=== PATIENT | female | born 1935 | race African-American/Black ===

== ENCOUNTER → 2016-11-30 | Outpatient (CLI) | payer OTHER, MEDICAID ==
[2014-06-05 09:46] VITALS: BP 151/80
[2016-11-30 10:25] LABS: EOSINOPHILS # (AUTO) 0.1 x10^3/uL (0.0-0.2); EOSINOPHILS % (AUTO) 3.6 % (0.9-2.9); HEMOGLOBIN 9.7 g/dL (12.0-16.0); LYMPHOCYTES # (AUTO) 1.6 X10^3/uL (1.3-2.9); LYMPHOCYTES % (AUTO) 41.6 % (21.0-51.0); MEAN CORPUSCULAR HEMOGLOBIN 24.7 pg (27.0-34.0); MEAN CORPUSCULAR HGB CONC 31.2 g/dL (33.0-35.0); MEAN CORPUSCULAR VOLUME 79.4 fL (80.0-100.0); MEAN PLATELET VOLUME 7.6 fL (7.4-11.0); MONOCYTES # (AUTO) 0.4 x10^3/uL (0.3-0.8); MONOCYTES % (AUTO) 11.7 % (0.0-13.0); NEUTROPHILS # (AUTO) 1.6 x10^3/uL (2.2-4.8); NEUTROPHILS % (AUTO) 42.1 % (42.0-75.0); PLATELET COUNT 184 X10^3/uL (150.0-450.0); RED BLOOD COUNT 3.91 X10^6/uL (3.5-5.4); RED CELL DISTRIBUTION WIDTH 17.5 % (11.6-16.5); WHITE BLOOD COUNT 3.8 X10^3/uL (3.6-10.0)
[2016-11-30 11:00] LABS: ALANINE AMINOTRANSFERASE 22 Units/L (12-78); ALBUMIN 3.2 g/dL (3.4-5.0); ALKALINE PHOSPHATASE 43 Units/L (46-116); ASPARTATE AMINO TRANSFERASE 15 Units/L (15-37); BLOOD UREA NITROGEN 14 mg/dL (7-18); CARBON DIOXIDE 30.6 mmol/L (21-32); CHLORIDE 109 mmol/L (98-107); COR CA(FOR HYPOALB) 9.6 mg/dL (8.5-10.1); GLUCOSE 83 mg/dL (65-99); SODIUM 143 mmol/L (136-145); eGFR BLACK RACES > 60 (>60); eGFR NON BLACK RACES 51 (>60)
[2016-11-30 11:28] LABS: ANISOCYTOSIS SLIGHT; HYPOCHROMASIA SLIGHT; PLATELET MORPHOLOGY COMMENT NORMAL (NORMAL)
[2016-11-30 12:10] LABS: IRON 118 ug/dL (50-175); TOTAL IRON BINDING CAPACITY 210 ug/dL (250-450)
[2016-12-04 00:50] LABS: ALBUMIN (SPEP) 3.47 g/dL (3.75-5.01); ALPHA-2 (SPEP) 0.65 g/dL (0.48-1.05); GAMMA (SPEP) 0.51 g/dL (0.62-1.51)
[2016-12-04 07:22] LABS: IMMUNOGLOBULIN M 25 mg/dL (35-263)
== END ==
LOC: LAB 09:41
PROVIDERS: ATTEND Internal Medicine Medical Oncology
DX: C90.02 Multiple myeloma in relapse (principal)
CPT/HCPCS: 36415; 80053; 82728; 82784; 83540; 83550; 84165; 84166; 85025; 86334

== ENCOUNTER 2017-01-16 11:33 | Emergency (ER) | payer OTHER, MEDICAID ==
[2017-01-16 11:37] VITALS: BP 120/55; BMI 23.3
--- NOTE | 2017-01-16 12:46 | DR.GENAD ---
HPI - PCP Primary Care Physician: ARELI OCHOA - HPI Comment HPI Comment: HISTORY BELOW. - Complaint/Symptoms Chief Complaint Doctors Comments: SWOLLEN PAINFUL RT ANKLE AND PAIN NOTED THIS AM. NO TRAUMA REPORTED. Chief Complaint:: RIGHT FOOT SWOLLEN AND PAINFUL. THIS STARTED THIS MORNING. - Nurses notes reviewed Nurses Notes Review: Yes - Source History Provided: Patient - Mode of Arrival Mode of Arrival: Wheelchair - Timing Onset of Chief Complaint: 01/16/17 Came on: Suddenly - Duration Duration: Constant Duration: Hours - Severity Severity: Moderate PMH - PMH Past Medical History: Yes Past Medical History: Anemia, Arthritis, Hypertension Past Surgical History: Yes Surgical History: , Hysterectomy, Tonsillectomy - Family History History of Family Medical Conditions: Yes Family Medical History: Diabetes Mellitus, Cancer, Hypertension - Social History Does patient currently use any type of tobacco product: No Have you used tobacco products in the last 12 months: No Type of Tobacco Use: None Does any household member use tobacco: No Alcohol Use: None Do you use any recreational Drugs:: No Lives With: Family Lives Where: Home - infectious screening In the last 2 months have you had wt loss of >10#?: NO Have you had fever, night sweats or hemotysis?: No Have you traveled outside the country in the last 6 months?: No Isolation: Standard ROS - Review of Systems Constitutional: No Symptoms Reported Eyes: No Symptoms Reported ENTM: No Symptoms Reported Respiratoy: No Symptoms Reported Cardiovascular: No Symptoms Reported Gastrointestinal/Abdominal: No Symptoms Reported Genitourinary: No Symptoms Reported Neurological: No Symptoms Reported Musculoskeletal: Joint Pain, Joint Swelling, Muscle Pain, Right, Ankle, Foot Integumentary: No Symptoms Reported Hematologic/Lymphatic: No Symptoms Reported Endocrine: No Symptoms Reported All Other Systems: Reviewed and Negative PE - Vital Signs Vitals: Temperature 98.4 F Pulse Rate 87 Respiratory Rate 20 Blood Pressure [Right Arm] 110/78 Blood Pressure 120/55 O2 Sat by Pulse Oximetry 99 - General Limitations: No Limitations General Appearance: Alert - Head Head Exam: Normal Inspection - Eyes Eye exam: Normal Appearance - ENT ENT Exam: Normal External Ear Exam External Ear Exam: Normal External Inspection Throat Exam: Normal Inspection - Neck Neck Exam: Trachea Midline. negative: Tenderness, Meningismus, Lymphadenopathy - Chest Chest Inspection: Symmetric Chest Wall Rise - Respiratory Respiratory Exam: Normal Lung Sounds Bilat Respiratory Exam: Bilateral Rhonchi, Lower Rhonchi - Cardiovascular Cardiovascular Exam: Regular Rate, Normal Rhythm, Normal Heart Sounds - Abdominal Exam Abdominal Exam: Normal Inspection - Extremities Extremities Exam: Tenderness (RT FOOT AND ANKLE SWOLLEN AND TENDER.), Joint Swelling (RT ANKLE) - Back Back Exam: Paraspinal Tenderness - Neurologic Neurological Exam: Alert, Oriented X3 - Psychiatric Psychiatric Exam: Normal Affect, Normal Mood - Skin Skin Exam: Normal Color MDM - Additional Information Additional Information Obtained From: Family - Differential Diagnosis Differential Diagnosis: RT ANKLE SPRAIN, RT FOOT SPRAIN Course - Treatment Treatment: SEE ORDERS. POST OP SHOES PLACE IN ED. - Education/Counseling Education/Counseling: Patient, Education Educated On: Treatment, Diagnosis, Needs for Follow Up ROR - XRAY XRAY Interpreted by: Radiologist XRAY Findings: REPORT DISCUSS WITH PATIENT. - Diagnosis Discharge Problem: Ankle sprain Qualifiers: Encounter type: initial encounter Involved ligament of ankle: unspecified ligament Laterality: right Qualified Code(s): S93.401A - Sprain of unspecified ligament of right ankle, initial encounter Foot sprain Qualifiers: Encounter type: initial encounter Laterality: right Qualified Code(s): S93.601A - Unspecified sprain of right foot, initial encounter - Discharge Plan Disposition: HOME, SELF-CARE Condition: Stable Prescriptions: Hydrocodone-Acet 5 mg/325 mg [[place] 5/325 mg Tab] 1 tab PO Q12H PRN #12 tab PRN Reason: Pain - Follow ups/Referrals Follow ups/Referrals: ISSA OCHOA [Primary Care Provider] - 3 days - Instructions Instructions: Foot Contusion, [id number], Ankle Sprain, [id number] Additional Instructions: RETURN TO ED IF WORSE.
--- NOTE | 2017-01-16 13:11 | RAD ---
HISTORY: Pain/swelling. Study: Multiple views of the right foot and ankle. Comparison: None. Findings: Mild osteoarthritis at the 1st MTP joint and dorsal midfoot. Diffuse osteopenia. Marked soft tissue swelling is seen over the dorsal forefoot and about the ankle. No significant effusion. The visualiz ed Lisfranc joint appears intact, but is inadequately evaluated on these nonweightbearing views. No obvious fracture or dislocation. Large calcaneal enthesophyte. The talar dome and ankle mortise luz elena ear intact. IMPRESSION: 1. Soft tissue swelling without obvious acute osseous abnormality. 2. Inadequate evaluation of the Lisfranc joint. If clinically concerned, recommend weight-bearing vi ews. Reported By:
[2017-01-16] MEDS ORDERED: DECADRON TAB PO ONE (13:54)
== END 2017-01-16 14:02 | disposition home or self-care (01) ==
LOC: ER 11:44
DX: S93.401A Sprain of unspecified ligament of right ankle, initial encounter (principal); S93.601A Unspecified sprain of right foot, initial encounter; M79.89 Other specified soft tissue disorders; Y33.XXXA Other specified events, undetermined intent, initial encounter; Y92.9 Unspecified place or not applicable
CPT/HCPCS: 73610; 73630; 99282; 99283

== ENCOUNTER → 2017-04-13 | Outpatient (CLI) | payer OTHER, MEDICAID ==
[2017-04-15 22:06] LABS: ALBUMIN (SPEP) 3.49 g/dL (3.75-5.01); ALPHA-1 (SPEP) 0.44 g/dL (0.19-0.46); ALPHA-2 (SPEP) 0.88 g/dL (0.48-1.05); GAMMA (SPEP) 0.48 g/dL (0.62-1.51)
[2017-04-16 06:35] LABS: IMMUNOGLOBULIN M 25 mg/dL (35-263)
== END ==
LOC: LAB 09:29
PROVIDERS: ATTEND Internal Medicine Medical Oncology
DX: C90.02 Multiple myeloma in relapse (principal); D64.89 Other specified anemias
CPT/HCPCS: 36415; 82784; 84165; 84166

== ENCOUNTER → 2017-04-17 | Outpatient (CLI) | payer OTHER, MEDICAID ==
--- NOTE | 2017-04-19 12:51 | RAD ---
HISTORY: Right shoulder pain. Study: Three views of the right shoulder. Comparison: None. Findings: Mild osteoarthritis of the right acromioclavicular joint. Small subacromial spurring. The visualized lung is clear. No acute cortical disruption or dislocation can be identified. No significant soft ti ssue swelling or injury can be seen. IMPRESSION: Chronic findings as above. Reported By:
--- NOTE | 2017-04-21 06:58 | RAD ---
HISTORY: Chest wall mass Study: Two-view chest Comparison: 06/05/2014 Findings: The trachea is midline. The cardiac silhouette is unremarkable. Chronic interstitial lung changes a re observed without focal infiltrate or effusion.. The bony thorax is unremarkable. IMPRESSION: 1. No acute cardiopulmonary disease. Reported By:
== END | disposition home or self-care (01) ==
LOC: RAD 15:16
PROVIDERS: ATTEND Nurse Practitioner Family
DX: R22.2 Localized swelling, mass and lump, trunk (principal); C90.01 Multiple myeloma in remission; M25.562 Pain in left knee; M25.511 Pain in right shoulder; M75.81 Other shoulder lesions, right shoulder; M19.011 Primary osteoarthritis, right shoulder
CPT/HCPCS: 71020; 73030

== ENCOUNTER → 2017-04-24 | Outpatient (CLI) | payer OTHER, MEDICAID | LOC: LTCLAB 15:59 | PROVIDERS: ATTEND Internal Medicine Medical Oncology | DX: C90.02 Multiple myeloma in relapse (principal); D64.89 Other specified anemias | CPT/HCPCS: 36415 ==

== ENCOUNTER 2017-08-14 11:38 | Emergency (ER) | payer OTHER, MEDICAID ==
[2017-08-14 11:41] VITALS: BP 127/80; BMI 23.3
--- NOTE | 2017-08-14 11:45 | DR.LACERAT ---
HPI - Time Seen Time seen: 11:45 - Primary Care Physician Primary Care Physician: Hakan OCHOA - Complaints Chief Complaint Doctors Comments: History as stated. Chief Complaint:: PT. DROPPED A PACK OF COKES ON HER LEFT LEG [facility]ILE [facility]. LACERATION NOTED TO LOWER PART OF LEFT LEG. - Source History Provided: Patient - Mode of Arrival Mode of Arrival: Ambulatory - Timing Onset of Chief Complaint: 08/14/17 PMH - PMH Past Medical History: Yes Past Medical History: Anemia, Arthritis, Hypertension Past Surgical History: Yes Surgical History: , Hysterectomy, Tonsillectomy - Family History History of Family Medical Conditions: Yes Family Medical History: Diabetes Mellitus, Cancer, Hypertension - Social History Does patient currently use any type of tobacco product: No Have you used tobacco products in the last 12 months: No Type of Tobacco Use: None Does any household member use tobacco: No Alcohol Use: None Do you use any recreational Drugs:: No Lives With: Spouse Lives Where: Home - infectious screening In the last 2 months have you had wt loss of >10#?: NO Have you had fever, night sweats or hemotysis?: No Have you traveled outside the country in the last 6 months?: No Isolation: Standard ROS - Review of Systems Constitutional: No Symptoms Reported Eyes: No Symptoms Reported ENTM: No Symptoms Reported Respiratoy: No Symptoms Reported Cardiovascular: No Symptoms Reported Gastrointestinal/Abdominal: No Symptoms Reported Genitourinary: No Symptoms Reported Neurological: No Symptoms Reported Musculoskeletal: No Symptoms Reported Integumentary: Wound (A superficial abrasion of the left lower extremity anteriorally) Hematologic/Lymphatic: No Symptoms Reported Endocrine: No Symptoms Reported Psychiatric: No Symptoms Reported All Other Systems: Reviewed and Negative PE - Vital Signs Vitals: Temperature 98.4 F Pulse Rate 88 Respiratory Rate 16 Blood Pressure [Right Arm] 110/78 Blood Pressure 127/80 O2 Sat by Pulse Oximetry 97 - General General Appearance: Alert, In No Apparent Distress - Head Head Exam: Normal Inspection, Atraumatic - Eyes Eye exam: Normal Appearance, PERRL, EOMI - ENT ENT Exam: Normal Exam - Neck Neck Exam: Normal Inspection, Full ROM - Chest Chest Inspection: Normal Inspection, Symmetric Chest Wall Rise - Respiratory Respiratory Exam: Normal Lung Sounds Bilat Respiratory Exam: Bilateral Clear to Auscultation - Cardiovascular Cardiovascular Exam: Regular Rate, Normal Rhythm - Abdominal Exam Abdominal Exam: Normal Inspection, Normal Bowel Sounds Abdominal Tenderness: negative: RUQ, RLQ, LUQ, LLQ, Epigastrium, Suprapubic, Diffuse, Mild, Moderate, Severe, Other - Extremities Extremities Exam: Normal Inspection, Full ROM - Back Back Exam: Normal Inspection - Neurologic Neurological Exam: Alert, Oriented X3, CN II-XII Intact - Psychiatric Psychiatric Exam: Normal Affect, Normal Mood - Skin Skin Exam: Warm. negative: Intact (A superficial abrasion left lower anterior tibia) Type of Lesion: Laceration (A superficial laceration) Procedures - Laceration/Wound Repair Left Leg Wound Length (cm): 4 Wound's Depth, Shape: Superficial, Stellate Wound Explored: clean Betadine Prep?: Yes Wound Debrided: minimal Wound Repaired With: Dermabond - Diagnosis Discharge Problem: Abrasion of left leg Qualifiers: Encounter type: initial encounter Qualified Code(s): S80.812A - Abrasion, left lower leg, initial encounter - Discharge Plan Condition: Stable - Follow ups/Referrals Follow ups/Referrals: ISSA OCHOA [Primary Care Provider] - 3 days - Instructions
[2017-08-14] MEDS ORDERED: ADACEL TDaP IM ONE ×2 (12:05→12:06)
== END 2017-08-14 12:14 | disposition home or self-care (01) ==
LOC: ER 11:48
PROC: 0YQTXZZ Repair Right 3rd Toe, External Approach (ICD-10-PCS; principal; 2017-08-14)
DX: S80.812A Abrasion, left lower leg, initial encounter (principal); X58.XXXA Exposure to other specified factors, initial encounter; Y92.512 Supermarket, store or market as the place of occurrence of the external cause
CPT/HCPCS: 12002; 90471; 99282

== ENCOUNTER 2017-08-22 13:49 | Inpatient (IN) | payer OTHER, MEDICAID ==
[2017-08-22 13:56] VITALS: BMI 21.9
--- NOTE | 2017-08-22 14:22 | DR.EXTPAIN ---
HPI - Time seen Time seen: 14:20 - PCP Primary Care Physician: BILL LEARY - HPI Comment HPI Comment: HISTORY BELOW. - Complaint/Symptoms Chief Complaint Doctor Comments: 2 WEEKS AGO, 12 PK DRINK FELL ON LEFT SHEEN AND CUT PATIENT. THIS CUT IS INFECTED NOW WITH ACCENDING AND DECENDING REDNESS. INCREASE TEMP OVER LT LEG. NO FEVER. Chief Complaint:: PT C/O 2 WEEKS AGO DROPPING A 12 PACK OF DRINKS TO HER LEFT LOWER EXT AND SHE WAS SEEN IN ER AND NOT IT'S SWELLING AND PAINFUL... CELLULITITS NOTED AND EDEMA TO LEFT LOWER EXT.. BR - Nurses notes reviewed Nurses Notes Review: Yes - Source History Provided: Patient - Mode of arrival Mode of Arrival: Wheelchair - Timing Onset of Chief Complaint: 08/14/17 - Context History of: Arthritis - Associated signs and symptoms Associated Signs and Symptoms: Pain, Swelling, Bruising PMH - PMH Past Medical History: Yes Past Medical History: Anemia, Arthritis, Hypertension Past Surgical History: Yes Surgical History: , Hysterectomy, Tonsillectomy - Family History History of Family Medical Conditions: Yes Family Medical History: Diabetes Mellitus, Cancer, Hypertension - Social History Does patient currently use any type of tobacco product: No Have you used tobacco products in the last 12 months: No Type of Tobacco Use: None Does any household member use tobacco: No Alcohol Use: None Do you use any recreational Drugs:: No Lives With: Family Lives Where: Home - infectious screening In the last 2 months have you had wt loss of >10#?: NO Have you had fever, night sweats or hemotysis?: No Have you traveled outside the country in the last 6 months?: No Isolation: Standard ROS - Review of Systems Constitutional: No Symptoms Reported Eyes: No Symptoms Reported ENTM: No Symptoms Reported Respiratoy: No Symptoms Reported Cardiovascular: No Symptoms Reported Gastrointestinal/Abdominal: No Symptoms Reported Genitourinary: No Symptoms Reported Neurological: No Symptoms Reported Musculoskeletal: Left, Leg, Ankle, Foot Integumentary: No Symptoms Reported Hematologic/Lymphatic: No Symptoms Reported All Other Systems: Reviewed and Negative PE - Vital Signs Vitals: Temperature 99.0 F Pulse Rate 109 Respiratory Rate 20 Blood Pressure [Right Arm] 110/78 Blood Pressure 113/61 O2 Sat by Pulse Oximetry 99 - General Limitations: No Limitations General Appearance: Alert - Head Head Exam: Normal Inspection - Eyes Eye exam: Normal Appearance - ENT ENT Exam: Normal External Ear Exam - Neck Neck Exam: Normal Inspection - Chest Chest Inspection: Symmetric Chest Wall Rise - Respiratory Respiratory Exam: Normal Lung Sounds Bilat ( ) Respiratory Exam: Bilateral Wheezing - Cardiovascular Cardiovascular Exam: Regular Rate, Normal Rhythm, Normal Heart Sounds - Abdominal Exam Abdominal Exam: Normal Bowel Sounds, Soft. negative: Tenderness - Extremities Extremities Exam: Tenderness (LEFT AND FOOT SWOLLEN AND TENDER. ANTERIOR MID SHEEN HAVE INFECTED LACERATION.) - Lower Extremities Neurovascular/Tendon Exam: Normal Capillary Refill Gait Exam: Observed & Limited by Pain - Back Back Exam: Normal Inspection - Neurological Neurological Exam: Alert, Oriented X3 - Psychiatric Psychiatric Exam: Normal Affect, Normal Mood - Skin Skin Exam: Erythema MDM - Differential Diagnosis Differential Diagnosis: Other (CELLULITIS, INFECTED WOUND.) Course - Treatment Treatment: SEE ORDERS. - Consultation Consultation Comments: DISCUSS PATIENT WITH DR ROMERO. HE WILL ADMIT PATIENT. - Education/Counseling Education/Counseling: Patient, Education Educated On: Treatment, Diagnosis ROR - Labs Reviewed Laboratory Results Reviewed?: Yes Result Diagrams: 08/23/17 04:15 08/23/17 04:15 - Diagnosis Discharge Problem: Cellulitis of left leg Traumatic open wound of left lower leg with infection Qualifiers: Encounter type: initial encounter Qualified Code(s): S81.802A - Unspecified open wound, left lower leg, initial encounter; L08.9 - Local infection of the skin and subcutaneous tissue, unspecified; L08.9 - Local infection of the skin and subcutaneous tissue, unspecified - Discharge Plan Disposition: ADMITTED INPATIENT Condition: Stable - Follow ups/Referrals - Instructions
[2017-08-22] MEDS ORDERED: VANCOMYCIN HCL 1 GM VIAL 1 GM in D5W 250 ML IV 250 ML IV ONE (14:32)
[2017-08-22] MEDS ORDERED: VANCOMYCIN HCL 1 GM VIAL ONE (14:51)
[2017-08-22] MEDS ORDERED: NS 250 ML IV 250 ML IV ONE (14:52)
[2017-08-22] MEDS ORDERED: NS 1000 ML 1,000 ML IV SCH (15:00)
[2017-08-22 15:22] LABS: ALANINE AMINOTRANSFERASE 15 Units/L (12-78); ALBUMIN 3.3 g/dL (3.4-5.0); ALKALINE PHOSPHATASE 46 Units/L (46-116); ASPARTATE AMINO TRANSFERASE 9 Units/L (15-37); BLOOD UREA NITROGEN 13 mg/dL (7-18); CHLORIDE 102 mmol/L (98-107); COR CA(FOR HYPOALB) 9.6 mg/dL (8.5-10.1); SODIUM 137 mmol/L (136-145); TOTAL PROTEIN 6.2 g/dL (6.4-8.2); eGFR BLACK RACES > 60 (>60); eGFR NON BLACK RACES 51 (>60)
[2017-08-22 15:36] LABS: BASOPHILS % (AUTO) 0.1 % (0.2-1.0); EOSINOPHILS # (AUTO) 0.1 x10^3/uL (0.0-0.2); EOSINOPHILS % (AUTO) 1.1 % (0.9-2.9); HEMATOCRIT 29.4 % (36.0-47.0); HEMOGLOBIN 9.6 g/dL (12.0-16.0); LYMPHOCYTES # (AUTO) 0.9 X10^3/uL (1.3-2.9); LYMPHOCYTES % (AUTO) 9.8 % (21.0-51.0); MEAN CORPUSCULAR HEMOGLOBIN 26.2 pg (27.0-34.0); MEAN CORPUSCULAR HGB CONC 32.6 g/dL (33.0-35.0); MEAN CORPUSCULAR VOLUME 80.3 fL (80.0-100.0); MEAN PLATELET VOLUME 8.6 fL (7.4-11.0); MONOCYTES # (AUTO) 0.6 x10^3/uL (0.3-0.8); MONOCYTES % (AUTO) 6.4 % (0.0-13.0); NEUTROPHILS # (AUTO) 7.8 x10^3/uL (2.2-4.8); NEUTROPHILS % (AUTO) 82.6 % (42.0-75.0); PLATELET COUNT 158 X10^3/uL (150.0-450.0); RED BLOOD COUNT 3.66 X10^6/uL (3.5-5.4); RED CELL DISTRIBUTION WIDTH 18.5 % (11.6-16.5); WHITE BLOOD COUNT 9.4 X10^3/uL (3.6-10.0)
[2017-08-22 15:38] LABS: LACTIC ACID 1.3 mmol/L (0.4-2.0)
[2017-08-22] MEDS ORDERED: ZOFRAN INJ 4 MG VIAL IVP PRN (17:50)
[2017-08-22] MEDS: NS 1000 ML 1,000 ML IV SCH (18:25)
[2017-08-22] MEDS: MORPHINE SULFATE INJ 2 MG INJ IVP PRN (18:56)
[2017-08-22] MEDS: PHARMACY CONSULT - VANCOMYCIN XX SCH (19:13)
[2017-08-22] MEDS: ZOSYN VIAL 3.375 GM 3.375 GM in NS 100 ML IV + SPIKE MINIBAG* 100 ML IV SCH (21:42)
[2017-08-23] MEDS: NS 1000 ML 1,000 ML IV SCH ×4 (02:27→17:30)
[2017-08-23] MEDS: ZOSYN VIAL 3.375 GM 3.375 GM in NS 100 ML IV + SPIKE MINIBAG* 100 ML IV SCH ×3 (06:08→21:07)
[2017-08-23 06:13] LABS: BASOPHILS % (AUTO) 0.5 % (0.2-1.0); EOSINOPHILS # (AUTO) 0.3 x10^3/uL (0.0-0.2); EOSINOPHILS % (AUTO) 3.8 % (0.9-2.9); HEMATOCRIT 26.7 % (36.0-47.0); HEMOGLOBIN 8.7 g/dL (12.0-16.0); LYMPHOCYTES # (AUTO) 1.5 X10^3/uL (1.3-2.9); LYMPHOCYTES % (AUTO) 21.7 % (21.0-51.0); MEAN CORPUSCULAR HEMOGLOBIN 25.9 pg (27.0-34.0); MEAN CORPUSCULAR HGB CONC 32.6 g/dL (33.0-35.0); MEAN CORPUSCULAR VOLUME 79.6 fL (80.0-100.0); MEAN PLATELET VOLUME 9.1 fL (7.4-11.0); MONOCYTES # (AUTO) 0.6 x10^3/uL (0.3-0.8); MONOCYTES % (AUTO) 9.1 % (0.0-13.0); NEUTROPHILS # (AUTO) 4.5 x10^3/uL (2.2-4.8); NEUTROPHILS % (AUTO) 64.9 % (42.0-75.0); PLATELET COUNT 138 X10^3/uL (150.0-450.0); RED BLOOD COUNT 3.35 X10^6/uL (3.5-5.4); RED CELL DISTRIBUTION WIDTH 18.8 % (11.6-16.5); WHITE BLOOD COUNT 6.9 X10^3/uL (3.6-10.0)
[2017-08-23 06:28] LABS: ALANINE AMINOTRANSFERASE 10 Units/L (12-78); ALBUMIN 2.5 g/dL (3.4-5.0); ALKALINE PHOSPHATASE 40 Units/L (46-116); ASPARTATE AMINO TRANSFERASE 16 Units/L (15-37); BLOOD UREA NITROGEN 11 mg/dL (7-18); CALCIUM 8.4 mg/dL (8.5-10.1); CARBON DIOXIDE 25.4 mmol/L (21-32); CHLORIDE 105 mmol/L (98-107); COR CA(FOR HYPOALB) 9.6 mg/dL (8.5-10.1); CREATININE 1.04 mg/dL (0.55-1.02); SODIUM 139 mmol/L (136-145); TOTAL PROTEIN 5.4 g/dL (6.4-8.2); eGFR BLACK RACES > 60 (>60); eGFR NON BLACK RACES 54 (>60)
[2017-08-23 07:06] LABS: ANISOCYTOSIS 2+; HYPOCHROMASIA 1+; PLATELET MORPHOLOGY COMMENT NORMAL (NORMAL)
[2017-08-23] MEDS ORDERED: POTASSIUM CITRATE PO SCH (10:00)
[2017-08-23] MEDS ORDERED: BUSPIRONE HCL 7.5 MG PO SCH (10:00)
[2017-08-23] MEDS ORDERED: ZESTRIL TAB 20 MG ONE (10:43)
[2017-08-23] MEDS: ASPIRIN 81 MG CHEWTAB PO SCH (10:46)
[2017-08-23] MEDS: MICRO K EXTEN CAP 10 MEQ PO SCH (10:47)
[2017-08-23] MEDS: NORVASC TAB 5 MG PO SCH (10:47)
[2017-08-23] MEDS: ZESTRIL TAB 20 MG PO SCH (10:47)
[2017-08-23] MEDS: XARELTO PO SCH (10:48)
[2017-08-23] MEDS: PriLOSEC PO SCH ×2 (10:48→20:44)
[2017-08-23] MEDS: BUSPAR PO SCH ×2 (13:32→21:07)
[2017-08-23] MEDS: MORPHINE SULFATE INJ 2 MG INJ IVP PRN ×2 (13:51→21:07)
[2017-08-23] MEDS ORDERED: VANCOMYCIN HCL 1 GM VIAL 1 GM in D5W 250 ML IV 250 ML IV SCH (14:00)
[2017-08-23] MEDS: PHARMACY CONSULT - VANCOMYCIN XX SCH (18:59)
[2017-08-24] MEDS: NS 1000 ML 1,000 ML IV SCH ×3 (05:01→18:09)
[2017-08-24] MEDS: BUSPAR PO SCH ×3 (05:18→21:17)
[2017-08-24] MEDS: ZOSYN VIAL 3.375 GM 3.375 GM in NS 100 ML IV + SPIKE MINIBAG* 100 ML IV SCH ×3 (05:18→21:17)
[2017-08-24 05:22] LABS: BASOPHILS % (AUTO) 0.4 % (0.2-1.0); EOSINOPHILS # (AUTO) 0.3 x10^3/uL (0.0-0.2); EOSINOPHILS % (AUTO) 6.9 % (0.9-2.9); HEMATOCRIT 22.8 % (36.0-47.0); HEMOGLOBIN 7.3 g/dL (12.0-16.0); LYMPHOCYTES # (AUTO) 0.8 X10^3/uL (1.3-2.9); LYMPHOCYTES % (AUTO) 17.5 % (21.0-51.0); MEAN CORPUSCULAR HEMOGLOBIN 25.6 pg (27.0-34.0); MEAN PLATELET VOLUME 9.2 fL (7.4-11.0); MONOCYTES # (AUTO) 0.8 x10^3/uL (0.3-0.8); MONOCYTES % (AUTO) 17.1 % (0.0-13.0); NEUTROPHILS # (AUTO) 2.8 x10^3/uL (2.2-4.8); NEUTROPHILS % (AUTO) 58.1 % (42.0-75.0); PLATELET COUNT 118 X10^3/uL (150.0-450.0); RED BLOOD COUNT 2.85 X10^6/uL (3.5-5.4); RED CELL DISTRIBUTION WIDTH 18.5 % (11.6-16.5); WHITE BLOOD COUNT 4.8 X10^3/uL (3.6-10.0)
[2017-08-24 05:29] LABS: ALANINE AMINOTRANSFERASE 14 Units/L (12-78); ALKALINE PHOSPHATASE 39 Units/L (46-116); ASPARTATE AMINO TRANSFERASE 10 Units/L (15-37); BLOOD UREA NITROGEN 9 mg/dL (7-18); CALCIUM 7.7 mg/dL (8.5-10.1); CARBON DIOXIDE 24.9 mmol/L (21-32); CHLORIDE 108 mmol/L (98-107); COR CA(FOR HYPOALB) 9.3 mg/dL (8.5-10.1); CREATININE 0.94 mg/dL (0.55-1.02); SODIUM 140 mmol/L (136-145); TOTAL PROTEIN 4.7 g/dL (6.4-8.2); eGFR BLACK RACES > 60 (>60); eGFR NON BLACK RACES > 60 (>60)
[2017-08-24 05:35] LABS: PLATELET MORPHOLOGY COMMENT NORMAL (NORMAL)
[2017-08-24 05:36] LABS: ANISOCYTOSIS 2+; HYPOCHROMASIA 1+
[2017-08-24] MEDS ORDERED: ZESTRIL TAB 20 MG ONE (08:20)
[2017-08-24] MEDS: ASPIRIN 81 MG CHEWTAB PO SCH (08:29)
[2017-08-24] MEDS: NORVASC TAB 5 MG PO SCH (08:29)
[2017-08-24] MEDS: PriLOSEC PO SCH ×2 (08:29→20:35)
[2017-08-24] MEDS: XARELTO PO SCH (08:29)
[2017-08-24] MEDS: MICRO K EXTEN CAP 10 MEQ PO SCH (08:29)
[2017-08-24] MEDS: ZESTRIL TAB 20 MG PO SCH (08:29)
[2017-08-24] MEDS: MORPHINE SULFATE INJ 2 MG INJ IVP PRN ×2 (08:48→17:39)
[2017-08-24] MEDS ORDERED: NS 500 ML IV 500 ML IV ONE (09:30)
[2017-08-24] MEDS: CIPRO IV 400 MG PREMIX* 400 MG/200 ML IV.SOLN. IV SCH ×2 (10:34→20:38)
[2017-08-24] MEDS: NORCO 5/325 MG TAB PO PRN (20:35)
[2017-08-25] MEDS: MORPHINE SULFATE INJ 2 MG INJ IVP PRN (01:20)
[2017-08-25] MEDS: BUSPAR PO SCH ×3 (05:34→21:06)
[2017-08-25] MEDS: ZOSYN VIAL 3.375 GM 3.375 GM in NS 100 ML IV + SPIKE MINIBAG* 100 ML IV SCH ×3 (05:34→21:06)
[2017-08-25 05:37] LABS: BASOPHILS % (AUTO) 0.3 % (0.2-1.0); EOSINOPHILS # (AUTO) 0.4 x10^3/uL (0.0-0.2); EOSINOPHILS % (AUTO) 5.6 % (0.9-2.9); HEMATOCRIT 30.6 % (36.0-47.0); HEMOGLOBIN 10.1 g/dL (12.0-16.0); LYMPHOCYTES # (AUTO) 1.1 X10^3/uL (1.3-2.9); LYMPHOCYTES % (AUTO) 14.6 % (21.0-51.0); MEAN CORPUSCULAR HEMOGLOBIN 26.9 pg (27.0-34.0); MEAN CORPUSCULAR HGB CONC 32.9 g/dL (33.0-35.0); MEAN CORPUSCULAR VOLUME 81.7 fL (80.0-100.0); MEAN PLATELET VOLUME 8.3 fL (7.4-11.0); MONOCYTES % (AUTO) 13.7 % (0.0-13.0); NEUTROPHILS # (AUTO) 4.9 x10^3/uL (2.2-4.8); NEUTROPHILS % (AUTO) 65.8 % (42.0-75.0); PLATELET COUNT 124 X10^3/uL (150.0-450.0); RED BLOOD COUNT 3.74 X10^6/uL (3.5-5.4); RED CELL DISTRIBUTION WIDTH 17.6 % (11.6-16.5); WHITE BLOOD COUNT 7.4 X10^3/uL (3.6-10.0)
[2017-08-25] MEDS: NS 1000 ML 1,000 ML IV SCH ×3 (05:38→17:00)
[2017-08-25 05:48] LABS: ALANINE AMINOTRANSFERASE 14 Units/L (12-78); ALBUMIN 2.2 g/dL (3.4-5.0); ALKALINE PHOSPHATASE 56 Units/L (46-116); ASPARTATE AMINO TRANSFERASE 12 Units/L (15-37); BLOOD UREA NITROGEN 9 mg/dL (7-18); CARBON DIOXIDE 25.1 mmol/L (21-32); CHLORIDE 107 mmol/L (98-107); COR CA(FOR HYPOALB) 9.4 mg/dL (8.5-10.1); CREATININE 0.91 mg/dL (0.55-1.02); SODIUM 139 mmol/L (136-145); TOTAL PROTEIN 5.4 g/dL (6.4-8.2); eGFR BLACK RACES > 60 (>60); eGFR NON BLACK RACES > 60 (>60)
[2017-08-25 06:07] LABS: ANISOCYTOSIS 2+; BAND NEUTROPHILS % 3 % (0-10); HYPOCHROMASIA 1+; PLATELET MORPHOLOGY COMMENT NORMAL (NORMAL)
[2017-08-25] MEDS ORDERED: ZESTRIL TAB 20 MG ONE (09:08)
[2017-08-25] MEDS: NORVASC TAB 5 MG PO SCH (09:15)
[2017-08-25] MEDS: NORCO 5/325 MG TAB PO PRN (09:15)
[2017-08-25] MEDS: PriLOSEC PO SCH ×2 (09:15→20:31)
[2017-08-25] MEDS: CIPRO IV 400 MG PREMIX* 400 MG/200 ML IV.SOLN. IV SCH ×2 (09:15→20:32)
[2017-08-25] MEDS: ZESTRIL TAB 20 MG PO SCH (09:15)
[2017-08-25] MEDS: XARELTO PO SCH (09:15)
[2017-08-25] MEDS: MICRO K EXTEN CAP 10 MEQ PO SCH (09:15)
[2017-08-25] MEDS: ASPIRIN 81 MG CHEWTAB PO SCH (09:15)
[2017-08-25] MEDS ORDERED: COLACE CAP 100 MG PO PRN (21:00)
[2017-08-26] MEDS: NS 1000 ML 1,000 ML IV SCH ×4 (00:43→10:36)
[2017-08-26] MEDS: NORCO 5/325 MG TAB PO PRN (00:43)
[2017-08-26] MEDS: ZOSYN VIAL 3.375 GM 3.375 GM in NS 100 ML IV + SPIKE MINIBAG* 100 ML IV SCH (05:25)
[2017-08-26] MEDS: BUSPAR PO SCH (05:25)
[2017-08-26 05:34] LABS: BASOPHILS % (AUTO) 0.4 % (0.2-1.0); EOSINOPHILS # (AUTO) 0.2 x10^3/uL (0.0-0.2); EOSINOPHILS % (AUTO) 3.9 % (0.9-2.9); HEMATOCRIT 28.6 % (36.0-47.0); HEMOGLOBIN 9.5 g/dL (12.0-16.0); LYMPHOCYTES # (AUTO) 0.9 X10^3/uL (1.3-2.9); LYMPHOCYTES % (AUTO) 17.4 % (21.0-51.0); MEAN CORPUSCULAR HEMOGLOBIN 26.9 pg (27.0-34.0); MEAN CORPUSCULAR HGB CONC 33.2 g/dL (33.0-35.0); MEAN CORPUSCULAR VOLUME 81.2 fL (80.0-100.0); MEAN PLATELET VOLUME 7.7 fL (7.4-11.0); MONOCYTES # (AUTO) 0.9 x10^3/uL (0.3-0.8); MONOCYTES % (AUTO) 17.8 % (0.0-13.0); NEUTROPHILS # (AUTO) 3.1 x10^3/uL (2.2-4.8); NEUTROPHILS % (AUTO) 60.5 % (42.0-75.0); PLATELET COUNT 116 X10^3/uL (150.0-450.0); RED BLOOD COUNT 3.52 X10^6/uL (3.5-5.4); RED CELL DISTRIBUTION WIDTH 17.6 % (11.6-16.5); WHITE BLOOD COUNT 5.1 X10^3/uL (3.6-10.0)
[2017-08-26 05:49] LABS: ALANINE AMINOTRANSFERASE 13 Units/L (12-78); ALBUMIN 1.8 g/dL (3.4-5.0); ALKALINE PHOSPHATASE 63 Units/L (46-116); ASPARTATE AMINO TRANSFERASE 11 Units/L (15-37); BLOOD UREA NITROGEN 10 mg/dL (7-18); CARBON DIOXIDE 21.8 mmol/L (21-32); CHLORIDE 109 mmol/L (98-107); COR CA(FOR HYPOALB) 9.8 mg/dL (8.5-10.1); CREATININE 0.89 mg/dL (0.55-1.02); SODIUM 140 mmol/L (136-145); TOTAL PROTEIN 5.1 g/dL (6.4-8.2); eGFR BLACK RACES > 60 (>60); eGFR NON BLACK RACES > 60 (>60)
[2017-08-26] MEDS ORDERED: ZESTRIL TAB 20 MG ONE (08:17)
[2017-08-26] MEDS: PriLOSEC PO SCH (08:26)
[2017-08-26] MEDS: XARELTO PO SCH (08:26)
[2017-08-26] MEDS: ASPIRIN 81 MG CHEWTAB PO SCH (08:26)
[2017-08-26] MEDS: ZESTRIL TAB 20 MG PO SCH (08:27)
[2017-08-26] MEDS: CIPRO IV 400 MG PREMIX* 400 MG/200 ML IV.SOLN. IV SCH (08:27)
[2017-08-26] MEDS: NORVASC TAB 5 MG PO SCH (08:27)
[2017-08-26] MEDS: MICRO K EXTEN CAP 10 MEQ PO SCH (08:27)
[2017-08-26 09:49] VITALS: BP 144/65
== END 2017-08-26 10:57 | disposition home or self-care (01) | DRG 603 ==
LOC: ER 14:02 → MED/SURG 17:41
PROVIDERS: ADMIT Obstetrics & Gynecology Obstetrics; ATTEND Obstetrics & Gynecology Obstetrics
PROC: 30233N1 Transfusion of Nonautologous Red Blood Cells into Peripheral Vein, Percutaneous Approach (ICD-10-PCS; principal; 2017-08-24)
PROC: 30233N1 Transfusion of Nonautologous Red Blood Cells into Peripheral Vein, Percutaneous Approach (ICD-10-PCS; 2017-08-24)
DX: L03.116 Cellulitis of left lower limb (principal); R60.1 Generalized edema; I10 Essential (primary) hypertension; S81.802A Unspecified open wound, left lower leg, initial encounter; K21.9 Gastro-esophageal reflux disease without esophagitis; E87.6 Hypokalemia; F41.8 Other specified anxiety disorders; B96.5 Pseudomonas (aeruginosa) (mallei) (pseudomallei) as the cause of diseases classified elsewhere; Z23 Encounter for immunization; D64.89 Other specified anemias; W20.8XXA Other cause of strike by thrown, projected or falling object, initial encounter; Y92.89 Other specified places as the place of occurrence of the external cause
CPT/HCPCS: 36415; 80053; 82607; 82728; 82746; 83540; 83605; 84466; 85025; 85378; 86140; 86850; 86900; 86901; 86922; 87040; 87070; 87075; 87077; 87186; 87205; 96365; 96367; 96374; 99284; A4222; P9016; J0744; J2270; J2543; J3370

== ENCOUNTER 2017-09-14 09:57 | Emergency (ER) | payer OTHER, MEDICAID ==
[2017-09-14 10:07] VITALS: BP 121/70; BMI 25.0
[2017-09-14] MEDS ORDERED: DECADRON INJ IM ONE (10:16)
[2017-09-14] MEDS ORDERED: DEMEROL INJ IM ONE (10:20)
[2017-09-14] MEDS ORDERED: DEMEROL INJ ONE (10:21)
[2017-09-14] MEDS ORDERED: DECADRON INJ ONE (10:21)
--- NOTE | 2017-09-14 10:21 | DR.GENAD ---
HPI - PCP Primary Care Physician: george croft - Complaint/Symptoms Chief Complaint Doctors Comments: Patient presents with generalized pain secondary to osteoarthritis. Patient refuses to take medication for her condition. Today complains of multi joint pain. Can move without paiin. Chief Complaint:: patient stated her left lower leg and her left wrist has been hurting for the past 30 minutes - Source History Provided: Patient - Mode of Arrival Mode of Arrival: EMS - Timing Onset of Chief Complaint: 09/14/17 PMH - PMH Past Medical History: Yes Past Medical History: Anemia, Arthritis, Hypertension Past Surgical History: Yes Surgical History: , Hysterectomy, Tonsillectomy - Family History History of Family Medical Conditions: Yes Family Medical History: Diabetes Mellitus, Cancer, Hypertension - Social History Does patient currently use any type of tobacco product: No Have you used tobacco products in the last 12 months: No Type of Tobacco Use: None Does any household member use tobacco: No Alcohol Use: None Do you use any recreational Drugs:: No Lives With: Alone Lives Where: Home - infectious screening In the last 2 months have you had wt loss of >10#?: NO Have you had fever, night sweats or hemotysis?: No Have you traveled outside the country in the last 6 months?: No Isolation: Standard ROS - Review of Systems Constitutional: See HPI Eyes: No Symptoms Reported ENTM: No Symptoms Reported Respiratoy: No Symptoms Reported Cardiovascular: No Symptoms Reported Gastrointestinal/Abdominal: No Symptoms Reported Genitourinary: No Symptoms Reported Neurological: No Symptoms Reported Musculoskeletal: See HPI, Other Integumentary: No Symptoms Reported. negative: See HPI (generalized joint pain) , Change in Color, Change in Hair/Nails, Dryness, Lesions, Lumps, Rash, Itching , Wound, Bruises, Juandice, Other Hematologic/Lymphatic: No Symptoms Reported Endocrine: No Symptoms Reported Psychiatric: No Symptoms Reported All Other Systems: Reviewed and Negative PE - Vital Signs Vitals: Temperature 991 F Pulse Rate 104 Respiratory Rate 18 Blood Pressure [Left Arm] 122/58 Blood Pressure [Right Arm] 144/65 Blood Pressure 121/70 O2 Sat by Pulse Oximetry 97 - General Limitations: Physical Limitation General Appearance: Alert, In Distress - Head Head Exam: Normal Inspection, Atraumatic - Eyes Eye exam: Normal Appearance, PERRL, EOMI - ENT ENT Exam: Normal Exam External Ear Exam: Normal External Inspection TM/Canal Exam: Bilateral Normal Nose Exam: Normal Nose Exam Mouth Exam: Normal Inspection Throat Exam: Normal Inspection - Neck Neck Exam: Normal Inspection - Chest Chest Inspection: Normal Inspection - Respiratory Respiratory Exam: Normal Lung Sounds Bilat Respiratory Exam: Bilateral Clear to Auscultation - Cardiovascular Cardiovascular Exam: Regular Rate - Abdominal Exam Abdominal Exam: Normal Inspection Abdominal Tenderness: negative: RUQ, RLQ, LUQ, LLQ, Epigastrium, Suprapubic, Diffuse, Mild, Moderate, Severe, Other - Extremities Extremities Exam: Normal Inspection - Back Back Exam: Normal Inspection - Neurologic Neurological Exam: Alert, Oriented X3, CN II-XII Intact - Psychiatric Psychiatric Exam: Normal Affect, Normal Mood - Skin Skin Exam: Warm, Dry, Intact - Other Exam Other Exam: wnl Course - Treatment Treatment: Decadron, Demerol IM - Reevaluation 1st: Improved - Diagnosis Discharge Problem: Osteoarthritis Qualifiers: Osteoarthritis location: multiple joints Osteoarthritis type: primary Qualified Code(s): M15.0 - Primary generalized (osteo)arthritis - Discharge Plan Condition: Stable - Follow ups/Referrals Follow ups/Referrals: ISSA CROFT [Primary Care Provider] - 3 days - Instructions
== END 2017-09-14 11:49 | disposition home or self-care (01) ==
LOC: ER 10:02
DX: M15.0 Primary generalized (osteo)arthritis (principal)
CPT/HCPCS: 96372; 99282; J1100; J2175

== ENCOUNTER → 2017-09-20 | Outpatient (CLI) | payer OTHER, MEDICAID ==
[2017-09-14 10:07] VITALS: BP 121/70
--- NOTE | 2017-09-20 15:06 | RAD ---
Examination: Left hand, three views History: Pain and swelling Findings: Age-appropriate osteopenia with cortical thinning. Mild degenerative narrowing of several I P joints. No fracture or bone destruction seen. There is significant narrowing, bone sclerosis and alvarez bchondral cystic degeneration at the radiocarpal joint as well as several intracarpal articulations. No soft tissue calcification is identified. 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 Reported By:
--- NOTE | 2017-09-20 15:07 | RAD ---
Examination: Left wrist, three views History: Pain and swelling Findings: There is narrowing of the radiocarpal joint with subchondral sclerosis and cystic degenerat ion. There is also similar degenerative narrowing involving the joint between the lunate and the capi enriquez. No fracture is seen. Impression: Findings consistent with osteoarthritis. This may be primary or related to prior wrist tr auma. Reported By:
== END ==
LOC: RAD 14:29
PROVIDERS: ATTEND Nurse Practitioner Family
DX: M25.542 Pain in joints of left hand (principal); M25.532 Pain in left wrist
CPT/HCPCS: 73100; 73130

== ENCOUNTER 2020-01-29 12:19 | Inpatient (IN) ==
--- NOTE | 2020-01-29 13:00 | DR.EXTPAIN ---
HPI Time seen Time Seen by Provider: 01/29/20 12:49 HPI Comment HPI Comment: PATIENT IS 84YR OLD FEMALE IN ER WITH PAIN IN THE LEFT HIP AFTER A FALL. PATIENT DENIES HEADACHE OR PAIN ELSEWHERE. WAS EVALUATED IN ER ONE WEEK AGO AFTER FALLING AT HOME. SHE DID FINE TILL FALL TODAY. DENIES FEVER OR CONGES TION. Complaint/Symptoms Chief Complaint Doctor Comments: LEFT HIP PAIN, FELL, POSSIBLE SYNCOPAL EPISODE. Chief Complaint:: EMS OUT TO PT WITH C/O FALLING AT HOME .. PT C/O PAIN TO HER RIGHT HIP , POSSIBLE SYNCOPAL EPISODE, ,BR UPON ARRIVAL PT C/O LEFT HIP PAIN ,,BR AND BACK ,, NO DEFORMITY NOTED ,BR COVID-19 Coronavirus risk:travel/contact w/high risk person: No Has patient experienced Coronavirus symptoms: No Nurses notes reviewed Nurses Notes Review: Yes Source History Provided: Patient Mode of arrival Mode of Arrival: EMS Timing Onset of Chief Complaint: 01/29/20 Context History of: Arthritis Associated signs and symptoms Associated Signs and Symptoms: Weakness, Pain and Swelling PMH PMH Past Medical History: Yes Past Medical History: Anemia, Arthritis and Hypertension Past Surgical History: Yes Surgical History: , Hysterectomy and Tonsillectomy Family History History of Family Medical Conditions: Yes Family Medical History: Diabetes Mellitus, Cancer and Hypertension Social History Does patient currently use any type of tobacco product: No Have you used tobacco products in the last 12 months: No Type of Tobacco Use: None Does any household member use tobacco: No Alcohol Use: None Do you use any recreational Drugs:: No Lives With: Family Lives Where: Home Travel Risk Coronavirus risk:travel/contact w/high risk person: No Has patient experienced Coronavirus symptoms: No Infectious screening In the last 2 months have you had wt loss of >10#?: NO Have you had fever, night sweats or hemotysis?: No Have you traveled outside the country in the last 6 months?: No Isolation: Standard ROS Review of Systems Constitutional: See HPI, Weakness and Fatigue; negative Fever Eyes: No Symptoms Reported and See HPI; negative Blurred Vision and Diplopia ENTM: No Symptoms Reported and See HPI; negative Nose Discharge and Nose Congestion Respiratoy: No Symptoms Reported; negative Moist Cough, Short of Breath and Wheezing Cardiovascular: No Symptoms Reported, See HPI and Syncope (POSSIBLE SYNCOPAL EPISODE.); negative Chest Pain Gastrointestinal/Abdominal: No Symptoms Reported and See HPI; negative Abdominal Pain, Diarrhea and Vomiting Genitourinary: No Symptoms Reported and See HPI; negative Dysuria Neurological: See HPI and Weakness; negative Headache and Dizziness Musculoskeletal: No Symptoms Reported, See HPI, Back Pain and Hip (LEFT HIP PAIN) Integumentary: No Symptoms Reported and See HPI; negative Change in Color, Rash and Juandice Hematologic/Lymphatic: See HPI, Anemia and Easy Bruising; negative Swollen Glands Endocrine: No Symptoms Reported and See HPI; negative Increased Thirst and Increased Urine Psychiatric: No Symptoms Reported and See HPI All Other Systems: Reviewed and Negative PE Vital Signs Vitals: Pulse Rate [Right Brachial] 103 Pulse Rate 76 Respiratory Rate 20 Blood Pressure [Left Arm] 112/69 Blood Pressure [Right Arm] 144/65 Blood Pressure 126/61 O2 Sat by Pulse Oximetry 97 General Limitations: No Limitations General Appearance: Alert and In No Apparent Distress Head Head Exam: Normal Inspection and Atraumatic Eyes Eye exam: Normal Appearance and PERRL; negative Scleral Icterus and Conjunctival Injection ENT ENT Exam: Normal Exam, Normal Oropharynx, Normal External Ear Exam and TM's Normal Bilaterally Neck Neck Exam: Normal Inspection and Trachea Midline; negative Tenderness and Lymphadenopathy Chest Chest Inspection: Normal Inspection and Symmetric Chest Wall Rise; negative Tenderness Respiratory Respiratory Exam: Normal Lung Sounds Bilat; negative Accessory Muscle Use, Chest Wall Tenderness and Respiratory Distress Respiratory Exam: Bilateral: Rhonchi and Lower: Rhonchi Cardiovascular Cardiovascular Exam: Regular Rate, Normal Rhythm and Normal Heart Sounds; negative Systolic Murmur and Diastolic Murmur Abdominal Exam Abdominal Exam: Normal Inspection, Normal Bowel Sounds and Soft; negative Tenderness Extremities Extremities Exam: Normal Inspection Lower Extremities Hip/Pelvis Exam: Tenderness (LT HIP) and Swelling (LT HIPLT HIP); negative Full ROM (LT HIP) Back Back Exam: Normal Inspection and Paraspinal Tenderness Neurological Neurological Exam: Alert and Oriented X3; negative Motor Sensory Deficit Psychiatric Psychiatric Exam: Normal Affect and Normal Mood Skin Skin Exam: Warm, Dry, Intact and Normal Color MDM Differential Diagnosis Differential Diagnosis: Contusion (LEFT HIP.), Fracture (LT HIP.) and Sprain (LEFT HIP.) COURSE Treatment Treatment: SEE ORDERS. Consultation Consultation Comments: ORTOPEDIC CONSULT WITH DR. AVILA. HE WANT PATIENT ADMITTED FOR SURGERY IN AM. DISCUSSED PATIENTS CONDITION AND FINDINGS WITH HER DAUGHTER. DISCUSSED PATIENT WITH DR. CABA. HE WILL ADMIT PATIENT. Education/Counseling Education/Counseling: Patient and Family Educated On: Diagnosis ROR Labs Reviewed Laboratory Results Reviewed?: Yes Result Diagrams: 02/04/20 05:15 02/04/20 04:00 Laboratory: WBC 2.5 X10^3/uL (3.6-10.0) L 01/29/20 13:05 RBC 4.09 X10^6/uL (3.5-5.4) 01/29/20 13:05 Hgb 9.7 g/dL (12.0-16.0) L 01/29/20 13:05 Hct 30.4 % (36.0-47.0) L 01/29/20 13:05 MCV 74.2 fL (80.0-100.0) L 01/29/20 13:05 MCH 23.6 pg (27.0-34.0) L 01/29/20 13:05 MCHC 31.8 g/dL (33.0-35.0) L 01/29/20 13:05 RDW 17.7 % (11.6-16.5) H 01/29/20 13:05 Plt Count 165 X10^3/uL (150.0-450.0) 01/29/20 13:05 Plt Count Comment Adequate (ADEQUATE) 01/29/20 13:05 MPV 7.1 fL (7.4-11.0) L 01/29/20 13:05 Neut % (Auto) 44.2 % (42.0-75.0) 01/29/20 13:05 Lymph % (Auto) 42.0 % (21.0-51.0) 01/29/20 13:05 [place] % (Auto) 13.4 % (0.0-13.0) H 01/29/20 13:05 Eos % (Auto) 0.0 % (0.9-2.9) L 01/29/20 13:05 Baso % (Auto) 0.4 % (0.2-1.0) 01/29/20 13:05 Neut # (Auto) 1.1 x10^3/uL (2.2-4.8) L 01/29/20 13:05 Lymph # (Auto) 1.1 X10^3/uL (1.3-2.9) L 01/29/20 13:05 [place] # (Auto) 0.3 x10^3/uL (0.3-0.8) 01/29/20 13:05 Eos # (Auto) 0.0 x10^3/uL (0.0-0.2) 01/29/20 13:05 Baso # (Auto) 0.0 X10^3/uL (0.0-0.1) 01/29/20 13:05 Absolute Nucleated RBC 0.0 /100WBC 01/29/20 13:05 Total Counted 100 01/29/20 13:05 Neutrophils % (Manual) 47 % (39-76) 01/29/20 13:05 Band Neutrophils % 7 % (0-10) 01/29/20 13:05 Lymphocytes % (Manual) 35 % (13-43) 01/29/20 13:05 Monocytes % (Manual) 9 % (4-9) 01/29/20 13:05 Metamyelocytes % 1 01/29/20 13:05 Myelocytes % 1 01/29/20 13:05 Plt Morphology Comment Normal (NORMAL) 01/29/20 13:05 RBC Morphology Abnormal (NORMAL) A 01/29/20 13:05 Hypochromasia 1+ A 01/29/20 13:05 Anisocytosis Slight A 01/29/20 13:05 Microcytosis Slight A 01/29/20 13:05 Ovalocytes Present 01/29/20 13:05 Helmet Cells Present 01/29/20 13:05 [place] Cells Present 01/29/20 13:05 PT 13.4 SECONDS (11.8-14.3) 01/29/20 13:05 INR Target Range - 01/29/20 13:05 INR 1.05 (0.8-1.3) 01/29/20 13:05 APTT 29.8 SECONDS (22.9-36.5) 01/29/20 13:05 PTT Comment - 01/29/20 13:05 Sodium 137 mmol/L (136-145) 01/29/20 13:05 Corrected Sodium TNP 01/29/20 13:05 Potassium 3.7 mmol/L (3.5-5.1) 01/29/20 13:05 Chloride 104 mmol/L (98-107) 01/29/20 13:05 Carbon Dioxide 26.1 mmol/L (21-32) 01/29/20 13:05 BUN 15 mg/dL (7-18) 01/29/20 13:05 Creatinine 1.38 mg/dL (0.55-1.02) H 01/29/20 13:05 Est GFR (MDRD) Af Amer 47 (>60) L 01/29/20 13:05 Est GFR (MDRD) Non-Af 39 (>60) L 01/29/20 13:05 Glucose 98 mg/dL (65-99) 01/29/20 13:05 Calcium 8.7 mg/dL (8.5-10.1) 01/29/20 13:05 Corrected Calcium 9.5 mg/dL (8.5-10.1) 01/29/20 13:05 Iron 33 ug/dL (50-175) L 01/29/20 13:05 Transferrin 115 mg/dL (202-364) L 01/29/20 13:05 Ferritin 1617 ng/mL (8-252) H 01/29/20 13:05 Total Bilirubin 0.20 mg/dL (0.2-1.0) 01/29/20 13:05 AST 26 Units/L (15-37) 01/29/20 13:05 ALT 19 Units/L (12-78) 01/29/20 13:05 Alkaline Phosphatase 65 Units/L (46-116) 01/29/20 13:05 Creatine Kinase 203 Units/L (26-192) H 01/29/20 13:05 CK-MB (CK-2) < 1.0 ng/mL (0-4.0) 01/29/20 13:05 CK/CKMB % Calc 0.5 % (<4) 01/29/20 13:05 Troponin I < 0.02 ng/mL (0-1.5) 01/29/20 13:05 Total Protein 6.1 g/dL (6.4-8.2) L 01/29/20 13:05 Albumin 3.0 g/dL (3.4-5.0) L 01/29/20 13:05 Globulin 3.1 g/dL (2.5-4.5) 01/29/20 13:05 Albumin/Globulin Ratio 1.0 Ratio (1.1-2.1) L 01/29/20 13:05 Vitamin B12 281 pg/mL (193-986) 01/29/20 13:05 Folate 8.5 ng/mL (>8.6) L 01/29/20 13:05 SARS-CoV-2 (PCR) Positive (NEGATIVE) A 01/29/20 14:37 Other Results Comments: FINDINGS Bones are prominently osteopenic. No widening of the symphysis pubis or SI joints. There is a prominently angulated intertrochanteric fracture of the left femur that is new since prior study. No dislocation is seen. Mild arthritic changes are seen in the hips. No other fractures are seen. Ecchymosis is seen in the subcutaneous soft tissues of the left hip. Likely mild edema is seen within the abductor and adductor muscles of the left hip. Phleboliths are seen in the pelvis. No free pelvic fluid is seen. IMPRESSION Prominently angulated intertrochanteric fracture of the left femur. This is likely a benign osteoporotic fracture. XRAY XRAY Interpreted by: Radiologist (REPORT NOTED AND DISCUSSED WITH PATIENT.) and Self (AGREE WITH RADIOLOGIST.) Opioid Opioid Risk Tool Age ([place] box if 16-45): No History of Preadolescent Sexual Abuse: No Total: 0 Total Score Risk Category: Low Risk Copyright: Edilberto BENITES predicting aberrant behaviors Diagnosis Discharge Problem: Hip pain, left, COVID-19 Closed fracture of left hip Qualifiers: Encounter type: initial encounter Qualified Code(s): S72.002A - Fracture of unspecified part of neck of left femur, initial encounter for closed fracture Instructions Forms: Excuse From Work Precautions for COVID19 Patient Portal Social Distancing
[2020-01-29 13:18] LABS: BASOPHILS % (AUTO) 0.4 % (0.2-1.0); HEMATOCRIT 30.4 % (36.0-47.0); HEMOGLOBIN 9.7 g/dL (12.0-16.0); LYMPHOCYTES # (AUTO) 1.1 X10^3/uL (1.3-2.9); MEAN CORPUSCULAR HEMOGLOBIN 23.6 pg (27.0-34.0); MEAN CORPUSCULAR HGB CONC 31.8 g/dL (33.0-35.0); MEAN CORPUSCULAR VOLUME 74.2 fL (80.0-100.0); MEAN PLATELET VOLUME 7.1 fL (7.4-11.0); MONOCYTES # (AUTO) 0.3 x10^3/uL (0.3-0.8); MONOCYTES % (AUTO) 13.4 % (0.0-13.0); NEUTROPHILS # (AUTO) 1.1 x10^3/uL (2.2-4.8); NEUTROPHILS % (AUTO) 44.2 % (42.0-75.0); PLATELET COUNT 165 X10^3/uL (150.0-450.0); RED BLOOD COUNT 4.09 X10^6/uL (3.5-5.4); RED CELL DISTRIBUTION WIDTH 17.7 % (11.6-16.5); WHITE BLOOD COUNT 2.5 X10^3/uL (3.6-10.0)
[2020-01-29 13:36] LABS: BLOOD UREA NITROGEN 15 mg/dL (7-18); CALCIUM 8.7 mg/dL (8.5-10.1); CARBON DIOXIDE 26.1 mmol/L (21-32); CHLORIDE 104 mmol/L (98-107); CREATININE 1.38 mg/dL (0.55-1.02); SODIUM 137 mmol/L (136-145); TROPONIN I < 0.02 ng/mL (0-1.5); eGFR NON BLACK RACES 39 (>60)
--- NOTE | 2020-01-29 13:39 | RAD ---
HISTORYS/P FALL, TRAUMASTUDYPortable AP chestCOMPARISONJuly 2019FINDINGSThere is elevation of the left hemidiaphragm. The lungs are clear. There is no effusion or pneumothorax. The heart and mediastinum are unremarkable. No fracture is demonstrated.IMPRESSIONNo evidence for acute cardiopulmonary diseaseElectronically signed by: CLARA TREVIÑO (Jan 29, 2020 13:37:53)
[2020-01-29 13:40] LABS: ALANINE AMINOTRANSFERASE 19 Units/L (12-78); ALKALINE PHOSPHATASE 65 Units/L (46-116); ASPARTATE AMINO TRANSFERASE 26 Units/L (15-37); CKMB % 0.5 % (<4); COR CA(FOR HYPOALB) 9.5 mg/dL (8.5-10.1); CREATINE KINASE 203 Units/L (26-192); CREATINE KINASE MB < 1.0 ng/mL (0-4.0); TOTAL PROTEIN 6.1 g/dL (6.4-8.2)
--- NOTE | 2020-01-29 13:40 | RAD ---
HISTORYS/P FALL, RIGHT ELBOW PAINSTUDYThree views of the right elbowCOMPARISONNoneFINDINGSThere is a small olecranon spur. There is no elbow joint effusion evident. No significant osteophyte formation is demonstrated. There is no fracture.IMPRESSIONOlecranon spur, otherwise unremarkableElectronically signed by: CLARA TREVIÑO (Jan 29, 2020 13:39:53)
--- NOTE | 2020-01-29 13:44 | CT ---
HISTORYS/P FALL, LEFT HIP PAIN, bone cancerSTUDYCT PELVIS without IV contrastCOMPARISONX-ray 01/22/2020TECHNIQUEMultiple axial images of the pelvis are obtained without the administration of IV contrast. Dose reduction techniques including Automated Exposure Control (AEC) and adjustment of mA and kV were utilized.FINDINGSBones are prominently osteopenic. No widening of the symphysis pubis or SI joints. There is a prominently angulated intertrochanteric fracture of the left femur that is new since prior study. No dislocation is seen. Mild arthritic changes are seen in the hips. No other fractures are seen.Ecchymosis is seen in the subcutaneous soft tissues of the left hip. Likely mild edema is seen within the abductor and adductor muscles of the left hip. Phleboliths are seen in the pelvis. No free pelvic fluid is seen.IMPRESSIONProminently angulated intertrochanteric fracture of the left femur. This is likely a benign osteoporotic fracture.Electronically signed by: Jermain Sargent (Jan 29, 2020 13:43:15)
[2020-01-29 13:47] LABS: BAND NEUTROPHILS % 7 % (0-10)
[2020-01-29 13:48] LABS: METAMYELOCYTES % 1; MYELOCYTES % 1; PLATELET MORPHOLOGY COMMENT NORMAL (NORMAL)
[2020-01-29 13:50] LABS: ANISOCYTOSIS SLIGHT; HELMET CELLS PRESENT; HYPOCHROMASIA 1+; MICROCYTOSIS SLIGHT; OVALOCYTES PRESENT
[2020-01-29 13:51] LABS: BURR CELLS PRESENT
[2020-01-29] MEDS ORDERED: MORPHINE SULFATE INJ 2 MG INJ ONE (14:43)
[2020-01-29] MEDS ORDERED: MORPHINE SULFATE INJ 2 MG INJ IVP ONE (14:48)
[2020-01-29 16:10] LABS: BILIRUBIN,URINE NEGATIVE (NEGATIVE); BLOOD/HEMOGLOBIN,URINE 2+ (NEGATIVE); GLUCOSE, URINE NEGATIVE (NEGATIVE); KETONES,URINE 2+ (NEGATIVE); LEUKOCYTE ESTERASE ,URINE NEGATIVE (NEGATIVE); NITRITES,URINE NEGATIVE (NEGATIVE); PROTEIN,URINE 2+ (NEGATIVE); UROBILINOGEN,URINE NORMAL (NORMAL)
[2020-01-29 16:18] LABS: APPEARANCE,URINE HAZY (CLEAR); COLOR,URINE YELLOW (YELLOW)
[2020-01-29 16:19] LABS: BACTERIA,URINE TRACE /HPF (NEGATIVE); SQUAMOUS EPITHELIAL CELL,UR MANY /HPF (NEGATIVE)
--- NOTE | 2020-01-29 16:35 | CT ---
HEAD (TRAUMA)CLINICAL INDICATION: S/P FALLTECHNIQUE: Images were obtained through the head per standard CT protocol. Multiplanar reformatted images were generated from the CT dataset. Dose reduction techniques including Automated Exposure Control (AEC) and adjustment of mA and kV were utlized.COMPARISON:None.FINDINGS:Diffuse patchy and confluent periventricular and subcortical hypoattenuation with associated volume loss . There is no evidence of acute infarction, intracranial hemorrhage, mass or mass effect, or abnormal extra-axial collection . The density of the larger dural venous sinuses is normal . Age-related, ex-vacuo dilatation of the ventricles and sulci . The skull base and calvarium are normal .The included paranasal sinuses and mastoid air cells are predominantly clear .IMPRESSION:1. No acute intracranial abnormality. Chronic microangiopathic changes and ex vacuo dilatation of the ventricles and sulci.Electronically signed by: ROULA HORAN (Jan 29, 2020 16:34:04)
[2020-01-29] MEDS: NS 1000 ML 1,000 ML IV SCH (19:27)
--- NOTE | 2020-01-29 19:28 | DR.H&P ---
H&P - History & Physical for Day of: H&P Date: 01/29/20 - Chief Complaint Chief Complaint: FALL, LEFT HIP PAIN - History of Present Illness History of Present Illness: PT IS 84 BF ER ADMISSION AFTER PRESENTING WITH CO FALL FOLLOWED BY ACUTE LEFT HIP PAIN. PT STATES SHE TRIPPED WHILE "TRYING TO GET TO PHONE" PT DENIES ANY DIZZINESS OR SYNCOPE. PT HAS PMH OF ANEMIA, GERD AND HTN. PT DENIES ANY CAD OR CHF. PT REPORTS NO RECENT FEVER, CCC. PT WAS COVID POSITIVE ON RAPID SWAB IN ER, CXR CLEAR. PT ADMITTED FOR ACUTE INJURY REQUIRING ORTHO SURGERY INTERVENTION. - Past Medical History Past Medical History: Hypertension, Anemia, Arthritis - Past Surgical History Surgical History: , Hysterectomy, Tonsillectomy - Family History Family Medical History: Diabetes Mellitus, Cancer, Hypertension - Social History Does patient currently use any type of tobacco product: No Have you used tobacco products in the last 12 months: No Type of Tobacco Use: None Does any household member use tobacco: No Alcohol Use: None - Medications Home Medications: codeine Allergy (Verified 01/29/20 12:44) Sulfa (Sulfonamide Antibiotics) [SULFA] Allergy (Verified 01/29/20 12:44) CONTINUE taking the following medications famotidine [Pepcid] 40 mg PO DAILY 01/29/20 [History] furosemide [Lasix] 40 mg PO BID-TID 01/29/20 [History] lenalidomide [Revlimid] 5 mg PO DAILY 01/29/20 [History] nifedipine [Procardia XL] 60 mg PO DAILY 01/29/20 [History] pantoprazole [Protonix] 40 mg PO DAILY 01/29/20 [History] - Review of Systems Constitutional: No Symptoms Reported Eyes: No Symptoms Reported ENT: No Symptoms Reported Respiratory: No Symptoms Reported Cardiovascular: No Symptoms Reported Gastrointestinal: No Symptoms Reported Genitourinary: No Symptoms Reported Musculoskeletal: Leg Pain Skin: No Symptoms Reported Neurological: Weakness (MILD GENERALIZED) - Physical Exam Vital Signs: Temperature 98.1 F Pulse Rate [Right Brachial] 61 Pulse Rate 76 Respiratory Rate 21 Blood Pressure [Left Arm] 131/64 Blood Pressure [Right Arm] 144/65 Blood Pressure 132/68 O2 Sat by Pulse Oximetry 99 Oriented: Normal Eyes: Normal Ear: Normal Nose: Normal Throat: Normal Respiratory: RLL Diminished, LLL Diminished Cardiovascular: Normal. negative: Edema : Normal Palpation: Normal Tenderness: Normal Skin: Decreased [place] Musculoskeletal: Left, Hip, Swelling, Tender Psychiatric: Normal Mood Description: Calm Speech Pattern: Clear, Appropriate - Assessment/Plan (1) Closed fracture of left hip Qualifiers: Encounter type: initial encounter Qualified Code(s): S72.002A - Fracture of unspecified part of neck of left femur, initial encounter for closed fracture Status: Acute Plan: ADMIT, NPO AFTER MIDNIGHT. ORTHO CONSULTATION, MEDICAL CLEARANCE FOR LEFT HIP FRACTURE REPAIR ON 01/30/20. BEDREST, SKELTON CATH, BP AND CARDIAC MONITORING. CXR AND EKG ON ADMISSION, PAIN CONTROL, VERIFY HOME MEDICATION. PT/INR, ANEMIA PANEL, OCCULT STOOL (2) Hypertension Status: Acute (3) COVID-19 Status: Acute Plan: ASYMPTOMATIC, CXR ON ADMISSION. ISOLATION UNIT (4) Osteoarthritis Qualifiers: Osteoarthritis location: multiple joints Osteoarthritis type: primary Status: Acute - Allergies Allergies/Adverse Reactions: Allergies Allergy/AdvReac Type Severity Reaction Status Date / Time codeine Allergy Verified 01/29/20 12:44 Sulfa (Sulfonamide Allergy Verified 01/29/20 12:44 Antibiotics) [SULFA]
[2020-01-29] MEDS ORDERED: PROTONIX INJ 40 MG VIAL IVP SCH (20:00)
[2020-01-29] MEDS ORDERED: ZOFRAN INJ 4 MG VIAL IVP PRN (22:09)
[2020-01-30 05:45] LABS: BASOPHILS % (AUTO) 0.4 % (0.2-1.0); HEMATOCRIT 27.4 % (36.0-47.0); HEMOGLOBIN 8.7 g/dL (12.0-16.0); LYMPHOCYTES # (AUTO) 0.8 X10^3/uL (1.3-2.9); LYMPHOCYTES % (AUTO) 39.6 % (21.0-51.0); MEAN CORPUSCULAR HEMOGLOBIN 23.7 pg (27.0-34.0); MEAN CORPUSCULAR HGB CONC 31.6 g/dL (33.0-35.0); MEAN PLATELET VOLUME 7.8 fL (7.4-11.0); MONOCYTES # (AUTO) 0.4 x10^3/uL (0.3-0.8); MONOCYTES % (AUTO) 19.9 % (0.0-13.0); NEUTROPHILS # (AUTO) 0.8 x10^3/uL (2.2-4.8); NEUTROPHILS % (AUTO) 40.1 % (42.0-75.0); PLATELET COUNT 149 X10^3/uL (150.0-450.0); RED BLOOD COUNT 3.65 X10^6/uL (3.5-5.4); RED CELL DISTRIBUTION WIDTH 17.6 % (11.6-16.5); WHITE BLOOD COUNT 2.1 X10^3/uL (3.6-10.0)
[2020-01-30 05:53] LABS: ALANINE AMINOTRANSFERASE 22 Units/L (12-78); ALBUMIN 2.8 g/dL (3.4-5.0); ALKALINE PHOSPHATASE 57 Units/L (46-116); ASPARTATE AMINO TRANSFERASE 42 Units/L (15-37); BLOOD UREA NITROGEN 13 mg/dL (7-18); CHLORIDE 105 mmol/L (98-107); CREATININE 1.14 mg/dL (0.55-1.02); SODIUM 138 mmol/L (136-145); TOTAL PROTEIN 5.7 g/dL (6.4-8.2); eGFR NON BLACK RACES 49 (>60)
[2020-01-30] MEDS: NS 1000 ML 1,000 ML IV SCH (06:00)
[2020-01-30 06:27] LABS: ANISOCYTOSIS SLIGHT; HYPOCHROMASIA 1+; MICROCYTOSIS SLIGHT; PLATELET MORPHOLOGY COMMENT NORMAL (NORMAL)
[2020-01-30] MEDS ORDERED: NS 100 ML IV 0 ML IV ONE (07:12)
[2020-01-30] MEDS ORDERED: ANCEF 1 GRAM IV PREMIX* 2 G/100 ML BAG IV ONE (07:12)
[2020-01-30] MEDS ORDERED: LR 1000 ML IV 1,000 ML IV ONE (07:12)
[2020-01-30] MEDS ORDERED: FENTANYL INJ 250 mcg ONE (07:27)
[2020-01-30] MEDS ORDERED: SUPRANE ONE ×2 (08:37→14:11)
[2020-01-30] MEDS: FERROUS GLUCONATE PO SCH ×2 (12:21→22:00)
[2020-01-30] MEDS: PROCARDIA XL 24-hr PO SCH (12:21)
[2020-01-30] MEDS: LR 1000 ML IV 1,000 ML IV SCH ×2 (12:22→22:02)
[2020-01-30] MEDS: XARELTO PO SCH (13:13)
[2020-01-30] MEDS ORDERED: DIPRIVAN VIAL ONE (14:11)
[2020-01-30] MEDS ORDERED: QUELICIN (OR ANECTINE) ONE (14:11)
[2020-01-30] MEDS ORDERED: NEOSTIGMINE INJ ONE (14:11)
[2020-01-30] MEDS ORDERED: ROBINUL ONE (14:11)
[2020-01-31] MEDS: LR 1000 ML IV 1,000 ML IV SCH ×3 (01:55→13:17)
[2020-01-31 05:38] LABS: BASOPHILS % (AUTO) 0.3 % (0.2-1.0); HEMOGLOBIN 7.7 g/dL (12.0-16.0); LYMPHOCYTES # (AUTO) 0.9 X10^3/uL (1.3-2.9); LYMPHOCYTES % (AUTO) 31.4 % (21.0-51.0); MEAN CORPUSCULAR HGB CONC 32.3 g/dL (33.0-35.0); MEAN CORPUSCULAR VOLUME 74.2 fL (80.0-100.0); MONOCYTES # (AUTO) 0.6 x10^3/uL (0.3-0.8); MONOCYTES % (AUTO) 20.5 % (0.0-13.0); NEUTROPHILS # (AUTO) 1.4 x10^3/uL (2.2-4.8); NEUTROPHILS % (AUTO) 47.8 % (42.0-75.0); PLATELET COUNT 104 X10^3/uL (150.0-450.0); RED BLOOD COUNT 3.23 X10^6/uL (3.5-5.4); RED CELL DISTRIBUTION WIDTH 17.5 % (11.6-16.5); WHITE BLOOD COUNT 2.9 X10^3/uL (3.6-10.0)
[2020-01-31 06:07] LABS: ALANINE AMINOTRANSFERASE 24 Units/L (12-78); ALBUMIN 2.4 g/dL (3.4-5.0); ALKALINE PHOSPHATASE 46 Units/L (46-116); ASPARTATE AMINO TRANSFERASE 72 Units/L (15-37); BLOOD UREA NITROGEN 11 mg/dL (7-18); CALCIUM 8.4 mg/dL (8.5-10.1); CARBON DIOXIDE 25.5 mmol/L (21-32); CHLORIDE 104 mmol/L (98-107); COR CA(FOR HYPOALB) 9.7 mg/dL (8.5-10.1); COR NA(FOR HYPERGLY) 138 mmol/L (136-145); CREATININE 0.99 mg/dL (0.55-1.02); SODIUM 138 mmol/L (136-145); TOTAL PROTEIN 5.5 g/dL (6.4-8.2); eGFR NON BLACK RACES 57 (>60)
[2020-01-31 06:36] LABS: ANISOCYTOSIS SLIGHT; HYPOCHROMASIA 1+; MICROCYTOSIS SLIGHT; PLATELET MORPHOLOGY COMMENT NORMAL (NORMAL)
[2020-01-31] MEDS: FERROUS GLUCONATE PO SCH ×2 (10:45→22:10)
[2020-01-31] MEDS: XARELTO PO SCH (10:46)
[2020-01-31] MEDS: PROCARDIA XL 24-hr PO SCH (10:46)
[2020-01-31 11:37] LABS: BASOPHILS % (AUTO) 0.3 % (0.2-1.0); EOSINOPHILS % (AUTO) 0.1 % (0.9-2.9); HEMATOCRIT 23.9 % (36.0-47.0); HEMOGLOBIN 7.7 g/dL (12.0-16.0); LYMPHOCYTES # (AUTO) 1.1 X10^3/uL (1.3-2.9); LYMPHOCYTES % (AUTO) 31.8 % (21.0-51.0); MEAN CORPUSCULAR HEMOGLOBIN 23.9 pg (27.0-34.0); MEAN CORPUSCULAR HGB CONC 32.2 g/dL (33.0-35.0); MEAN CORPUSCULAR VOLUME 74.2 fL (80.0-100.0); MEAN PLATELET VOLUME 7.8 fL (7.4-11.0); MONOCYTES # (AUTO) 0.5 x10^3/uL (0.3-0.8); MONOCYTES % (AUTO) 13.2 % (0.0-13.0); NEUTROPHILS # (AUTO) 1.9 x10^3/uL (2.2-4.8); NEUTROPHILS % (AUTO) 54.6 % (42.0-75.0); PLATELET COUNT 131 X10^3/uL (150.0-450.0); RED BLOOD COUNT 3.23 X10^6/uL (3.5-5.4); RED CELL DISTRIBUTION WIDTH 17.2 % (11.6-16.5); WHITE BLOOD COUNT 3.4 X10^3/uL (3.6-10.0)
[2020-01-31 12:26] LABS: BAND NEUTROPHILS % 3 % (0-10); HYPOCHROMASIA 1+; PLATELET MORPHOLOGY COMMENT NORMAL (NORMAL)
[2020-01-31 12:27] LABS: ANISOCYTOSIS SLIGHT; MICROCYTOSIS SLIGHT
[2020-01-31] MEDS: MAGNESIUM SULFATE 1 GRAM/100 mL PREMIX 1 GM/100 ML BAG IV PRN ×2 (16:01→17:00)
[2020-01-31 18:00] LABS: HEMOGLOBIN 7.1 g/dL (12.0-16.0)
[2020-01-31] MEDS: PROTONIX INJ 40 MG VIAL IVP SCH ×2 (21:25→22:10)
[2020-01-31 21:31] LABS: HEMATOCRIT 20.9 % (36.0-47.0)
[2020-01-31 21:38] LABS: HEMOGLOBIN 6.8 g/dL (12.0-16.0)
[2020-01-31] MEDS ORDERED: NS 250 ML IV 250 ML IV ONE (22:45)
[2020-02-01 02:47] LABS: HEMOGLOBIN 7.5 g/dL (12.0-16.0)
[2020-02-01 05:29] LABS: BASOPHILS % (AUTO) 0.5 % (0.2-1.0); HEMATOCRIT 24.6 % (36.0-47.0); HEMOGLOBIN 8.1 g/dL (12.0-16.0); LYMPHOCYTES # (AUTO) 1.2 X10^3/uL (1.3-2.9); LYMPHOCYTES % (AUTO) 32.8 % (21.0-51.0); MEAN CORPUSCULAR VOLUME 75.7 fL (80.0-100.0); MONOCYTES # (AUTO) 0.4 x10^3/uL (0.3-0.8); MONOCYTES % (AUTO) 10.5 % (0.0-13.0); NEUTROPHILS # (AUTO) 2.1 x10^3/uL (2.2-4.8); NEUTROPHILS % (AUTO) 56.2 % (42.0-75.0); PLATELET COUNT 121 X10^3/uL (150.0-450.0); RED BLOOD COUNT 3.25 X10^6/uL (3.5-5.4); RED CELL DISTRIBUTION WIDTH 18.5 % (11.6-16.5); WHITE BLOOD COUNT 3.7 X10^3/uL (3.6-10.0)
[2020-02-01 05:48] LABS: IRON 13 ug/dL (50-175); TOTAL IRON BINDING CAPACITY 84 ug/dL (250-450)
[2020-02-01 05:51] LABS: ALANINE AMINOTRANSFERASE 25 Units/L (12-78); ALBUMIN 1.9 g/dL (3.4-5.0); ALKALINE PHOSPHATASE 48 Units/L (46-116); ASPARTATE AMINO TRANSFERASE 77 Units/L (15-37); BLOOD UREA NITROGEN 13 mg/dL (7-18); CALCIUM 8.2 mg/dL (8.5-10.1); CHLORIDE 104 mmol/L (98-107); COR CA(FOR HYPOALB) 9.9 mg/dL (8.5-10.1); CREATININE 0.98 mg/dL (0.55-1.02); SODIUM 138 mmol/L (136-145); TOTAL PROTEIN 4.9 g/dL (6.4-8.2); eGFR NON BLACK RACES 58 (>60)
[2020-02-01] MEDS: LR 1000 ML IV 1,000 ML IV SCH ×2 (05:58→18:57)
[2020-02-01 06:34] LABS: PLATELET MORPHOLOGY COMMENT NORMAL (NORMAL)
[2020-02-01 06:35] LABS: ANISOCYTOSIS SLIGHT; MICROCYTOSIS SLIGHT
[2020-02-01] MEDS ORDERED: POTASSIUM CHLORIDE LIQ 20 MEQ UDC PO PRN (06:51)
[2020-02-01] MEDS ORDERED: K-DUR TAB 20 MEQ PO PRN (06:51)
[2020-02-01] MEDS ORDERED: POTASSIUM CHL 40 MEQ/NS 0.45% 500 ML IV PRN (06:51)
[2020-02-01] MEDS ORDERED: KLOR-CON PO PRN (06:51)
[2020-02-01] MEDS ORDERED: MICRO K EXTEN CAP 10 MEQ PO PRN (06:51)
[2020-02-01] MEDS ORDERED: POTASSIUM CHL 60 MEQ/NS 0.45% 500 ML IV PRN (06:51)
--- NOTE | 2020-02-01 07:58 | RAD ---
HISTORYSOB, POST SURGICAL EVAL, COVIDSTUDYCHEST, 1 [id number]/23/2020FINDINGSThe trachea is midline. The cardiac silhouette is stable. The lungs are clear without focal infiltrate or effusion. The bony thorax is unremarkable.IMPRESSIONNo acute cardiopulmonary disease.Electronically signed by: ALVARO JOSUE (Feb 01, 2020 07:56:58)
[2020-02-01 09:21] LABS: HEMATOCRIT 24.5 % (36.0-47.0)
[2020-02-01] MEDS: PROTONIX INJ 40 MG VIAL IVP SCH ×2 (10:00→21:16)
[2020-02-01] MEDS: FERROUS GLUCONATE PO SCH ×2 (10:39→21:15)
[2020-02-01] MEDS: PROCARDIA XL 24-hr PO SCH (10:40)
[2020-02-01] MEDS: K-RIDER 10 MEQ/NS 100 ML 10 MEQ/100 ML BAG IV PRN ×2 (10:45→17:00)
[2020-02-01 13:32] LABS: HEMATOCRIT 24.2 % (36.0-47.0); HEMOGLOBIN 7.8 g/dL (12.0-16.0)
[2020-02-01 18:23] LABS: HEMATOCRIT 24.9 % (36.0-47.0); HEMOGLOBIN 8.2 g/dL (12.0-16.0)
[2020-02-02 06:18] LABS: ALANINE AMINOTRANSFERASE 34 Units/L (12-78); ALBUMIN 1.7 g/dL (3.4-5.0); ALKALINE PHOSPHATASE 74 Units/L (46-116); ASPARTATE AMINO TRANSFERASE 75 Units/L (15-37); BLOOD UREA NITROGEN 14 mg/dL (7-18); CALCIUM 8.4 mg/dL (8.5-10.1); CARBON DIOXIDE 28.9 mmol/L (21-32); CHLORIDE 104 mmol/L (98-107); COR CA(FOR HYPOALB) 10.2 mg/dL (8.5-10.1); CREATININE 0.89 mg/dL (0.55-1.02); MAGNESIUM 1.6 mg/dL (1.7-2.9); SODIUM 138 mmol/L (136-145); TOTAL PROTEIN 4.9 g/dL (6.4-8.2); eGFR NON BLACK RACES > 60 (>60)
[2020-02-02] MEDS: MAGNESIUM SULFATE 1 GRAM/100 mL PREMIX 1 GM/100 ML BAG IV PRN ×2 (06:34→07:36)
[2020-02-02 07:42] LABS: BASOPHILS % (AUTO) 0.3 % (0.2-1.0); HEMATOCRIT 23.1 % (36.0-47.0); HEMOGLOBIN 7.6 g/dL (12.0-16.0); LYMPHOCYTES # (AUTO) 0.7 X10^3/uL (1.3-2.9); LYMPHOCYTES % (AUTO) 15.6 % (21.0-51.0); MEAN CORPUSCULAR HEMOGLOBIN 25.3 pg (27.0-34.0); MEAN CORPUSCULAR HGB CONC 33.1 g/dL (33.0-35.0); MEAN CORPUSCULAR VOLUME 76.6 fL (80.0-100.0); MEAN PLATELET VOLUME 7.8 fL (7.4-11.0); MONOCYTES # (AUTO) 0.5 x10^3/uL (0.3-0.8); MONOCYTES % (AUTO) 12.8 % (0.0-13.0); NEUTROPHILS % (AUTO) 71.3 % (42.0-75.0); PLATELET COUNT 137 X10^3/uL (150.0-450.0); RED BLOOD COUNT 3.02 X10^6/uL (3.5-5.4); RED CELL DISTRIBUTION WIDTH 18.6 % (11.6-16.5); WHITE BLOOD COUNT 4.2 X10^3/uL (3.6-10.0)
[2020-02-02 08:13] LABS: HYPOCHROMASIA SLIGHT; PLATELET MORPHOLOGY COMMENT NORMAL (NORMAL)
[2020-02-02] MEDS: FERROUS GLUCONATE PO SCH ×2 (09:58→21:25)
[2020-02-02] MEDS: PROTONIX INJ 40 MG VIAL IVP SCH (09:58)
--- NOTE | 2020-02-02 10:07 | RAD ---
HISTORYShortness of breath and hypertension, postopSTUDYPortable AP chestCOMPARISONYesterday January 31FINDINGSThe lungs are grossly clear. There is slight elevation of the left hemidiaphragm. The heart size is prominent. The ascending aorta is tortuous. There is no edema or effusion or congestion. No lytic or blastic bone lesion is discerned.IMPRESSIONNo evidence for acute cardiopulmonary diseaseElectronically signed by: CLARA TREVIÑO (Feb 02, 2020 10:06:38)
[2020-02-02] MEDS: PROCARDIA XL 24-hr PO SCH (10:16)
[2020-02-02] MEDS: LR 1000 ML IV 1,000 ML IV SCH ×2 (17:28→17:34)
[2020-02-02] MEDS: ZOSYN VIAL 3.375 GRAMS 3.375 G in NS 100 ML IV + SPIKE MINIBAG* 100 ML IV SCH ×2 (18:33→21:25)
[2020-02-02 18:35] LABS: BASOPHILS % (AUTO) 0.4 % (0.2-1.0); HEMATOCRIT 22.7 % (36.0-47.0); HEMOGLOBIN 7.3 g/dL (12.0-16.0); LYMPHOCYTES % (AUTO) 30.4 % (21.0-51.0); MEAN CORPUSCULAR HEMOGLOBIN 24.6 pg (27.0-34.0); MEAN CORPUSCULAR HGB CONC 32.3 g/dL (33.0-35.0); MEAN CORPUSCULAR VOLUME 76.1 fL (80.0-100.0); MEAN PLATELET VOLUME 7.4 fL (7.4-11.0); MONOCYTES # (AUTO) 0.2 x10^3/uL (0.3-0.8); MONOCYTES % (AUTO) 7.8 % (0.0-13.0); NEUTROPHILS # (AUTO) 1.9 x10^3/uL (2.2-4.8); NEUTROPHILS % (AUTO) 61.4 % (42.0-75.0); PLATELET COUNT 171 X10^3/uL (150.0-450.0); RED BLOOD COUNT 2.98 X10^6/uL (3.5-5.4); RED CELL DISTRIBUTION WIDTH 19.1 % (11.6-16.5); WHITE BLOOD COUNT 3.2 X10^3/uL (3.6-10.0)
[2020-02-02 18:54] LABS: PLATELET MORPHOLOGY COMMENT NORMAL (NORMAL)
[2020-02-02 18:55] LABS: ANISOCYTOSIS SLIGHT; HYPOCHROMASIA SLIGHT; MICROCYTOSIS SLIGHT
[2020-02-03] MEDS ORDERED: NS 250 ML IV 250 ML IV ONE (01:31)
[2020-02-03] MEDS: ZOSYN VIAL 3.375 GRAMS 3.375 G in NS 100 ML IV + SPIKE MINIBAG* 100 ML IV SCH ×3 (06:10→21:55)
[2020-02-03] MEDS: LR 1000 ML IV 1,000 ML IV SCH (06:14)
[2020-02-03 06:37] LABS: BASOPHILS % (AUTO) 0.4 % (0.2-1.0); HEMATOCRIT 24.4 % (36.0-47.0); HEMOGLOBIN 8.1 g/dL (12.0-16.0); LYMPHOCYTES % (AUTO) 29.9 % (21.0-51.0); MEAN CORPUSCULAR HEMOGLOBIN 25.9 pg (27.0-34.0); MEAN CORPUSCULAR HGB CONC 33.3 g/dL (33.0-35.0); MEAN CORPUSCULAR VOLUME 77.7 fL (80.0-100.0); MEAN PLATELET VOLUME 7.3 fL (7.4-11.0); MONOCYTES # (AUTO) 0.3 x10^3/uL (0.3-0.8); MONOCYTES % (AUTO) 7.7 % (0.0-13.0); NEUTROPHILS # (AUTO) 2.1 x10^3/uL (2.2-4.8); PLATELET COUNT 179 X10^3/uL (150.0-450.0); RED BLOOD COUNT 3.15 X10^6/uL (3.5-5.4); RED CELL DISTRIBUTION WIDTH 19.3 % (11.6-16.5); WHITE BLOOD COUNT 3.4 X10^3/uL (3.6-10.0)
[2020-02-03 06:48] LABS: ALANINE AMINOTRANSFERASE 36 Units/L (12-78); ALBUMIN 1.7 g/dL (3.4-5.0); ALKALINE PHOSPHATASE 80 Units/L (46-116); ASPARTATE AMINO TRANSFERASE 69 Units/L (15-37); BLOOD UREA NITROGEN 15 mg/dL (7-18); CALCIUM 8.2 mg/dL (8.5-10.1); CARBON DIOXIDE 28.3 mmol/L (21-32); CHLORIDE 104 mmol/L (98-107); CREATININE 0.93 mg/dL (0.55-1.02); SODIUM 138 mmol/L (136-145); eGFR NON BLACK RACES > 60 (>60)
[2020-02-03 07:15] LABS: ANISOCYTOSIS SLIGHT; HYPOCHROMASIA SLIGHT; PLATELET MORPHOLOGY COMMENT NORMAL (NORMAL)
[2020-02-03] MEDS: FERROUS GLUCONATE PO SCH ×2 (09:03→21:55)
[2020-02-03] MEDS: PROCARDIA XL 24-hr PO SCH (09:04)
[2020-02-03] MEDS: PROTONIX INJ 40 MG VIAL IVP SCH ×2 (09:04→21:55)
[2020-02-03] MEDS: XARELTO PO SCH (09:04)
[2020-02-03 10:50] VITALS: BMI 28.6
[2020-02-03] MEDS: NORCO 5/325 MG TAB PO PRN (13:12)
[2020-02-03] MEDS: MAGNESIUM SULFATE 1 GRAM/100 mL PREMIX 1 GM/100 ML BAG IV PRN ×2 (17:13→18:23)
[2020-02-04] MEDS: ZOSYN VIAL 3.375 GRAMS 3.375 G in NS 100 ML IV + SPIKE MINIBAG* 100 ML IV SCH ×4 (00:05→21:02)
[2020-02-04] MEDS: LR 1000 ML IV 1,000 ML IV SCH ×3 (00:05→21:02)
[2020-02-04 05:14] LABS: ALANINE AMINOTRANSFERASE 39 Units/L (12-78); ALBUMIN 1.8 g/dL (3.4-5.0); ALKALINE PHOSPHATASE 92 Units/L (46-116); ASPARTATE AMINO TRANSFERASE 68 Units/L (15-37); BLOOD UREA NITROGEN 15 mg/dL (7-18); CALCIUM 8.5 mg/dL (8.5-10.1); CARBON DIOXIDE 26.5 mmol/L (21-32); CHLORIDE 104 mmol/L (98-107); COR CA(FOR HYPOALB) 10.3 mg/dL (8.5-10.1); CREATININE 0.95 mg/dL (0.55-1.02); MAGNESIUM 1.8 mg/dL (1.7-2.9); SODIUM 138 mmol/L (136-145); TOTAL PROTEIN 5.6 g/dL (6.4-8.2); eGFR NON BLACK RACES 60 (>60)
[2020-02-04 05:29] LABS: HEMATOCRIT 27.9 % (36.0-47.0); HEMOGLOBIN 9.2 g/dL (12.0-16.0); LYMPHOCYTES # (AUTO) 1.1 X10^3/uL (1.3-2.9); MEAN CORPUSCULAR HEMOGLOBIN 25.7 pg (27.0-34.0); MEAN CORPUSCULAR HGB CONC 32.8 g/dL (33.0-35.0); MEAN CORPUSCULAR VOLUME 78.4 fL (80.0-100.0); MEAN PLATELET VOLUME 7.2 fL (7.4-11.0); PLATELET COUNT 204 X10^3/uL (150.0-450.0); RED BLOOD COUNT 3.56 X10^6/uL (3.5-5.4); RED CELL DISTRIBUTION WIDTH 19.9 % (11.6-16.5); WHITE BLOOD COUNT 3.6 X10^3/uL (3.6-10.0)
[2020-02-04 06:07] LABS: NEUTROPHILS % (AUTO) 59.8 % (42.0-75.0)
[2020-02-04 06:09] LABS: BASOPHILS % (AUTO) 0.6 % (0.2-1.0); EOSINOPHILS % (AUTO) 0.4 % (0.9-2.9); LYMPHOCYTES % (AUTO) 30.4 % (21.0-51.0); MONOCYTES % (AUTO) 8.8 % (0.0-13.0)
[2020-02-04 06:10] LABS: MONOCYTES # (AUTO) 0.3 x10^3/uL (0.3-0.8); NEUTROPHILS # (AUTO) 2.1 x10^3/uL (2.2-4.8)
[2020-02-04 06:11] LABS: ANISOCYTOSIS SLIGHT; HYPOCHROMASIA SLIGHT; PLATELET MORPHOLOGY COMMENT NORMAL (NORMAL)
[2020-02-04] MEDS: PROTONIX INJ 40 MG VIAL IVP SCH ×2 (09:00→21:02)
[2020-02-04] MEDS: PROCARDIA XL 24-hr PO SCH (09:16)
[2020-02-04] MEDS: XARELTO PO SCH (09:16)
[2020-02-04] MEDS: FERROUS GLUCONATE PO SCH ×2 (09:16→21:02)
--- NOTE | 2020-02-04 10:19 | RAD ---
HISTORYCOUGH, COVID +STUDYPortable AP chestCOMPARISONJuly 2019FINDINGSThere is continuum mild elevation of the left hemidiaphragm. There is chronic interstitial lung disease. The heart size is normal. There is no pleural effusion. A mild infiltrate suggested at the right lung base.IMPRESSIONQuestionable pneumonitis in the right lower lobeElectronically signed by: CLARA TREVIÑO (Feb 04, 2020 10:18:28)
[2020-02-05 05:18] LABS: BASOPHILS % (AUTO) 0.4 % (0.2-1.0); EOSINOPHILS % (AUTO) 0.1 % (0.9-2.9); HEMATOCRIT 25.8 % (36.0-47.0); HEMOGLOBIN 8.5 g/dL (12.0-16.0); LYMPHOCYTES % (AUTO) 27.7 % (21.0-51.0); MEAN CORPUSCULAR HEMOGLOBIN 25.8 pg (27.0-34.0); MEAN CORPUSCULAR VOLUME 78.4 fL (80.0-100.0); MEAN PLATELET VOLUME 7.5 fL (7.4-11.0); MONOCYTES # (AUTO) 0.3 x10^3/uL (0.3-0.8); MONOCYTES % (AUTO) 8.5 % (0.0-13.0); NEUTROPHILS # (AUTO) 2.4 x10^3/uL (2.2-4.8); NEUTROPHILS % (AUTO) 63.3 % (42.0-75.0); PLATELET COUNT 244 X10^3/uL (150.0-450.0); RED BLOOD COUNT 3.29 X10^6/uL (3.5-5.4); RED CELL DISTRIBUTION WIDTH 19.4 % (11.6-16.5); WHITE BLOOD COUNT 3.8 X10^3/uL (3.6-10.0)
[2020-02-05 05:25] LABS: ALANINE AMINOTRANSFERASE 38 Units/L (12-78); ALBUMIN 1.8 g/dL (3.4-5.0); ALKALINE PHOSPHATASE 85 Units/L (46-116); ASPARTATE AMINO TRANSFERASE 66 Units/L (15-37); BLOOD UREA NITROGEN 19 mg/dL (7-18); CALCIUM 8.2 mg/dL (8.5-10.1); CARBON DIOXIDE 29.7 mmol/L (21-32); CHLORIDE 106 mmol/L (98-107); CREATININE 1.04 mg/dL (0.55-1.02); SODIUM 140 mmol/L (136-145); TOTAL PROTEIN 5.3 g/dL (6.4-8.2); eGFR NON BLACK RACES 54 (>60)
[2020-02-05] MEDS: ZOSYN VIAL 3.375 GRAMS 3.375 G in NS 100 ML IV + SPIKE MINIBAG* 100 ML IV SCH ×3 (05:35→22:00)
[2020-02-05 06:32] LABS: ANISOCYTOSIS SLIGHT; HYPOCHROMASIA SLIGHT; PLATELET MORPHOLOGY COMMENT NORMAL (NORMAL)
[2020-02-05] MEDS: FERROUS GLUCONATE PO SCH ×2 (08:32→22:00)
[2020-02-05] MEDS: PROTONIX INJ 40 MG VIAL IVP SCH ×2 (08:33→22:00)
[2020-02-05] MEDS: PROCARDIA XL 24-hr PO SCH (08:33)
[2020-02-05] MEDS: XARELTO PO SCH (08:33)
[2020-02-05] MEDS: MAGNESIUM SULFATE 1 GRAM/100 mL PREMIX 1 GM/100 ML BAG IV PRN ×2 (10:50→13:00)
[2020-02-05] MEDS: LR 1000 ML IV 1,000 ML IV SCH ×2 (11:12→22:55)
--- NOTE | 2020-02-05 11:13 | RAD ---
HISTORYCOUGH, COVID +STUDYPortable AP chestCOMPARISONYesterday February 03FINDINGSThere is diffuse chronic interstitial lung disease. The heart and mediastinum are unremarkable. There is mild elevation of the left hemidiaphragm. No definite lung consolidation is demonstrated on today's exam. There is no pleural effusion.IMPRESSIONNo definite acute cardiopulmonary diseaseElectronically signed by: CLARA TREVIÑO (Feb 05, 2020 11:11:48)
[2020-02-05] MEDS: MORPHINE SULFATE INJ 2 MG INJ IVP PRN ×2 (11:25→22:15)
[2020-02-06] MEDS: ZOSYN VIAL 3.375 GRAMS 3.375 G in NS 100 ML IV + SPIKE MINIBAG* 100 ML IV SCH ×3 (05:24→21:31)
[2020-02-06 06:01] LABS: ALANINE AMINOTRANSFERASE 37 Units/L (12-78); ALBUMIN 1.7 g/dL (3.4-5.0); ALKALINE PHOSPHATASE 77 Units/L (46-116); ASPARTATE AMINO TRANSFERASE 62 Units/L (15-37); BLOOD UREA NITROGEN 20 mg/dL (7-18); CALCIUM 8.3 mg/dL (8.5-10.1); CARBON DIOXIDE 25.1 mmol/L (21-32); CHLORIDE 106 mmol/L (98-107); COR CA(FOR HYPOALB) 10.1 mg/dL (8.5-10.1); CREATININE 0.97 mg/dL (0.55-1.02); SODIUM 140 mmol/L (136-145); TOTAL PROTEIN 5.3 g/dL (6.4-8.2); eGFR NON BLACK RACES 58 (>60)
[2020-02-06 06:01] LABS: BASOPHILS % (AUTO) 0.5 % (0.2-1.0); EOSINOPHILS % (AUTO) 0.1 % (0.9-2.9); HEMATOCRIT 30.9 % (36.0-47.0); LYMPHOCYTES # (AUTO) 1.2 X10^3/uL (1.3-2.9); LYMPHOCYTES % (AUTO) 28.7 % (21.0-51.0); MEAN CORPUSCULAR HEMOGLOBIN 25.1 pg (27.0-34.0); MEAN CORPUSCULAR HGB CONC 32.2 g/dL (33.0-35.0); MEAN PLATELET VOLUME 6.8 fL (7.4-11.0); MONOCYTES # (AUTO) 0.4 x10^3/uL (0.3-0.8); MONOCYTES % (AUTO) 9.5 % (0.0-13.0); NEUTROPHILS # (AUTO) 2.6 x10^3/uL (2.2-4.8); NEUTROPHILS % (AUTO) 61.2 % (42.0-75.0); PLATELET COUNT 256 X10^3/uL (150.0-450.0); RED BLOOD COUNT 3.97 X10^6/uL (3.5-5.4); RED CELL DISTRIBUTION WIDTH 20.1 % (11.6-16.5); WHITE BLOOD COUNT 4.2 X10^3/uL (3.6-10.0)
[2020-02-06 06:18] LABS: ANISOCYTOSIS 1+; HYPOCHROMASIA SLIGHT; PLATELET MORPHOLOGY COMMENT NORMAL (NORMAL)
[2020-02-06] MEDS: PROTONIX INJ 40 MG VIAL IVP SCH ×2 (09:32→21:30)
[2020-02-06] MEDS: PROCARDIA XL 24-hr PO SCH (09:32)
[2020-02-06] MEDS: FERROUS GLUCONATE PO SCH ×2 (09:32→21:30)
[2020-02-06] MEDS: XARELTO PO SCH (09:33)
[2020-02-06] MEDS ORDERED: REMDESIVIR **DO NOT USE THIS ITEM# ** 200 MG in NS 250 ML IV 250 ML IV ONE (11:00)
[2020-02-06] MEDS: PROCALAMINE 3 % 1,000 ML IV SCH (11:21)
[2020-02-06] MEDS: LR 1000 ML IV 1,000 ML IV SCH (19:56)
[2020-02-07 05:37] LABS: BASOPHILS % (AUTO) 0.6 % (0.2-1.0); HEMATOCRIT 24.3 % (36.0-47.0); HEMOGLOBIN 8.1 g/dL (12.0-16.0); LYMPHOCYTES # (AUTO) 0.8 X10^3/uL (1.3-2.9); MEAN CORPUSCULAR HEMOGLOBIN 26.1 pg (27.0-34.0); MEAN CORPUSCULAR HGB CONC 33.2 g/dL (33.0-35.0); MEAN CORPUSCULAR VOLUME 78.7 fL (80.0-100.0); MONOCYTES # (AUTO) 0.4 x10^3/uL (0.3-0.8); NEUTROPHILS % (AUTO) 62.4 % (42.0-75.0); PLATELET COUNT 260 X10^3/uL (150.0-450.0); RED BLOOD COUNT 3.09 X10^6/uL (3.5-5.4); RED CELL DISTRIBUTION WIDTH 20.1 % (11.6-16.5); WHITE BLOOD COUNT 3.2 X10^3/uL (3.6-10.0)
--- NOTE | 2020-02-07 05:54 | RAD ---
HISTORYCough, bone cancerSTUDYAP [id number]/30/2020FINDINGSStable heart size with aortic ectasia and diffuse interstitial increase bilaterally. No developing consolidation or pneumothorax or pleural fluid. There is suggestion of a noncalcified 1.5 cm nodule in the right midlung.IMPRESSIONSuspect right midlung nodule which may represent metastatic disease, given the history provided. Otherwise there is no change in appearance of the chest. Continued follow-up suggested to confirm.Electronically signed by: SUMIT DONG (Feb 07, 2020 05:53:49)
[2020-02-07] MEDS: ZOSYN VIAL 3.375 GRAMS 3.375 G in NS 100 ML IV + SPIKE MINIBAG* 100 ML IV SCH ×3 (05:57→21:48)
[2020-02-07] MEDS: LR 1000 ML IV 1,000 ML IV SCH ×2 (05:57→11:43)
[2020-02-07 05:59] LABS: ALANINE AMINOTRANSFERASE 38 Units/L (12-78); ALBUMIN 1.6 g/dL (3.4-5.0); ALKALINE PHOSPHATASE 80 Units/L (46-116); ASPARTATE AMINO TRANSFERASE 61 Units/L (15-37); BLOOD UREA NITROGEN 23 mg/dL (7-18); CALCIUM 8.2 mg/dL (8.5-10.1); CARBON DIOXIDE 27.7 mmol/L (21-32); CHLORIDE 107 mmol/L (98-107); COR CA(FOR HYPOALB) 10.1 mg/dL (8.5-10.1); CREATININE 0.93 mg/dL (0.55-1.02); SODIUM 141 mmol/L (136-145); TOTAL PROTEIN 4.9 g/dL (6.4-8.2); eGFR NON BLACK RACES > 60 (>60)
[2020-02-07 06:27] LABS: ANISOCYTOSIS 1+; HYPOCHROMASIA SLIGHT; PLATELET MORPHOLOGY COMMENT NORMAL (NORMAL)
[2020-02-07] MEDS: FERROUS GLUCONATE PO SCH ×2 (10:21→21:47)
[2020-02-07] MEDS: REMDESIVIR **DO NOT USE THIS ITEM# ** 100 MG in NS 250 ML IV 250 ML IV SCH (10:21)
[2020-02-07] MEDS: PROCARDIA XL 24-hr PO SCH (10:22)
[2020-02-07] MEDS: XARELTO PO SCH (10:22)
[2020-02-07] MEDS: PROTONIX INJ 40 MG VIAL IVP SCH ×2 (10:22→21:48)
[2020-02-08] MEDS: ZOSYN VIAL 3.375 GRAMS 3.375 G in NS 100 ML IV + SPIKE MINIBAG* 100 ML IV SCH ×3 (05:23→21:33)
[2020-02-08 05:41] LABS: BASOPHILS % (AUTO) 0.8 % (0.2-1.0); EOSINOPHILS % (AUTO) 0.3 % (0.9-2.9); HEMATOCRIT 23.9 % (36.0-47.0); HEMOGLOBIN 7.9 g/dL (12.0-16.0); LYMPHOCYTES # (AUTO) 1.2 X10^3/uL (1.3-2.9); LYMPHOCYTES % (AUTO) 26.8 % (21.0-51.0); MEAN CORPUSCULAR HGB CONC 33.2 g/dL (33.0-35.0); MEAN CORPUSCULAR VOLUME 78.4 fL (80.0-100.0); MEAN PLATELET VOLUME 8.3 fL (7.4-11.0); MONOCYTES # (AUTO) 0.4 x10^3/uL (0.3-0.8); NEUTROPHILS # (AUTO) 2.7 x10^3/uL (2.2-4.8); NEUTROPHILS % (AUTO) 62.1 % (42.0-75.0); PLATELET COUNT 290 X10^3/uL (150.0-450.0); RED BLOOD COUNT 3.05 X10^6/uL (3.5-5.4); RED CELL DISTRIBUTION WIDTH 19.8 % (11.6-16.5); WHITE BLOOD COUNT 4.3 X10^3/uL (3.6-10.0)
[2020-02-08 05:44] LABS: ALANINE AMINOTRANSFERASE 35 Units/L (12-78); ALBUMIN 1.7 g/dL (3.4-5.0); ALKALINE PHOSPHATASE 80 Units/L (46-116); ASPARTATE AMINO TRANSFERASE 47 Units/L (15-37); BLOOD UREA NITROGEN 27 mg/dL (7-18); CALCIUM 8.1 mg/dL (8.5-10.1); CARBON DIOXIDE 26.6 mmol/L (21-32); CHLORIDE 106 mmol/L (98-107); COR CA(FOR HYPOALB) 9.9 mg/dL (8.5-10.1); CREATININE 0.99 mg/dL (0.55-1.02); SODIUM 139 mmol/L (136-145); TOTAL PROTEIN 4.9 g/dL (6.4-8.2); eGFR NON BLACK RACES 57 (>60)
[2020-02-08 06:02] LABS: ABG ALLEN TEST POS; ABG BASE EXCESS 4.8 mmol/L (-2.0-2.0); ABG HCO3 28.1 mmol/L (22-26)
[2020-02-08 06:16] LABS: PLATELET MORPHOLOGY COMMENT NORMAL (NORMAL)
[2020-02-08 06:17] LABS: ANISOCYTOSIS SLIGHT; HYPOCHROMASIA SLIGHT; OVALOCYTES PRESENT
--- NOTE | 2020-02-08 06:57 | RAD ---
HISTORYSOB bone cancerSTUDYPortable AP [id number]/01/2020FINDINGSThere is no change in appearance of heart, lungs or mediastinum. Diffuse interstitial prominence is again noted bilaterally. Suggestion of nodule formation in right midlung.IMPRESSIONNo change since 1 day earlier. See above.Electronically signed by: SUMIT DONG (Feb 08, 2020 06:56:26)
[2020-02-08] MEDS: MAGNESIUM SULFATE 1 GRAM/100 mL PREMIX 1 GM/100 ML BAG IV PRN (09:19)
[2020-02-08] MEDS: FERROUS GLUCONATE PO SCH ×2 (09:56→20:52)
[2020-02-08] MEDS: XARELTO PO SCH (09:56)
[2020-02-08] MEDS: PROTONIX INJ 40 MG VIAL IVP SCH ×2 (09:57→20:52)
[2020-02-08] MEDS: PROCARDIA XL 24-hr PO SCH (09:57)
[2020-02-08] MEDS: REMDESIVIR **DO NOT USE THIS ITEM# ** 100 MG in NS 250 ML IV 250 ML IV SCH (11:24)
--- NOTE | 2020-02-08 12:26 | PCM.PROG ---
Progress Note - Progress Note for Day of Date of Exam: 02/07/20 - Subjective Subjective: IS A 84 YEAR OLD PATIENT OF . SHE WAS ADMITTED FOLLOWING A TRAMATIC LEFT HIP FRACTURE REPAIR LAST SUNDAY BY . SHE WAS ALSO NOTED TO BE COVID-19 POSITIVE, ASYMPTOMATIC ON ADMISSION. SHE HAS BEEN RECEIVING POSTOPERATEIVE WOUND CARE AND PHYSICAL THERAPY SINCE ADMISSION. SHE DID BEGIN HAVING FEVER AND COUGH AFTER ADMISSION. SHE WAS STARTED ON THE REMDESIVIR REGIMEN FOR COVID-19 AND ACUTE BRONCHITIS. SHE ALSO GREW OUT E.COLI IN HER URINE. TODAY, SHE IS ALERT AND ORIENTED, LYING IN BED ON MORNING ROUNDS. SHE REPORTS WEAKNESS AND SHORTNESS OF BREATH THIS MORNING. SHE ALSO ADMITS TO MILD LEFT HIP PAIN. ON EXAMINATION, HEART IS REGULAR IN RATE AND RHYTHM. BILATER AL LUNGS ARE NOTED WITH SCATTERED WHEEZING THROUGHOUT. ABDOMEN IS ROUND, SOFT, AND NON-TENDER WITH NORMAL BOWEL SOUNDS NOTED IN ALL QUADRANTS. NO LOWER EXTREMITY EDEMA NOTED. THERE IS A SURGICAL DRESSING TO RIGHT HIP WITH NO S/SX INFECTION NOTED. HER VITALS THIS MORNING ARE: 99.1-81-99%-20-114/51. LABS WERE OBTAINED. ABNORMAL LAB VALUES INCLUDE THE FOLLOWING: RBC 3.02, HGB 7.6, HCT 23.1, BUN 23, CALCIUM 8.2, AST 61, TOTAL PROTEIN 4.9, ALBUMIN 1.6, CRP 97.40, FERRITIN 2612. A CHEST XRAY WAS OBTAINED AND REVEALED: Suspect right midlung nodule which may represent metastatic disease, given the history provided. Otherwise there is no change in appearance of the chest. Continued follow-up suggested to confirm. SHE IS CURRENTLY RECEIVING ZOSYN 3.375G IV TID, PROCALAMINE AT 40 ML/HR, LR AT [facility], THE POTASSIUM AND MAGNESIUM PROTOCOLS, REMDESIVIR 100MG IV DAILY, XARELTO 15MG PO DAILY, NORCO 5/325MG PO Q6H PRN, ZOFRAN, PROTONIX, FERROUS GLUCONATE, PROCARDIA, AND MORPHINE 2-4MG IV Q4H PRN. WE WILL CONTINUE WITH CURRENT PLAN OF CARE TODAY. OTHERWISE, WE WILL FOLLOW UP WITH AM LABS AND CHEST XRAY AND CONTINUE TO MONITOR. - Past Medical Family Social History Past Med/Fam/Surg Hx: No changes since H&P Allergies: Allergies codeine Allergy (Verified 01/29/20 12:44) Sulfa (Sulfonamide Antibiotics) [SULFA] Allergy (Verified 01/29/20 12:44) - Review of Systems ROS: No change since H&P - Vital Signs and I&O's Vital Signs: Temperature 97.9 F Pulse Rate [Right Brachial] 99 Pulse Rate 94 Respiratory Rate 22 Blood Pressure [Left Arm] 112/55 Blood Pressure [Right Arm] 104/52 Blood Pressure 132/63 O2 Sat by Pulse Oximetry 98 Intake and Output: Intake & Output 02/06/20 02/07/20 02/08/20 02/09/20 11:59 11:59 11:59 11:59 Intake Total 1075 / 1075 2045 / 2045 2469 / 2469 Output Total 995 / 995 1075 / 1075 1600 / 1600 Balance 80 / 80 970 / 970 869 / 869 - Physical Exam Oriented: Normal Eyes: Normal Ear: Normal Nose: Normal Throat: Normal Respiratory: Wheezes Cardiovascular: Normal. negative: Edema : Normal Auscultation: Bowel Sounds: Normal Palpation: Normal Tenderness: Normal Skin: Decreased Turgur, Wound (SURGICAL WOUND LEFT HIP ) Musculoskeletal: Left, Hip, Swelling, Tender Psychiatric: Normal Mood Description: Calm Speech Pattern: Delayed - Laboratory and Diagnostics Result Diagrams: 02/08/20 04:46 02/08/20 04:46 Labs: 02/02/20 18:15 Blood Blood Culture - Final 02/02/20 18:15 Blood Blood Culture - Final 02/02/20 18:25 Urine,Clean Catch Urine Culture - Final Escherichia Coli Laboratory WBC 4.3 X10^3/uL (3.6-10.0) 02/08/20 04:46 RBC 3.05 X10^6/uL (3.5-5.4) L 02/08/20 04:46 Hgb 7.9 g/dL (12.0-16.0) L 02/08/20 04:46 Hct 23.9 % (36.0-47.0) L 02/08/20 04:46 MCV 78.4 fL (80.0-100.0) L 02/08/20 04:46 MCH 26.0 pg (27.0-34.0) L 02/08/20 04:46 MCHC 33.2 g/dL (33.0-35.0) 02/08/20 04:46 RDW 19.8 % (11.6-16.5) H 02/08/20 04:46 Plt Count 290 X10^3/uL (150.0-450.0) 02/08/20 04:46 Plt Count Comment Adequate (ADEQUATE) 02/08/20 04:46 MPV 8.3 fL (7.4-11.0) 02/08/20 04:46 Neut % (Auto) 62.1 % (42.0-75.0) 02/08/20 04:46 Lymph % (Auto) 26.8 % (21.0-51.0) 02/08/20 04:46 [place] % (Auto) 10.0 % (0.0-13.0) 02/08/20 04:46 Eos % (Auto) 0.3 % (0.9-2.9) L 02/08/20 04:46 Baso % (Auto) 0.8 % (0.2-1.0) 02/08/20 04:46 Neut # (Auto) 2.7 x10^3/uL (2.2-4.8) 02/08/20 04:46 Lymph # (Auto) 1.2 X10^3/uL (1.3-2.9) L 02/08/20 04:46 [place] # (Auto) 0.4 x10^3/uL (0.3-0.8) 02/08/20 04:46 Eos # (Auto) 0.0 x10^3/uL (0.0-0.2) 02/08/20 04:46 Baso # (Auto) 0.0 X10^3/uL (0.0-0.1) 02/08/20 04:46 Absolute Nucleated RBC 0.4 /100WBC 02/08/20 04:46 Total Counted 100 02/06/20 05:35 Neutrophils % (Manual) 67 % (39-76) 02/06/20 05:35 Band Neutrophils % 3 % (0-10) 01/31/20 11:02 Lymphocytes % (Manual) 32 % (13-43) 02/06/20 05:35 Monocytes % (Manual) 1 % (4-9) L 02/06/20 05:35 Eosinophils % (Manual) 2 % (0-6) 01/31/20 11:02 Metamyelocytes % 1 01/29/20 13:05 Myelocytes % 1 01/29/20 13:05 Plt Morphology Comment Normal (NORMAL) 02/08/20 04:46 RBC Morphology Abnormal (NORMAL) A 02/08/20 04:46 Hypochromasia Slight A 02/08/20 04:46 Anisocytosis Slight A 02/08/20 04:46 Microcytosis Slight A 02/02/20 18:15 Ovalocytes Present 02/08/20 04:46 Helmet Cells Present 01/29/20 13:05 Debra Cells Present 01/29/20 13:05 PT 13.8 SECONDS (11.8-14.3) 01/30/20 05:28 INR Target Range - 01/30/20 05:28 INR 1.09 (0.8-1.3) 01/30/20 05:28 APTT 31.6 SECONDS (22.9-36.5) 01/30/20 05:28 PTT Comment - 01/30/20 05:28 Sample Site Lra 02/08/20 05:59 ABG pH 7.500 (7.35-7.45) H 02/08/20 05:59 ABG pCO2 36.0 mmHg (35.0-45.0) 02/08/20 05:59 ABG pO2 72.0 mmHg (80.0-100.0) L 02/08/20 05:59 ABG HCO3 28.1 mmol/L (22-26) H 02/08/20 05:59 ABG O2 Saturation 96.0 % (90-100) 02/08/20 05:59 ABG Base Excess 4.8 mmol/L (-2.0-2.0) H 02/08/20 05:59 Prasanth Test Pos 02/08/20 05:59 A-a Gradient 33.0 mmHg 02/08/20 05:59 FiO2 21.0 02/08/20 05:59 Blood Gas Comments Pt kev well eb 02/08/20 05:59 Sodium 139 mmol/L (136-145) 02/08/20 04:46 Corrected Sodium TNP 02/08/20 04:46 Potassium 4.2 mmol/L (3.5-5.1) 02/08/20 04:46 Chloride 106 mmol/L (98-107) 02/08/20 04:46 Carbon Dioxide 26.6 mmol/L (21-32) 02/08/20 04:46 BUN 27 mg/dL (7-18) H 02/08/20 04:46 Creatinine 0.99 mg/dL (0.55-1.02) 02/08/20 04:46 Est GFR (MDRD) Af Amer > 60 (>60) 02/08/20 04:46 Est GFR (MDRD) Non-Af 57 (>60) L 02/08/20 04:46 Glucose 83 mg/dL (65-99) 02/08/20 04:46 Lactic Acid 1.0 mmol/L (0.4-2.0) 02/02/20 18:15 Calcium 8.1 mg/dL (8.5-10.1) L 02/08/20 04:46 Corrected Calcium 9.9 mg/dL (8.5-10.1) 02/08/20 04:46 Magnesium 1.5 mg/dL (1.7-2.9) L 02/05/20 04:05 Iron 13 ug/dL (50-175) L 02/01/20 04:10 TIBC 84 ug/dL (250-450) L 02/01/20 04:10 Transferrin 115 mg/dL (202-364) L 01/29/20 13:05 Ferritin 2697 ng/mL (8-252) H 02/08/20 04:46 Total Bilirubin 0.60 mg/dL (0.2-1.0) 02/08/20 04:46 AST 47 Units/L (15-37) H 02/08/20 04:46 ALT 35 Units/L (12-78) 02/08/20 04:46 Alkaline Phosphatase 80 Units/L (46-116) 02/08/20 04:46 Creatine Kinase 203 Units/L (26-192) H 01/29/20 13:05 CK-MB (CK-2) < 1.0 ng/mL (0-4.0) 01/29/20 13:05 CK/CKMB % Calc 0.5 % (<4) 01/29/20 13:05 Troponin I < 0.02 ng/mL (0-1.5) 01/29/20 13:05 C-Reactive Protein 78.30 mg/L (0-3.0) H 02/08/20 04:46 Total Protein 4.9 g/dL (6.4-8.2) L 02/08/20 04:46 Albumin 1.7 g/dL (3.4-5.0) L 02/08/20 04:46 Globulin 3.2 g/dL (2.5-4.5) 02/08/20 04:46 Albumin/Globulin Ratio 0.5 Ratio (1.1-2.1) L 02/08/20 04:46 Vitamin B12 281 pg/mL (193-986) 01/29/20 13:05 Folate 8.5 ng/mL (>8.6) L 01/29/20 13:05 Specimen Type Catherized urine 01/29/20 15:53 Urine Color Yellow (YELLOW) 01/29/20 15:53 Urine Appearance Hazy (CLEAR) 01/29/20 15:53 Urine pH 5.0 (5.0 - 8.0) 01/29/20 15:53 Ur Specific [place] 1.020 (1.000-1.030) 01/29/20 15:53 Urine Protein 2+ (NEGATIVE) 01/29/20 15:53 Urine Glucose (UA) Negative (NEGATIVE) 01/29/20 15:53 Urine Ketones 2+ (NEGATIVE) 01/29/20 15:53 Urine Occult Blood 2+ (NEGATIVE) 01/29/20 15:53 Urine Nitrite Negative (NEGATIVE) 01/29/20 15:53 Urine Bilirubin Negative (NEGATIVE) 01/29/20 15:53 Urine Urobilinogen Normal (NORMAL) 01/29/20 15:53 Ur Leukocyte Esterase Negative (NEGATIVE) 01/29/20 15:53 Urine RBC 3-5 /HPF (0-3) A 01/29/20 15:53 Urine WBC 0-2 /HPF (0-5) 01/29/20 15:53 Ur Squamous Epith Cells Many /HPF (NEGATIVE) 01/29/20 15:53 Urine Bacteria Trace /HPF (NEGATIVE) 01/29/20 15:53 Ur Culture Indicated? 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 coli UTI (urinary tract infection) Status: Acute (5) Failure to thrive Status: Acute Qualifiers: Failure to thrive age range: in adult Qualified Code(s): R62.7 - Adult failure to thrive (6) Hypertension Status: Chronic (7) COVID-19 Status: Acute Plan: ASYMPTOMATIC, CXR ON ADMISSION. ISOLATION UNIT
[2020-02-08] MEDS: SOLU-Medrol 40 MG VIAL IVP SCH ×2 (14:38→21:32)
[2020-02-08] MEDS: PROCALAMINE 3 % 1,000 ML IV SCH (14:52)
[2020-02-08] MEDS: LR 1000 ML IV 1,000 ML IV SCH (20:51)
[2020-02-09] MEDS: LR 1000 ML IV 1,000 ML IV SCH ×2 (05:09→20:33)
[2020-02-09] MEDS: SOLU-Medrol 40 MG VIAL IVP SCH ×3 (05:10→21:33)
[2020-02-09] MEDS: ZOSYN VIAL 3.375 GRAMS 3.375 G in NS 100 ML IV + SPIKE MINIBAG* 100 ML IV SCH ×3 (05:10→21:33)
[2020-02-09 05:12] LABS: ALANINE AMINOTRANSFERASE 38 Units/L (12-78); ALBUMIN 1.9 g/dL (3.4-5.0); ALKALINE PHOSPHATASE 102 Units/L (46-116); ASPARTATE AMINO TRANSFERASE 40 Units/L (15-37); BLOOD UREA NITROGEN 26 mg/dL (7-18); CALCIUM 8.4 mg/dL (8.5-10.1); CARBON DIOXIDE 25.1 mmol/L (21-32); CHLORIDE 104 mmol/L (98-107); COR CA(FOR HYPOALB) 10.1 mg/dL (8.5-10.1); COR NA(FOR HYPERGLY) 138 mmol/L (136-145); CREATININE 0.93 mg/dL (0.55-1.02); MAGNESIUM 1.7 mg/dL (1.7-2.9); SODIUM 137 mmol/L (136-145); TOTAL PROTEIN 5.4 g/dL (6.4-8.2); eGFR NON BLACK RACES > 60 (>60)
[2020-02-09 05:13] LABS: BASOPHILS % (AUTO) 0.1 % (0.2-1.0); HEMATOCRIT 26.8 % (36.0-47.0); HEMOGLOBIN 8.9 g/dL (12.0-16.0); LYMPHOCYTES # (AUTO) 0.5 X10^3/uL (1.3-2.9); LYMPHOCYTES % (AUTO) 13.2 % (21.0-51.0); MEAN CORPUSCULAR HEMOGLOBIN 25.8 pg (27.0-34.0); MEAN CORPUSCULAR HGB CONC 33.2 g/dL (33.0-35.0); MEAN CORPUSCULAR VOLUME 77.6 fL (80.0-100.0); MEAN PLATELET VOLUME 7.6 fL (7.4-11.0); MONOCYTES # (AUTO) 0.2 x10^3/uL (0.3-0.8); MONOCYTES % (AUTO) 5.2 % (0.0-13.0); NEUTROPHILS # (AUTO) 3.2 x10^3/uL (2.2-4.8); NEUTROPHILS % (AUTO) 81.5 % (42.0-75.0); PLATELET COUNT 345 X10^3/uL (150.0-450.0); RED BLOOD COUNT 3.45 X10^6/uL (3.5-5.4)
[2020-02-09 06:02] LABS: BAND NEUTROPHILS % 4 % (0-10); PLATELET MORPHOLOGY COMMENT NORMAL (NORMAL)
[2020-02-09 06:03] LABS: ANISOCYTOSIS SLIGHT; HYPOCHROMASIA SLIGHT; OVALOCYTES PRESENT
--- NOTE | 2020-02-09 06:30 | RAD ---
HISTORYSOBSTUDYCHEST, 1 [id number]/02/2020FINDINGSThe trachea is midline. The cardiac silhouette is unremarkable . The lungs are clear without focal infiltrate or effusion. The bony thorax is unremarkable.IMPRESSIONStable portable chestElectronically signed by: Vadim Hernandez (Feb 09, 2020 06:29:44)
[2020-02-09] MEDS ORDERED: REMDESIVIR (INVESTIGATIONAL DRUG GS-5734) IV ONE (09:00)
[2020-02-09] MEDS: FERROUS GLUCONATE PO SCH ×2 (09:00→20:33)
[2020-02-09] MEDS: PROCARDIA XL 24-hr PO SCH (09:00)
[2020-02-09] MEDS: PROTONIX INJ 40 MG VIAL IVP SCH ×2 (09:01→20:34)
[2020-02-09] MEDS: XARELTO PO SCH (09:01)
[2020-02-09] MEDS: REMDESIVIR **DO NOT USE THIS ITEM# ** 100 MG in NS 250 ML IV 250 ML IV SCH (09:01)
[2020-02-09] MEDS ORDERED: MAGNESIUM SULFATE 1 GRAM/100 mL PREMIX 1 G/100 ML BAG IV ONE (11:21)
[2020-02-09] MEDS: MAGNESIUM SULFATE 1 GRAM/100 mL PREMIX 1 GM/100 ML BAG IV PRN ×2 (13:00→14:10)
[2020-02-09] MEDS: NORCO 5/325 MG TAB PO PRN (20:34)
[2020-02-10 05:24] LABS: BASOPHILS % (AUTO) 0 % (0.2-1.0); HEMATOCRIT 26.1 % (36.0-47.0); HEMOGLOBIN 8.6 g/dL (12.0-16.0); LYMPHOCYTES # (AUTO) 0.7 X10^3/uL (1.3-2.9); LYMPHOCYTES % (AUTO) 14.1 % (21.0-51.0); MEAN CORPUSCULAR HEMOGLOBIN 25.6 pg (27.0-34.0); MEAN CORPUSCULAR VOLUME 77.7 fL (80.0-100.0); MEAN PLATELET VOLUME 8.1 fL (7.4-11.0); MONOCYTES # (AUTO) 0.3 x10^3/uL (0.3-0.8); MONOCYTES % (AUTO) 5.2 % (0.0-13.0); NEUTROPHILS # (AUTO) 3.9 x10^3/uL (2.2-4.8); NEUTROPHILS % (AUTO) 80.7 % (42.0-75.0); PLATELET COUNT 356 X10^3/uL (150.0-450.0); RED BLOOD COUNT 3.36 X10^6/uL (3.5-5.4); RED CELL DISTRIBUTION WIDTH 19.9 % (11.6-16.5); WHITE BLOOD COUNT 4.9 X10^3/uL (3.6-10.0)
[2020-02-10 05:39] LABS: ALANINE AMINOTRANSFERASE 38 Units/L (12-78); ALBUMIN 1.9 g/dL (3.4-5.0); ALKALINE PHOSPHATASE 118 Units/L (46-116); ASPARTATE AMINO TRANSFERASE 37 Units/L (15-37); BLOOD UREA NITROGEN 28 mg/dL (7-18); CALCIUM 8.2 mg/dL (8.5-10.1); CARBON DIOXIDE 25.9 mmol/L (21-32); CHLORIDE 105 mmol/L (98-107); COR CA(FOR HYPOALB) 9.9 mg/dL (8.5-10.1); COR NA(FOR HYPERGLY) 137 mmol/L (136-145); MAGNESIUM 1.8 mg/dL (1.7-2.9); SODIUM 136 mmol/L (136-145); TOTAL PROTEIN 5.2 g/dL (6.4-8.2); eGFR NON BLACK RACES > 60 (>60)
[2020-02-10] MEDS: SOLU-Medrol 40 MG VIAL IVP SCH ×3 (05:48→21:40)
[2020-02-10] MEDS: ZOSYN VIAL 3.375 GRAMS 3.375 G in NS 100 ML IV + SPIKE MINIBAG* 100 ML IV SCH ×3 (05:49→21:40)
[2020-02-10] MEDS: LR 1000 ML IV 1,000 ML IV SCH ×2 (06:03→21:39)
[2020-02-10 06:09] LABS: PLATELET MORPHOLOGY COMMENT NORMAL (NORMAL)
[2020-02-10 06:10] LABS: ANISOCYTOSIS SLIGHT; BURR CELLS PRESENT; HYPOCHROMASIA SLIGHT; OVALOCYTES PRESENT
[2020-02-10] MEDS: MAGNESIUM SULFATE 1 GRAM/100 mL PREMIX 1 GM/100 ML BAG IV PRN ×2 (06:21→23:14)
[2020-02-10] MEDS ORDERED: REMDESIVIR (INVESTIGATIONAL DRUG GS-5734) IV ONE (09:00)
--- NOTE | 2020-02-10 09:17 | RAD ---
HISTORYShortness of breathSTUDYChest AP [id number]/03/2020FINDINGSThe heart is within normal limits in size. The angela are normal. The lung zaragoza are clear. The left hemidiaphragm is elevated. No pleural effusions are identified. Bony thorax is unremarkable.IMPRESSIONNo significant abnormality identifiedElectronically signed by: ALVARO JOSUE (Feb 10, 2020 09:16:20)
[2020-02-10] MEDS: PROCARDIA XL 24-hr PO SCH (09:36)
[2020-02-10] MEDS: FERROUS GLUCONATE PO SCH ×2 (09:36→21:40)
[2020-02-10] MEDS: REMDESIVIR **DO NOT USE THIS ITEM# ** 100 MG in NS 250 ML IV 250 ML IV SCH (09:36)
[2020-02-10] MEDS: PROTONIX INJ 40 MG VIAL IVP SCH ×2 (09:37→21:40)
[2020-02-10] MEDS: XARELTO PO SCH (09:37)
[2020-02-10] MEDS: PATIENT'S HOME MEDICATION PO SCH (17:48)
--- NOTE | 2020-02-10 17:54 | PCM.PROG ---
Progress Note - Progress Note for Day of Date of Exam: 02/10/20 - Subjective Subjective: Mrs. Durham is an 84-year-old white female admitted after a left hip fracture with repair approximately 10 days ago. She was also noted to be COVID- 19 positive on admission and became symptomatic towards the end of last week. We started her on Remdesivir. Also, she was having some protein-calorie deficiency, some anorexia. She had been treated for dysphagia with PPI therapy two times a day. We started her on Procal and she has tolerated this well. This weekend, the patients CRP did improve with Remdesivir. Her chest x-ray was clear throughout today. White count is stable at 4 with her hemoglobin also being stable at 8.9 and she has suffered some anemia during this stay. The p atient was up in the chair and had a good strong voice this morning. She looks the best that she has since admission. Her blood pressure has been under control, it was 130/65 and she has been afebrile. I do think that the patient is benefiting from physical therapy she is receiving, but she is going to require additional therapy. We have discussed with Case Management if isolation bed becomes available at a rehab facility, the patient is medically stable at this point, as long as she would be in isolation. If not, the patient will be at 14 days this Sunday and if it is necessary for the facility to accept her, we will reswab her. The patient has been on Xarelto for anticoagulant therapy for deep vein thrombosis following her fracture repair. WE WILL CONTINUE WITH CURRENT PLAN OF CARE TODAY. OTHERWISE, WE WILL FOLLOW UP WITH AM LABS AND CHEST XRAY AND CONTINUE TO MONITOR. - Past Medical Family Social History Past Med/Fam/Surg Hx: No changes since H&P Allergies: Allergies codeine Allergy (Verified 01/29/20 12:44) Sulfa (Sulfonamide Antibiotics) [SULFA] Allergy (Verified 01/29/20 12:44) - Review of Systems ROS: No change since H&P - Vital Signs and I&O's Vital Signs: Temperature 98.6 F Pulse Rate [Right Brachial] 96 Pulse Rate 76 Respiratory Rate 20 Blood Pressure [Left Arm] 143/67 Blood Pressure [Right Arm] 129/67 Blood Pressure 132/63 O2 Sat by Pulse Oximetry 93 Intake and Output: Intake & Output 08/0202/09/20 02/10/20 02/11/20 11:59 11:59 11:59 11:59 Intake Total 2469 / 2469 2569 / 2569 2830 / 2830 1150 / 1150 Output Total 1600 / 1600 2800 / 2800 2800 / 2800 800 / 800 Balance 869 / 869 -231 / -231 30 / 30 350 / 350 - Physical Exam Oriented: Normal Eyes: Normal Ear: Normal Nose: Normal Throat: Normal Respiratory: Wheezes Cardiovascular: Normal. negative: Edema : Normal Auscultation: Bowel Sounds: Normal Tenderness: Normal Skin: Decreased Turgur, Wound (SURGICAL WOUND LEFT HIP ) Musculoskeletal: Left, Hip, Swelling, Tender Psychiatric: Normal Mood Description: Calm Speech Pattern: Delayed - Laboratory and Diagnostics Result Diagrams: 02/10/20 05:00 02/10/20 05:00 Labs: 02/02/20 18:15 Blood Blood Culture - Final 02/02/20 18:15 Blood Blood Culture - Final 02/02/20 18:25 Urine,Clean Catch Urine Culture - Final Escherichia Coli Laboratory WBC 4.9 X10^3/uL (3.6-10.0) 02/10/20 05:00 RBC 3.36 X10^6/uL (3.5-5.4) L 02/10/20 05:00 Hgb 8.6 g/dL (12.0-16.0) L 02/10/20 05:00 Hct 26.1 % (36.0-47.0) L 02/10/20 05:00 MCV 77.7 fL (80.0-100.0) L 02/10/20 05:00 MCH 25.6 pg (27.0-34.0) L 02/10/20 05:00 MCHC 33.0 g/dL (33.0-35.0) 02/10/20 05:00 RDW 19.9 % (11.6-16.5) H 02/10/20 05:00 Plt Count 356 X10^3/uL (150.0-450.0) 02/10/20 05:00 Plt Count Comment Adequate (ADEQUATE) 02/10/20 05:00 MPV 8.1 fL (7.4-11.0) 02/10/20 05:00 Neut % (Auto) 80.7 % (42.0-75.0) H 02/10/20 05:00 Lymph % (Auto) 14.1 % (21.0-51.0) L 02/10/20 05:00 [place] % (Auto) 5.2 % (0.0-13.0) 02/10/20 05:00 Eos % (Auto) 0.0 % (0.9-2.9) L 02/10/20 05:00 Baso % (Auto) 0 % (0.2-1.0) L 02/10/20 05:00 Neut # (Auto) 3.9 x10^3/uL (2.2-4.8) 02/10/20 05:00 Lymph # (Auto) 0.7 X10^3/uL (1.3-2.9) L 02/10/20 05:00 [place] # (Auto) 0.3 x10^3/uL (0.3-0.8) 02/10/20 05:00 Eos # (Auto) 0.0 x10^3/uL (0.0-0.2) 02/10/20 05:00 Baso # (Auto) 0.0 X10^3/uL (0.0-0.1) 02/10/20 05:00 Absolute Nucleated RBC 0.4 /100WBC 02/10/20 05:00 Total Counted 100 02/09/20 03:40 Neutrophils % (Manual) 80 % (39-76) H 02/09/20 03:40 Band Neutrophils % 4 % (0-10) 02/09/20 03:40 Lymphocytes % (Manual) 11 % (13-43) L 02/09/20 03:40 Monocytes % (Manual) 5 % (4-9) 02/09/20 03:40 Eosinophils % (Manual) 2 % (0-6) 01/31/20 11:02 Metamyelocytes % 1 01/29/20 13:05 Myelocytes % 1 01/29/20 13:05 Plt Morphology Comment Normal (NORMAL) 02/10/20 05:00 RBC Morphology Abnormal (NORMAL) A 02/10/20 05:00 Hypochromasia Slight A 02/10/20 05:00 Anisocytosis Slight A 02/10/20 05:00 Microcytosis Slight A 02/02/20 18:15 Ovalocytes Present 02/10/20 05:00 Helmet Cells Present 01/29/20 13:05 Debra Cells Present 02/10/20 05:00 PT 13.8 SECONDS (11.8-14.3) 01/30/20 05:28 INR Target Range - 01/30/20 05:28 INR 1.09 (0.8-1.3) 01/30/20 05:28 APTT 31.6 SECONDS (22.9-36.5) 01/30/20 05:28 PTT Comment - 01/30/20 05:28 Sample Site Lra 02/08/20 05:59 ABG pH 7.500 (7.35-7.45) H 02/08/20 05:59 ABG pCO2 36.0 mmHg (35.0-45.0) 02/08/20 05:59 ABG pO2 72.0 mmHg (80.0-100.0) L 02/08/20 05:59 ABG HCO3 28.1 mmol/L (22-26) H 02/08/20 05:59 ABG O2 Saturation 96.0 % (90-100) 02/08/20 05:59 ABG Base Excess 4.8 mmol/L (-2.0-2.0) H 02/08/20 05:59 Prasanth Test Pos 02/08/20 05:59 A-a Gradient 33.0 mmHg 02/08/20 05:59 FiO2 21.0 02/08/20 05:59 Blood Gas Comments Pt kev well eb 02/08/20 05:59 Sodium 136 mmol/L (136-145) 02/10/20 05:00 Corrected Sodium 137 mmol/L (136-145) 02/10/20 05:00 Potassium 4.7 mmol/L (3.5-5.1) 02/10/20 05:00 Chloride 105 mmol/L (98-107) 02/10/20 05:00 Carbon Dioxide 25.9 mmol/L (21-32) 02/10/20 05:00 BUN 28 mg/dL (7-18) H 02/10/20 05:00 Creatinine 0.80 mg/dL (0.55-1.02) 02/10/20 05:00 Est GFR (MDRD) Af Amer > 60 (>60) 02/10/20 05:00 Est GFR (MDRD) Non-Af > 60 (>60) 02/10/20 05:00 Glucose 124 mg/dL (65-99) H 02/10/20 05:00 Lactic Acid 1.0 mmol/L (0.4-2.0) 02/02/20 18:15 Calcium 8.2 mg/dL (8.5-10.1) L 02/10/20 05:00 Corrected Calcium 9.9 mg/dL (8.5-10.1) 02/10/20 05:00 Magnesium 1.8 mg/dL (1.7-2.9) 02/10/20 05:00 Iron 13 ug/dL (50-175) L 02/01/20 04:10 TIBC 84 ug/dL (250-450) L 02/01/20 04:10 Transferrin 115 mg/dL (202-364) L 01/29/20 13:05 Ferritin 2403 ng/mL (8-252) H 02/10/20 05:00 Total Bilirubin 0.50 mg/dL (0.2-1.0) 02/10/20 05:00 AST 37 Units/L (15-37) 02/10/20 05:00 ALT 38 Units/L (12-78) 02/10/20 05:00 Alkaline Phosphatase 118 Units/L (46-116) H 02/10/20 05:00 Creatine Kinase 203 Units/L (26-192) H 01/29/20 13:05 CK-MB (CK-2) < 1.0 ng/mL (0-4.0) 01/29/20 13:05 CK/CKMB % Calc 0.5 % (<4) 01/29/20 13:05 Troponin I < 0.02 ng/mL (0-1.5) 01/29/20 13:05 C-Reactive Protein 37.10 mg/L (0-3.0) H 02/10/20 05:00 Total Protein 5.2 g/dL (6.4-8.2) L 02/10/20 05:00 Albumin 1.9 g/dL (3.4-5.0) L 02/10/20 05:00 Globulin 3.3 g/dL (2.5-4.5) 02/10/20 05:00 Albumin/Globulin Ratio 0.6 Ratio (1.1-2.1) L 02/10/20 05:00 Vitamin B12 281 pg/mL (193-986) 01/29/20 13:05 Folate 8.5 ng/mL (>8.6) L 01/29/20 13:05 Specimen Type Catherized urine 01/29/20 15:53 Urine Color Yellow (YELLOW) 01/29/20 15:53 Urine Appearance Hazy (CLEAR) 01/29/20 15:53 Urine pH 5.0 (5.0 - 8.0) 01/29/20 15:53 Ur Specific [place] 1.020 (1.000-1.030) 01/29/20 15:53 Urine Protein 2+ (NEGATIVE) 01/29/20 15:53 Urine Glucose (UA) Negative (NEGATIVE) 01/29/20 15:53 Urine Ketones 2+ (NEGATIVE) 01/29/20 15:53 Urine Occult Blood 2+ (NEGATIVE) 01/29/20 15:53 Urine Nitrite Negative (NEGATIVE) 01/29/20 15:53 Urine Bilirubin Negative (NEGATIVE) 01/29/20 15:53 Urine Urobilinogen Normal (NORMAL) 01/29/20 15:53 Ur Leukocyte Esterase Negative (NEGATIVE) 01/29/20 15:53 Urine RBC 3-5 /HPF (0-3) A 01/29/20 15:53 Urine WBC 0-2 /HPF (0-5) 01/29/20 15:53 Ur Squamous Epith Cells Many /HPF (NEGATIVE) 01/29/20 15:53 Urine Bacteria Trace /HPF (NEGATIVE) 01/29/20 15:53 Ur Culture Indicated? No/not indicated 01/29/20 15:53 Stool Description 15g green unformed 02/03/20 10:45 Stl Occult Blood (IFOB) Negative (NEGATIVE) 02/03/20 10:45 SARS-CoV-2 (PCR) Positive (NEGATIVE) A 01/29/20 14:37 Blood Type O POSITIVE 01/31/20 17:40 Antibody Screen Negative 01/31/20 17:40 Crossmatch See Detail 01/31/20 17:40 - Plan (1) Closed fracture of left hip Status: Acute Qualifiers: Encounter type: initial encounter Qualified Code(s): S72.002A - Fracture of unspecified part of neck of left femur, initial encounter for closed fracture Plan: BEDREST, [place] CATH, BP AND CARDIAC MONITORING. CONTINUE REHAB THERAPY, AM LABS. PRN SUPPLEMENTAL O2. IV HYDRATION, ORAL NUTRITION. IV ATBX THERAPY (2) Hypertension Status: Chronic (3) COVID-19 Status: Acute Plan: ASYMPTOMATIC, CXR ON ADMISSION. ISOLATION UNIT (4) Osteoarthritis Status: Chronic Qualifiers: Osteoarthritis location: multiple joints Osteoarthritis type: primary
[2020-02-10] MEDS: PROCALAMINE 3 % 1,000 ML IV SCH (19:54)
[2020-02-11 05:15] LABS: BASOPHILS % (AUTO) 0.4 % (0.2-1.0); HEMOGLOBIN 9.3 g/dL (12.0-16.0); LYMPHOCYTES # (AUTO) 0.8 X10^3/uL (1.3-2.9); LYMPHOCYTES % (AUTO) 14.1 % (21.0-51.0); MEAN CORPUSCULAR HEMOGLOBIN 25.1 pg (27.0-34.0); MEAN CORPUSCULAR HGB CONC 32.2 g/dL (33.0-35.0); MEAN PLATELET VOLUME 8.2 fL (7.4-11.0); MONOCYTES # (AUTO) 0.4 x10^3/uL (0.3-0.8); MONOCYTES % (AUTO) 6.9 % (0.0-13.0); NEUTROPHILS # (AUTO) 4.4 x10^3/uL (2.2-4.8); NEUTROPHILS % (AUTO) 78.6 % (42.0-75.0); PLATELET COUNT 445 X10^3/uL (150.0-450.0); RED BLOOD COUNT 3.72 X10^6/uL (3.5-5.4); RED CELL DISTRIBUTION WIDTH 19.9 % (11.6-16.5); WHITE BLOOD COUNT 5.7 X10^3/uL (3.6-10.0)
[2020-02-11] MEDS: SOLU-Medrol 40 MG VIAL IVP SCH ×3 (05:25→21:38)
[2020-02-11] MEDS: ZOSYN VIAL 3.375 GRAMS 3.375 G in NS 100 ML IV + SPIKE MINIBAG* 100 ML IV SCH ×3 (05:26→21:38)
[2020-02-11 05:32] LABS: ALANINE AMINOTRANSFERASE 44 Units/L (12-78); ALBUMIN 2.2 g/dL (3.4-5.0); ALKALINE PHOSPHATASE 150 Units/L (46-116); ASPARTATE AMINO TRANSFERASE 39 Units/L (15-37); BLOOD UREA NITROGEN 29 mg/dL (7-18); CALCIUM 8.6 mg/dL (8.5-10.1); CARBON DIOXIDE 26.9 mmol/L (21-32); CHLORIDE 103 mmol/L (98-107); COR NA(FOR HYPERGLY) 136 mmol/L (136-145); CREATININE 0.88 mg/dL (0.55-1.02); SODIUM 136 mmol/L (136-145); TOTAL PROTEIN 5.7 g/dL (6.4-8.2); eGFR NON BLACK RACES > 60 (>60)
[2020-02-11 05:58] LABS: PLATELET MORPHOLOGY COMMENT NORMAL (NORMAL)
[2020-02-11 05:59] LABS: ANISOCYTOSIS SLIGHT; HYPOCHROMASIA SLIGHT; OVALOCYTES PRESENT
[2020-02-11 06:00] LABS: BURR CELLS PRESENT
--- NOTE | 2020-02-11 06:18 | RAD ---
HISTORYSOBSTUDYCHEST, 1 VIEWCOMPARISON[One day prior]TECHNIQUE[AP view of the chest.]FINDINGS[The cardiac and mediastinal contours are within normal limits. The lungs are clear without focal consolidation or segmental collapse. No pleural effusion or pneumothorax.]IMPRESSION[No acute pulmonary process.]Electronically signed by: Tre Tabor (Feb 11, 2020 06:18:04)
[2020-02-11] MEDS: FERROUS GLUCONATE PO SCH ×2 (10:49→21:37)
[2020-02-11] MEDS: PROTONIX INJ 40 MG VIAL IVP SCH ×2 (10:50→21:37)
[2020-02-11] MEDS: PROCARDIA XL 24-hr PO SCH (10:50)
[2020-02-11] MEDS: XARELTO PO SCH (10:50)
[2020-02-11] MEDS: LR 1000 ML IV 1,000 ML IV SCH ×2 (10:51→21:38)
[2020-02-11] MEDS: PATIENT'S HOME MEDICATION PO SCH (10:51)
--- NOTE | 2020-02-11 17:44 | CT ---
HISTORYSUSPECTED LUNG NODULESTUDYCHEST WITH CONCOMPARISONNone availableTECHNIQUEMultiple axial images of the chest were obtained from the thoracic inlet to the upper abdomen after the administration of IV contrast. Dose reduction techniques including Automated Exposure Control (AEC) and adjustment of mA and kV were utilized.FINDINGS[The thyroid gland is normal. Heart size is normal without pericardial effusion. Thoracic aorta is normal in caliber and configuration. Scattered calcified atherosclerotic disease. The pulmonary arteries are normal in caliber and central opacification. No enlarged mediastinal or hilar lymphadenopathy. The esophagus is unremarkable. Lungs demonstrate mild chronic interstitial coarsening; however, peripheral ground-glass opacity within left upper lobe is suspicious for developing infiltrate. Mild bronchiectasis/peribronchial thickening within the lower lobes. Dependent atelectasis and scarring within the right lower lobe. Tiny left-sided pleural effusion. No pneumothorax.Imaging of the upper abdomen demonstrates no acute inflammatory process.Review of bone windows demonstrates severe kyphosis of the cervical thoracic junction. Indeterminate rounded lucent lesions within the T4 through T11 vertebral bodies. Chronic compression fracture of the L2 vertebral body with mild retropulsion of the posterior vertebral wall into the spinal canal.IMPRESSIONGround-glass opacities within the periphery of the left upper lobe suspicious for developing infiltrate/pneumonia.Small left-sided pleural effusion.Multiple round lucent lesions within the anterior T4 through T11 vertebral bodies are indeterminate, these may represent hemangiomas however treated metastasis are also consideration in the appropriate clinical setting.Chronic L2 compression fracture deformity with mild retropulsion of the posterior vertebral wall into the spinal canal causing mild spinal canal stenosis.Electronically signed by: ANGELITO SANTOS (Feb 11, 2020 17:43:50)
[2020-02-11] MEDS: NORCO 5/325 MG TAB PO PRN (21:38)
[2020-02-12] MEDS: ZOSYN VIAL 3.375 GRAMS 3.375 G in NS 100 ML IV + SPIKE MINIBAG* 100 ML IV SCH ×2 (05:08→14:04)
[2020-02-12] MEDS: SOLU-Medrol 40 MG VIAL IVP SCH ×3 (05:08→21:43)
[2020-02-12] MEDS: LR 1000 ML IV 1,000 ML IV SCH ×2 (05:09→16:20)
[2020-02-12 05:51] LABS: ALANINE AMINOTRANSFERASE 42 Units/L (12-78); ALBUMIN 2.4 g/dL (3.4-5.0); ALKALINE PHOSPHATASE 207 Units/L (46-116); ASPARTATE AMINO TRANSFERASE 33 Units/L (15-37); BLOOD UREA NITROGEN 29 mg/dL (7-18); CALCIUM 8.6 mg/dL (8.5-10.1); CARBON DIOXIDE 25.8 mmol/L (21-32); CHLORIDE 101 mmol/L (98-107); COR CA(FOR HYPOALB) 9.9 mg/dL (8.5-10.1); CREATININE 0.98 mg/dL (0.55-1.02); SODIUM 134 mmol/L (136-145); TOTAL PROTEIN 5.9 g/dL (6.4-8.2); eGFR NON BLACK RACES 58 (>60)
[2020-02-12 06:03] LABS: BASOPHILS % (AUTO) 0.2 % (0.2-1.0); EOSINOPHILS % (AUTO) 0.2 % (0.9-2.9); HEMATOCRIT 31.6 % (36.0-47.0); HEMOGLOBIN 10.1 g/dL (12.0-16.0); LYMPHOCYTES # (AUTO) 1.7 X10^3/uL (1.3-2.9); MEAN CORPUSCULAR HEMOGLOBIN 25.1 pg (27.0-34.0); MEAN CORPUSCULAR HGB CONC 31.9 g/dL (33.0-35.0); MEAN CORPUSCULAR VOLUME 78.6 fL (80.0-100.0); MONOCYTES # (AUTO) 0.6 x10^3/uL (0.3-0.8); MONOCYTES % (AUTO) 10.4 % (0.0-13.0); NEUTROPHILS # (AUTO) 3.8 x10^3/uL (2.2-4.8); NEUTROPHILS % (AUTO) 61.2 % (42.0-75.0); PLATELET COUNT 490 X10^3/uL (150.0-450.0); RED BLOOD COUNT 4.02 X10^6/uL (3.5-5.4); RED CELL DISTRIBUTION WIDTH 20.3 % (11.6-16.5); WHITE BLOOD COUNT 6.1 X10^3/uL (3.6-10.0)
[2020-02-12 06:17] LABS: PLATELET MORPHOLOGY COMMENT NORMAL (NORMAL)
[2020-02-12 06:18] LABS: ANISOCYTOSIS 1+; HYPOCHROMASIA SLIGHT
[2020-02-12 06:19] LABS: BURR CELLS PRESENT; OVALOCYTES PRESENT
--- NOTE | 2020-02-12 06:27 | RAD ---
HISTORYSOB, bone cancerSTUDYCHEST, 1 VIEWCOMPARISONX-ray 520FINDINGSPersistent prominence of the aorta is likely due to tortuosity given appearance on recent CT. Heart is likely normal in size on this AP radiograph. Probable COPD changes. No pneumothorax, focal infiltrate, or pleural effusion is seen.IMPRESSIONCOPD is suspected. Mild ground-glass density seen on prior CT in the left upper lobe are not seen on this study.Electronically signed by: Jermain Sargent (Feb 12, 2020 06:26:54)
[2020-02-12] MEDS: PROTONIX INJ 40 MG VIAL IVP SCH ×2 (08:05→21:42)
[2020-02-12] MEDS: PROCARDIA XL 24-hr PO SCH (08:05)
[2020-02-12] MEDS: XARELTO PO SCH (08:06)
[2020-02-12] MEDS: FERROUS GLUCONATE PO SCH ×2 (08:06→21:43)
[2020-02-12] MEDS: XOPENEX 1.25 MG/3 ML NEBULE NEB SCH ×2 (11:30→16:23)
[2020-02-12] MEDS: PATIENT'S HOME MEDICATION PO SCH (16:19)
[2020-02-13] MEDS: XOPENEX 1.25 MG/3 ML NEBULE NEB SCH ×2 (00:11→05:37)
[2020-02-13 05:44] LABS: ALANINE AMINOTRANSFERASE 38 Units/L (12-78); ALBUMIN 2.2 g/dL (3.4-5.0); ALKALINE PHOSPHATASE 215 Units/L (46-116); ASPARTATE AMINO TRANSFERASE 21 Units/L (15-37); BLOOD UREA NITROGEN 29 mg/dL (7-18); CALCIUM 8.3 mg/dL (8.5-10.1); CARBON DIOXIDE 26.9 mmol/L (21-32); CHLORIDE 105 mmol/L (98-107); COR CA(FOR HYPOALB) 9.7 mg/dL (8.5-10.1); COR NA(FOR HYPERGLY) 139 mmol/L (136-145); CREATININE 0.97 mg/dL (0.55-1.02); SODIUM 138 mmol/L (136-145); TOTAL PROTEIN 5.5 g/dL (6.4-8.2); eGFR NON BLACK RACES 58 (>60)
[2020-02-13 05:48] LABS: BASOPHILS % (AUTO) 0.5 % (0.2-1.0); HEMATOCRIT 29.3 % (36.0-47.0); HEMOGLOBIN 9.7 g/dL (12.0-16.0); LYMPHOCYTES # (AUTO) 1.2 X10^3/uL (1.3-2.9); LYMPHOCYTES % (AUTO) 23.3 % (21.0-51.0); MEAN CORPUSCULAR HEMOGLOBIN 25.7 pg (27.0-34.0); MEAN CORPUSCULAR HGB CONC 33.1 g/dL (33.0-35.0); MEAN CORPUSCULAR VOLUME 77.7 fL (80.0-100.0); MEAN PLATELET VOLUME 6.9 fL (7.4-11.0); MONOCYTES # (AUTO) 0.3 x10^3/uL (0.3-0.8); MONOCYTES % (AUTO) 5.9 % (0.0-13.0); NEUTROPHILS # (AUTO) 3.7 x10^3/uL (2.2-4.8); NEUTROPHILS % (AUTO) 70.3 % (42.0-75.0); PLATELET COUNT 369 X10^3/uL (150.0-450.0); RED BLOOD COUNT 3.77 X10^6/uL (3.5-5.4); RED CELL DISTRIBUTION WIDTH 20.6 % (11.6-16.5); WHITE BLOOD COUNT 5.3 X10^3/uL (3.6-10.0)
[2020-02-13] MEDS: SOLU-Medrol 40 MG VIAL IVP SCH ×2 (06:11→15:44)
[2020-02-13 06:25] LABS: ANISOCYTOSIS 1+; HYPOCHROMASIA SLIGHT; PLATELET MORPHOLOGY COMMENT NORMAL (NORMAL)
[2020-02-13] MEDS: LR 1000 ML IV 1,000 ML IV SCH ×2 (08:22→13:53)
[2020-02-13] MEDS: PROCARDIA XL 24-hr PO SCH (09:08)
[2020-02-13] MEDS: XARELTO PO SCH (09:09)
[2020-02-13] MEDS: PROTONIX INJ 40 MG VIAL IVP SCH (09:10)
[2020-02-13] MEDS: FERROUS GLUCONATE PO SCH (09:10)
[2020-02-13] MEDS: PATIENT'S HOME MEDICATION PO SCH (09:13)
[2020-02-13 13:53] VITALS: BP 133/69
--- NOTE | 2020-02-13 15:38 | PCM.PROG ---
Progress Note - Progress Note for Day of Date of Exam: 02/13/20 - Subjective Subjective: The patient is an 84-year-old black female who was admitted after an acute left hip fracture. This Sunday will be 14 days out. She is status post a left hip fracture repair per Dr. Stout. On admission, the patient was noted to be COVID-19 positive and during the stay she did become symptomatic. We have treated her for pneumonia as well as acute viral infection with Remdesivir. She had been on respiratory therapy and supplemental oxygen. The patient also had some malnutrition and anorexia which has resolved at this time. We had started her on ProCal and by Sunday she was significantly improved. She has been cooperating much better with physical therapy. She is awake and alert at this time. Her blood pressure has been stable at 115/58 and this morning she has been afebrile. The patient has been receiving aggressive physical therapy as tolerated. She does need additional physical therapy. We had discussed possibly swingbed or longterm placement, whatever was available due to her being COVID-19 positive and again she is in no respiratory distress at this time. Her hemoglobin has been stable with an improved white blood cell count. She has been afebrile. - Past Medical Family Social History Past Med/Fam/Surg Hx: No changes since H&P Allergies: Allergies codeine Allergy (Verified 01/29/20 12:44) Sulfa (Sulfonamide Antibiotics) [SULFA] Allergy (Verified 01/29/20 12:44) - Review of Systems ROS: No change since H&P - Vital Signs and I&O's Vital Signs: Temperature 98.7 F Pulse Rate [Right Brachial] 93 Pulse Rate 93 Respiratory Rate 18 Blood Pressure [Left Arm] 133/69 Blood Pressure [Right Arm] 148/69 Blood Pressure 132/63 O2 Sat by Pulse Oximetry 96 Intake and Output: Intake & Output 02/11/20 02/12/20 02/13/20 02/14/20 11:59 11:59 11:59 11:59 Intake Total 2800 / 2800 3115 / 3115 1110 / 1110 Output Total 2400 / 2400 2700 / 2700 3000 / 3000 Balance 400 / 400 415 / 415 -1890 / -1890 - Physical Exam Oriented: Normal Eyes: Normal Ear: Normal Nose: Normal Throat: Normal Respiratory: Wheezes Cardiovascular: Normal. negative: Edema : Normal Auscultation: Bowel Sounds: Normal Tenderness: Normal Skin: Decreased Turgur, Wound (SURGICAL WOUND LEFT HIP ) Musculoskeletal: Left, Hip, Swelling, Tender Psychiatric: Normal Mood Description: Calm Speech Pattern: Delayed - Laboratory and Diagnostics Result Diagrams: 02/13/20 04:16 02/13/20 04:16 Labs: 02/02/20 18:15 Blood Blood Culture - Final 02/02/20 18:15 Blood Blood Culture - Final 02/02/20 18:25 Urine,Clean Catch Urine Culture - Final Escherichia Coli Laboratory WBC 5.3 X10^3/uL (3.6-10.0) 02/13/20 04:16 RBC 3.77 X10^6/uL (3.5-5.4) 02/13/20 04:16 Hgb 9.7 g/dL (12.0-16.0) L 02/13/20 04:16 Hct 29.3 % (36.0-47.0) L 02/13/20 04:16 MCV 77.7 fL (80.0-100.0) L 02/13/20 04:16 MCH 25.7 pg (27.0-34.0) L 02/13/20 04:16 MCHC 33.1 g/dL (33.0-35.0) 02/13/20 04:16 RDW 20.6 % (11.6-16.5) H 02/13/20 04:16 Plt Count 369 X10^3/uL (150.0-450.0) 02/13/20 04:16 Plt Count Comment Adequate (ADEQUATE) 02/13/20 04:16 MPV 6.9 fL (7.4-11.0) L 02/13/20 04:16 Neut % (Auto) 70.3 % (42.0-75.0) 02/13/20 04:16 Lymph % (Auto) 23.3 % (21.0-51.0) 02/13/20 04:16 [place] % (Auto) 5.9 % (0.0-13.0) 02/13/20 04:16 Eos % (Auto) 0.0 % (0.9-2.9) L 02/13/20 04:16 Baso % (Auto) 0.5 % (0.2-1.0) 02/13/20 04:16 Neut # (Auto) 3.7 x10^3/uL (2.2-4.8) 02/13/20 04:16 Lymph # (Auto) 1.2 X10^3/uL (1.3-2.9) L 02/13/20 04:16 [place] # (Auto) 0.3 x10^3/uL (0.3-0.8) 02/13/20 04:16 Eos # (Auto) 0.0 x10^3/uL (0.0-0.2) 02/13/20 04:16 Baso # (Auto) 0.0 X10^3/uL (0.0-0.1) 02/13/20 04:16 Absolute Nucleated RBC 0.6 /100WBC 02/13/20 04:16 Total Counted 100 02/13/20 04:16 Neutrophils % (Manual) 83 % (39-76) H 02/13/20 04:16 Band Neutrophils % 4 % (0-10) 02/09/20 03:40 Lymphocytes % (Manual) 13 % (13-43) 02/13/20 04:16 Monocytes % (Manual) 4 % (4-9) 02/13/20 04:16 Eosinophils % (Manual) 2 % (0-6) 01/31/20 11:02 Metamyelocytes % 1 01/29/20 13:05 Myelocytes % 1 01/29/20 13:05 Plt Morphology Comment Normal (NORMAL) 02/13/20 04:16 RBC Morphology Abnormal (NORMAL) A 02/13/20 04:16 Hypochromasia Slight A 02/13/20 04:16 Anisocytosis 1+ A 02/13/20 04:16 Microcytosis Slight A 02/02/20 18:15 Ovalocytes Present 02/12/20 05:07 Helmet Cells Present 01/29/20 13:05 [place] Cells Present 02/12/20 05:07 PT 13.8 SECONDS (11.8-14.3) 01/30/20 05:28 INR Target Range - 01/30/20 05:28 INR 1.09 (0.8-1.3) 01/30/20 05:28 APTT 31.6 SECONDS (22.9-36.5) 01/30/20 05:28 PTT Comment - 01/30/20 05:28 Sample Site Lra 02/08/20 05:59 ABG pH 7.500 (7.35-7.45) H 02/08/20 05:59 ABG pCO2 36.0 mmHg (35.0-45.0) 02/08/20 05:59 ABG pO2 72.0 mmHg (80.0-100.0) L 02/08/20 05:59 ABG HCO3 28.1 mmol/L (22-26) H 02/08/20 05:59 ABG O2 Saturation 96.0 % (90-100) 02/08/20 05:59 ABG Base Excess 4.8 mmol/L (-2.0-2.0) H 02/08/20 05:59 Prasanth Test Pos 02/08/20 05:59 A-a Gradient 33.0 mmHg 02/08/20 05:59 FiO2 21.0 02/08/20 05:59 Blood Gas Comments Pt kev well eb 02/08/20 05:59 Sodium 138 mmol/L (136-145) 02/13/20 04:16 Corrected Sodium 139 mmol/L (136-145) 02/13/20 04:16 Potassium 4.7 mmol/L (3.5-5.1) 02/13/20 04:16 Chloride 105 mmol/L (98-107) 02/13/20 04:16 Carbon Dioxide 26.9 mmol/L (21-32) 02/13/20 04:16 BUN 29 mg/dL (7-18) H 02/13/20 04:16 Creatinine 0.97 mg/dL (0.55-1.02) 02/13/20 04:16 Est GFR (MDRD) Af Amer > 60 (>60) 02/13/20 04:16 Est GFR (MDRD) Non-Af 58 (>60) L 02/13/20 04:16 Glucose 121 mg/dL (65-99) H 02/13/20 04:16 Lactic Acid 1.0 mmol/L (0.4-2.0) 02/02/20 18:15 Calcium 8.3 mg/dL (8.5-10.1) L 02/13/20 04:16 Corrected Calcium 9.7 mg/dL (8.5-10.1) 02/13/20 04:16 Magnesium 2.0 mg/dL (1.7-2.9) 02/11/20 04:50 Iron 13 ug/dL (50-175) L 02/01/20 04:10 TIBC 84 ug/dL (250-450) L 02/01/20 04:10 Transferrin 115 mg/dL (202-364) L 01/29/20 13:05 Ferritin 2730 ng/mL (8-252) H 02/12/20 05:07 Total Bilirubin 0.30 mg/dL (0.2-1.0) 02/13/20 04:16 AST 21 Units/L (15-37) 02/13/20 04:16 ALT 38 Units/L (12-78) 02/13/20 04:16 Alkaline Phosphatase 215 Units/L (46-116) H 02/13/20 04:16 Creatine Kinase 203 Units/L (26-192) H 01/29/20 13:05 CK-MB (CK-2) < 1.0 ng/mL (0-4.0) 01/29/20 13:05 CK/CKMB % Calc 0.5 % (<4) 01/29/20 13:05 Troponin I < 0.02 ng/mL (0-1.5) 01/29/20 13:05 C-Reactive Protein 13.90 mg/L (0-3.0) H 02/12/20 05:07 Total Protein 5.5 g/dL (6.4-8.2) L 02/13/20 04:16 Albumin 2.2 g/dL (3.4-5.0) L 02/13/20 04:16 Globulin 3.3 g/dL (2.5-4.5) 02/13/20 04:16 Albumin/Globulin Ratio 0.7 Ratio (1.1-2.1) L 02/13/20 04:16 Vitamin B12 281 pg/mL (193-986) 01/29/20 13:05 Folate 8.5 ng/mL (>8.6) L 01/29/20 13:05 Specimen Type Catherized urine 01/29/20 15:53 Urine Color Yellow (YELLOW) 01/29/20 15:53 Urine Appearance Hazy (CLEAR) 01/29/20 15:53 Urine pH 5.0 (5.0 - 8.0) 01/29/20 15:53 Ur Specific [place] 1.020 (1.000-1.030) 01/29/20 15:53 Urine Protein 2+ (NEGATIVE) 01/29/20 15:53 Urine Glucose (UA) Negative (NEGATIVE) 01/29/20 15:53 Urine Ketones 2+ (NEGATIVE) 01/29/20 15:53 Urine Occult Blood 2+ (NEGATIVE) 01/29/20 15:53 Urine Nitrite Negative (NEGATIVE) 01/29/20 15:53 Urine Bilirubin Negative (NEGATIVE) 01/29/20 15:53 Urine Urobilinogen Normal (NORMAL) 01/29/20 15:53 Ur Leukocyte Esterase Negative (NEGATIVE) 01/29/20 15:53 Urine RBC 3-5 /HPF (0-3) A 01/29/20 15:53 Urine WBC 0-2 /HPF (0-5) 01/29/20 15:53 Ur Squamous Epith Cells Many /HPF (NEGATIVE) 01/29/20 15:53 Urine Bacteria Trace /HPF (NEGATIVE) 01/29/20 15:53 Ur Culture Indicated? No/not indicated 01/29/20 15:53 Stool Description 15g green unformed 02/03/20 10:45 Stl Occult Blood (IFOB) Negative (NEGATIVE) 02/03/20 10:45 SARS-CoV-2 (PCR) Positive (NEGATIVE) A 01/29/20 14:37 Blood Type O POSITIVE 01/31/20 17:40 Antibody Screen Negative 01/31/20 17:40 Crossmatch See Detail 01/31/20 17:40 - Plan (1) Closed fracture of left hip Status: Acute Qualifiers: Encounter type: initial encounter Qualified Code(s): S72.002A - Fracture of unspecified part of neck of left femur, initial encounter for closed fracture Plan: BEDREST, [place] CATH, BP AND CARDIAC MONITORING. CONTINUE REHAB THERAPY, AM LABS. PRN SUPPLEMENTAL O2. IV HYDRATION, ORAL NUTRITION. IV ATBX THERAPY (2) Hypertension Status: Chronic (3) COVID-19 Status: Acute Plan: ASYMPTOMATIC, CXR ON ADMISSION. ISOLATION UNIT (4) Osteoarthritis Status: Chronic Qualifiers: Osteoarthritis location: multiple joints Osteoarthritis type: primary
--- NOTE | 2020-02-19 11:59 | PCM.PROG ---
Progress Note - Progress Note for Day of Date of Exam: 02/08/20 - Subjective Subjective: IS A 84 YEAR OLD PATIENT OF . SHE WAS ADMITTED FOLLOWING A TRAMATIC LEFT HIP FRACTURE REPAIR LAST SUNDAY BY . SHE WAS ALSO NOTED TO BE COVID-19 POSITIVE, ASYMPTOMATIC ON ADMISSION. SHE HAS BEEN RECEIVING POSTOPERATEIVE WOUND CARE AND PHYSICAL THERAPY SINCE ADMISSION. SHE DID BEGIN HAVING FEVER AND COUGH AFTER ADMISSION. SHE WAS STARTED ON THE REMDESIVIR REGIMEN FOR COVID-19 AND ACUTE BRONCHITIS. SHE ALSO GREW OUT E.COLI IN HER URINE. TODAY, SHE IS ALERT AND ORIENTED, LYING IN BED ON MORNING ROUNDS. SHE CONTINUES TO REPORT WEAKNESS AND SHORTNESS OF BREATH THIS MORNING. SHE ALSO ADMITS TO MILD LEFT HIP PAIN. ON EXAMINATION, HEART IS REGULAR IN RATE AND RHY THM. BILATERAL LUNGS ARE NOTED WITH SCATTERED WHEEZING THROUGHOUT. ABDOMEN IS ROUND, SOFT, AND NON-TENDER WITH NORMAL BOWEL SOUNDS NOTED IN ALL QUADRANTS. NO LOWER EXTREMITY EDEMA NOTED. THERE IS A SURGICAL DRESSING TO RIGHT HIP WITH NO S/SX INFECTION NOTED. HER VITALS THIS MORNING ARE: 97.9-99-22-98%-104/52. LABS WERE OBTAINED. ABNORMAL LAB VALUES INCLUDE THE FOLLOWING: RBC 3.05, HGB 7.9, HCT 23.9, BUN 27, CALCIUM 8.1, FERRITIN 2697, AST 47, CRP 78.30, TOTAL PROTEIN 4.9, ALBUMIN 1.7. A CHEST XRAY WAS OBTAINED AND REVEALED: There is no change in appearance of heart, lungs or mediastinum. Diffuse interstitial prominence is again noted bilaterally. Suggestion of nodule formation in right midlung. SHE IS CURRENTLY RECEIVING ZOSYN 3.375G IV TID, PROCALAMINE AT 40 ML/HR, LR AT [facility], THE POTASSIUM AND MAGNESIUM PROTOCOLS, REMDESIVIR 100MG IV DAILY, XARELTO 15MG PO DAILY, NORCO 5/325MG PO Q6H PRN, ZOFRAN, PROTONIX, FERROUS GLUCONATE, PROCARDIA, AND MORPHINE 2-4MG IV Q4H PRN. WE WILL CONTINUE WITH CURRENT PLAN OF CARE TODAY. OTHERWISE, WE WILL FOLLOW UP WITH AM LABS AND CHEST XRAY AND CONTINUE TO MONITOR. - Past Medical Family Social History Past Med/Fam/Surg Hx: No changes since H&P Allergies: Allergies codeine Allergy (Verified 01/29/20 12:44) Sulfa (Sulfonamide Antibiotics) [SULFA] Allergy (Verified 01/29/20 12:44) - Review of Systems ROS: No change since H&P - Vital Signs and I&O's Vital Signs: Temperature 98.7 F Pulse Rate [Right Brachial] 93 Pulse Rate 93 Respiratory Rate 18 Blood Pressure [Left Arm] 133/69 Blood Pressure [Right Arm] 148/69 Blood Pressure 132/63 O2 Sat by Pulse Oximetry 96 - Physical Exam Oriented: Normal Eyes: Normal Ear: Normal Nose: Normal Throat: Normal Respiratory: Wheezes Cardiovascular: Normal. negative: Edema : Normal Auscultation: Bowel Sounds: Normal Tenderness: Normal Skin: Decreased Turgur, Wound (SURGICAL WOUND LEFT HIP ) Musculoskeletal: Left, Hip, Swelling, Tender Psychiatric: Normal Mood Description: Calm Speech Pattern: Delayed - Laboratory and Diagnostics Result Diagrams: 02/13/20 04:16 02/13/20 04:16 Labs: 02/02/20 18:15 Blood Blood Culture - Final 02/02/20 18:15 Blood Blood Culture - Final 02/02/20 18:25 Urine,Clean Catch Urine Culture - Final Escherichia Coli Laboratory WBC 5.3 X10^3/uL (3.6-10.0) 02/13/20 04:16 RBC 3.77 X10^6/uL (3.5-5.4) 02/13/20 04:16 Hgb 9.7 g/dL (12.0-16.0) L 02/13/20 04:16 Hct 29.3 % (36.0-47.0) L 02/13/20 04:16 MCV 77.7 fL (80.0-100.0) L 02/13/20 04:16 MCH 25.7 pg (27.0-34.0) L 02/13/20 04:16 MCHC 33.1 g/dL (33.0-35.0) 02/13/20 04:16 RDW 20.6 % (11.6-16.5) H 02/13/20 04:16 Plt Count 369 X10^3/uL (150.0-450.0) 02/13/20 04:16 Plt Count Comment Adequate (ADEQUATE) 02/13/20 04:16 MPV 6.9 fL (7.4-11.0) L 02/13/20 04:16 Neut % (Auto) 70.3 % (42.0-75.0) 02/13/20 04:16 Lymph % (Auto) 23.3 % (21.0-51.0) 02/13/20 04:16 [place] % (Auto) 5.9 % (0.0-13.0) 02/13/20 04:16 Eos % (Auto) 0.0 % (0.9-2.9) L 02/13/20 04:16 Baso % (Auto) 0.5 % (0.2-1.0) 02/13/20 04:16 Neut # (Auto) 3.7 x10^3/uL (2.2-4.8) 02/13/20 04:16 Lymph # (Auto) 1.2 X10^3/uL (1.3-2.9) L 02/13/20 04:16 [place] # (Auto) 0.3 x10^3/uL (0.3-0.8) 02/13/20 04:16 Eos # (Auto) 0.0 x10^3/uL (0.0-0.2) 02/13/20 04:16 Baso # (Auto) 0.0 X10^3/uL (0.0-0.1) 02/13/20 04:16 Absolute Nucleated RBC 0.6 /100WBC 02/13/20 04:16 Total Counted 100 02/13/20 04:16 Neutrophils % (Manual) 83 % (39-76) H 02/13/20 04:16 Band Neutrophils % 4 % (0-10) 02/09/20 03:40 Lymphocytes % (Manual) 13 % (13-43) 02/13/20 04:16 Monocytes % (Manual) 4 % (4-9) 02/13/20 04:16 Eosinophils % (Manual) 2 % (0-6) 01/31/20 11:02 Metamyelocytes % 1 01/29/20 13:05 Myelocytes % 1 01/29/20 13:05 Plt Morphology Comment Normal (NORMAL) 02/13/20 04:16 RBC Morphology Abnormal (NORMAL) A 02/13/20 04:16 Hypochromasia Slight A 02/13/20 04:16 Anisocytosis 1+ A 02/13/20 04:16 Microcytosis Slight A 02/02/20 18:15 Ovalocytes Present 02/12/20 05:07 Helmet Cells Present 01/29/20 13:05 [place] Cells Present 02/12/20 05:07 PT 13.8 SECONDS (11.8-14.3) 01/30/20 05:28 INR Target Range - 01/30/20 05:28 INR 1.09 (0.8-1.3) 01/30/20 05:28 APTT 31.6 SECONDS (22.9-36.5) 01/30/20 05:28 PTT Comment - 01/30/20 05:28 Sample Site Lra 02/08/20 05:59 ABG pH 7.500 (7.35-7.45) H 02/08/20 05:59 ABG pCO2 36.0 mmHg (35.0-45.0) 02/08/20 05:59 ABG pO2 72.0 mmHg (80.0-100.0) L 02/08/20 05:59 ABG HCO3 28.1 mmol/L (22-26) H 02/08/20 05:59 ABG O2 Saturation 96.0 % (90-100) 02/08/20 05:59 ABG Base Excess 4.8 mmol/L (-2.0-2.0) H 02/08/20 05:59 Prasanth Test Pos 02/08/20 05:59 A-a Gradient 33.0 mmHg 02/08/20 05:59 FiO2 21.0 02/08/20 05:59 Blood Gas Comments Pt kev well eb 02/08/20 05:59 Sodium 138 mmol/L (136-145) 02/13/20 04:16 Corrected Sodium 139 mmol/L (136-145) 02/13/20 04:16 Potassium 4.7 mmol/L (3.5-5.1) 02/13/20 04:16 Chloride 105 mmol/L (98-107) 02/13/20 04:16 Carbon Dioxide 26.9 mmol/L (21-32) 02/13/20 04:16 BUN 29 mg/dL (7-18) H 02/13/20 04:16 Creatinine 0.97 mg/dL (0.55-1.02) 02/13/20 04:16 Est GFR (MDRD) Af Amer > 60 (>60) 02/13/20 04:16 Est GFR (MDRD) Non-Af 58 (>60) L 02/13/20 04:16 Glucose 121 mg/dL (65-99) H 02/13/20 04:16 Lactic Acid 1.0 mmol/L (0.4-2.0) 02/02/20 18:15 Calcium 8.3 mg/dL (8.5-10.1) L 02/13/20 04:16 Corrected Calcium 9.7 mg/dL (8.5-10.1) 02/13/20 04:16 Magnesium 2.0 mg/dL (1.7-2.9) 02/11/20 04:50 Iron 13 ug/dL (50-175) L 02/01/20 04:10 TIBC 84 ug/dL (250-450) L 02/01/20 04:10 Transferrin 115 mg/dL (202-364) L 01/29/20 13:05 Ferritin 2730 ng/mL (8-252) H 02/12/20 05:07 Total Bilirubin 0.30 mg/dL (0.2-1.0) 02/13/20 04:16 AST 21 Units/L (15-37) 02/13/20 04:16 ALT 38 Units/L (12-78) 02/13/20 04:16 Alkaline Phosphatase 215 Units/L (46-116) H 02/13/20 04:16 Creatine Kinase 203 Units/L (26-192) H 01/29/20 13:05 CK-MB (CK-2) < 1.0 ng/mL (0-4.0) 01/29/20 13:05 CK/CKMB % Calc 0.5 % (<4) 01/29/20 13:05 Troponin I < 0.02 ng/mL (0-1.5) 01/29/20 13:05 C-Reactive Protein 13.90 mg/L (0-3.0) H 02/12/20 05:07 Total Protein 5.5 g/dL (6.4-8.2) L 02/13/20 04:16 Albumin 2.2 g/dL (3.4-5.0) L 02/13/20 04:16 Globulin 3.3 g/dL (2.5-4.5) 02/13/20 04:16 Albumin/Globulin Ratio 0.7 Ratio (1.1-2.1) L 02/13/20 04:16 Vitamin B12 281 pg/mL (193-986) 01/29/20 13:05 Folate 8.5 ng/mL (>8.6) L 01/29/20 13:05 Specimen Type Catherized urine 01/29/20 15:53 Urine Color Yellow (YELLOW) 01/29/20 15:53 Urine Appearance Hazy (CLEAR) 01/29/20 15:53 Urine pH 5.0 (5.0 - 8.0) 01/29/20 15:53 Ur Specific [place] 1.020 (1.000-1.030) 01/29/20 15:53 Urine Protein 2+ (NEGATIVE) 01/29/20 15:53 Urine Glucose (UA) Negative (NEGATIVE) 01/29/20 15:53 Urine Ketones 2+ (NEGATIVE) 01/29/20 15:53 Urine Occult Blood 2+ (NEGATIVE) 01/29/20 15:53 Urine Nitrite Negative (NEGATIVE) 01/29/20 15:53 Urine Bilirubin Negative (NEGATIVE) 01/29/20 15:53 Urine Urobilinogen Normal (NORMAL) 01/29/20 15:53 Ur Leukocyte Esterase Negative (NEGATIVE) 01/29/20 15:53 Urine RBC 3-5 /HPF (0-3) A 01/29/20 15:53 Urine WBC 0-2 /HPF (0-5) 01/29/20 15:53 Ur Squamous Epith Cells Many /HPF (NEGATIVE) 01/29/20 15:53 Urine Bacteria Trace /HPF (NEGATIVE) 01/29/20 15:53 Ur Culture Indicated? 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 coli UTI (urinary tract infection) Status: Acute (5) Failure to thrive Status: Acute Qualifiers: Failure to thrive age range: in adult Qualified Code(s): R62.7 - Adult failure to thrive (6) Hypertension Status: Chronic (7) COVID-19 Status: Acute Plan: ASYMPTOMATIC, CXR ON ADMISSION. ISOLATION UNIT
== END 2020-02-13 16:40 | disposition home health service (06) | DRG 480 ==
LOC: ER 12:19 → MED/SURG 15:42 → ICU 16:11 → MED/SURG 16:20
PROVIDERS: ADMIT Internal Medicine; ATTEND Internal Medicine
DX: R62.7 Adult failure to thrive; N39.0 Urinary tract infection, site not specified; I10 Essential (primary) hypertension; R26.89 Other abnormalities of gait and mobility; M19.90 Unspecified osteoarthritis, unspecified site; B96.29 Other Escherichia coli [E. coli] as the cause of diseases classified elsewhere; W18.39XA Other fall on same level, initial encounter; K92.2 Gastrointestinal hemorrhage, unspecified; J12.89 Other viral pneumonia; U07.1 COVID-19; Z79.01 Long term (current) use of anticoagulants; S72.002A Fracture of unspecified part of neck of left femur, initial encounter for closed fracture; D50.8 Other iron deficiency anemias; R94.31 Abnormal electrocardiogram [ECG] [EKG]; R06.02 Shortness of breath; M25.552 Pain in left hip; K21.9 Gastro-esophageal reflux disease without esophagitis; R13.11 Dysphagia, oral phase

== ENCOUNTER 2020-06-18 18:18 | Observation (INO) ==
[2020-06-18] MEDS ORDERED: NS 1000 ML 1,000 ML ONE (18:45)
--- NOTE | 2020-06-18 19:02 | DR.AMS ---
HPI Time Seen Time Seen by Provider: 06/18/20 18:22 HPI Comment HPI Comment: PATIENT WITH A HISTORY OF METASTATIC CANCER TO BONE, CHRONIC RENAL DISEASE AND ANEMIA, HAS DECREASING RESPONSIVENESS, WEAKNESS PAST 2 DAYS. NO HISTORY OF COUGH, DYSPNEA, EMESIS, DIARRHEA, FEVER, CHEST PAIN. HAS POOR ORAL IN TAKE Complaint Cheif Complaint Doctors Comments: altered level of consciousness PMH PMH Past Medical History: Anemia, Arthritis and Hypertension Past Surgical History: Yes Surgical History: , Hysterectomy and Tonsillectomy Family History Family Medical History: Diabetes Mellitus, Cancer and Hypertension Social History Do you use any recreational Drugs:: No ROS Review of Systems Constitutional: See HPI, Malaise and Weakness Eyes: No Symptoms Reported ENTM: No Symptoms Reported Respiratoy: No Symptoms Reported Cardiovascular: No Symptoms Reported Gastrointestinal/Abdominal: No Symptoms Reported Genitourinary: No Symptoms Reported Neurological: See HPI and Other (altered mental status, decrease responsiveness) Musculoskeletal: No Symptoms Reported Integumentary: No Symptoms Reported Hematologic/Lymphatic: No Symptoms Reported Endocrine: No Symptoms Reported Psychiatric: No Symptoms Reported All Other Systems: Reviewed and Negative PE Vitals Vital Signs: Temp Pulse Resp BP BP Pulse Ox 06/18/20 23:00 87 24 108/52 98 06/18/20 22:00 86 24 110/68 99 06/18/20 21:15 87 24 99 06/18/20 21:00 92 H 22 138/63 98 06/18/20 20:45 89 27 H 99 06/18/20 20:30 89 26 H 124/60 99 06/18/20 20:15 88 25 H 98 06/18/20 20:00 90 28 H 131/60 96 06/18/20 19:45 91 H 27 H 97 06/18/20 19:30 92 H 26 H 125/58 96 06/18/20 19:16 96 H 96 06/18/20 19:00 91 H 19 125/57 95 06/18/20 18:45 92 H 13 96 06/18/20 18:30 94 H 21 124/58 98 06/18/20 18:20 97 H 44 H 97 06/18/20 18:18 99.6 F 90 24 121/57 97 06/16/20 14:14 114/60 General Limitations: Physical Limitation General Appearance: Lethargic (ANSWERS YES AND NO TO QUESTIONS) Head Head Exam: Normal Inspection Eyes Eye exam: Normal Appearance ENT ENT Exam: Normal Exam External Ear Exam: Normal External Inspection Nose Exam: Normal Nose Exam Mouth Exam: Normal Inspection Throat Exam: Normal Inspection Neck Neck Exam: Normal Inspection Chest Chest Inspection: Normal Inspection Respiratory Respiratory Exam: Normal Lung Sounds Bilat Cardiovascular Cardiovascular Exam: Regular Rate and Normal Rhythm Abdominal Exam Abdominal Exam: Normal Inspection, Normal Bowel Sounds and Soft Extremities Extremities Exam: Normal Inspection Back Back Exam: Normal Inspection Neurological Neurological Exam: Alert and Oriented X3 Psychological Psychiatric Exam: Normal Affect and Normal Mood Skin Skin Exam: Warm, Dry, Intact and Normal Color COURSE Treatment Treatment: PATIENT HYDRATED NORMAL SALINE 800ML MENTAL STATUS IMPROVED ANSWERS QUESTIONS Consultation Consultation Comments: DISCUSSED WITH DR MCCLELLAND AT 2240 FOR OBSERVATION ROR Labs Reviewed Laboratory Results Reviewed?: Yes Result Diagrams: 06/18/20 18:41 06/18/20 18:41 Laboratory: WBC 10.2 X10^3/uL (3.6-10.0) H 06/18/20 18:41 RBC 4.26 X10^6/uL (3.5-5.4) 06/18/20 18:41 Hgb 10.2 g/dL (12.0-16.0) L 06/18/20 18:41 Hct 32.5 % (36.0-47.0) L 06/18/20 18:41 MCV 76.3 fL (80.0-100.0) L 06/18/20 18:41 MCH 24.0 pg (27.0-34.0) L 06/18/20 18:41 MCHC 31.4 g/dL (33.0-35.0) L 06/18/20 18:41 RDW 16.3 % (11.6-16.5) 06/18/20 18:41 Plt Count 379 X10^3/uL (150.0-450.0) 06/18/20 18:41 Plt Count Comment Adequate (ADEQUATE) 06/18/20 18:41 MPV 8.4 fL (7.4-11.0) 06/18/20 18:41 Neut % (Auto) 67.9 % (42.0-75.0) 06/18/20 18:41 Lymph % (Auto) 24.4 % (21.0-51.0) 06/18/20 18:41 [place] % (Auto) 5.9 % (0.0-13.0) 06/18/20 18:41 Eos % (Auto) 1.1 % (0.9-2.9) 06/18/20 18:41 Baso % (Auto) 0.7 % (0.2-1.0) 06/18/20 18:41 Neut # (Auto) 6.9 x10^3/uL (2.2-4.8) H 06/18/20 18:41 Lymph # (Auto) 2.5 X10^3/uL (1.3-2.9) 06/18/20 18:41 [place] # (Auto) 0.6 x10^3/uL (0.3-0.8) 06/18/20 18:41 Eos # (Auto) 0.1 x10^3/uL (0.0-0.2) 06/18/20 18:41 Baso # (Auto) 0.1 X10^3/uL (0.0-0.1) 06/18/20 18:41 Absolute Nucleated RBC 0.2 /100WBC 06/18/20 18:41 Total Counted 100 06/18/20 18:41 Neutrophils % (Manual) 65 % (39-76) 06/18/20 18:41 Band Neutrophils % 6 % (0-10) 06/18/20 18:41 Lymphocytes % (Manual) 21 % (13-43) 06/18/20 18:41 Monocytes % (Manual) 6 % (4-9) 06/18/20 18:41 Eosinophils % (Manual) 1 % (0-6) 06/18/20 18:41 Basophils % (Manual) 1 % (0-1) 06/18/20 18:41 Plt Morphology Comment Normal (NORMAL) 06/18/20 18:41 RBC Morphology Abnormal (NORMAL) A 06/18/20 18:41 Hypochromasia Slight A 06/18/20 18:41 Poikilocytosis Slight A 06/18/20 18:41 [place] Cells Slight A 06/18/20 18:41 Sodium 133 mmol/L (136-145) L 06/18/20 18:41 Corrected Sodium TNP 06/18/20 18:41 Potassium 3.6 mmol/L (3.5-5.1) 06/18/20 18:41 Chloride 98 mmol/L (98-107) 06/18/20 18:41 Carbon Dioxide 25.9 mmol/L (21-32) 06/18/20 18:41 BUN 11 mg/dL (7-18) 06/18/20 18:41 Creatinine 0.92 mg/dL (0.55-1.02) 06/18/20 18:41 Est GFR (MDRD) Af Amer > 60 (>60) 06/18/20 18:41 Est GFR (MDRD) Non-Af > 60 (>60) 06/18/20 18:41 Glucose 81 mg/dL (65-99) 06/18/20 18:41 Calcium 9.9 mg/dL (8.5-10.1) 06/18/20 18:41 Corrected Calcium 11.6 mg/dL (8.5-10.1) H 06/18/20 18:41 Total Bilirubin 0.40 mg/dL (0.2-1.0) 06/18/20 18:41 AST 43 Units/L (15-37) H 06/18/20 18:41 ALT 21 Units/L (12-78) 06/18/20 18:41 Alkaline Phosphatase 80 Units/L (46-116) 06/18/20 18:41 Troponin I 0.02 ng/mL (0-1.5) 06/18/20 18:41 Total Protein 6.4 g/dL (6.4-8.2) 06/18/20 18:41 Albumin 1.9 g/dL (3.4-5.0) L 06/18/20 18:41 Globulin 4.5 g/dL (2.5-4.5) 06/18/20 18:41 Albumin/Globulin Ratio 0.4 Ratio (1.1-2.1) L 06/18/20 18:41 Specimen Type Catherized urine 06/18/20 21:17 Urine Color Yellow (YELLOW) 06/18/20 21:17 Urine Appearance Clear (CLEAR) 06/18/20 21:17 Urine pH 6.0 (5.0 - 8.0) 06/18/20 21:17 Ur Specific [place] 1.015 (1.000-1.030) 06/18/20 21:17 Urine Protein 2+ (NEGATIVE) 06/18/20 21:17 Urine Glucose (UA) Negative (NEGATIVE) 06/18/20 21:17 Urine Ketones 1+ (NEGATIVE) 06/18/20 21:17 Urine Occult Blood 2+ (NEGATIVE) 06/18/20 21:17 Urine Nitrite Negative (NEGATIVE) 06/18/20 21:17 Urine Bilirubin Negative (NEGATIVE) 06/18/20 21:17 Urine Urobilinogen 2+ (NORMAL) 06/18/20 21:17 Ur Leukocyte Esterase Negative (NEGATIVE) 06/18/20 21:17 Urine RBC 0-2 /HPF (0-3) 06/18/20 21:17 Urine WBC None seen /HPF (0-5) 06/18/20 21:17 Ur Squamous Epith Cells Rare /HPF (NEGATIVE) 06/18/20 21:17 Urine Bacteria Negative /HPF (NEGATIVE) 06/18/20 21:17 Ur Culture Indicated? No/not indicated 06/18/20 21:17 Influenza Type A (PCR) Negative (NEGATIVE) 06/18/20 21:17 Influenza Type B (PCR) Negative (NEGATIVE) 06/18/20 21:17 SARS CoV-2 RNA Rapid CHRIS Negative (NEGATIVE) 06/18/20 21:17 XRAY XRAY Interpreted by: Radiologist X-ray Results: CHEST XRAY NEG, HEAD CT SCAN NEGATIVE EKG Rate: 93 Rhythm: NSR (ME INTERVAL 157 MSEC, QT-384 MSEC, PROLONGED QT-478) ST: Inf (INFERIOR ST WAVES CHANGES) Opioid Opioid Risk Tool Age ([place] box if 16-45): No History of Preadolescent Sexual Abuse: No Total: 0 Total Score Risk Category: Low Risk Copyright: Edilberto BENITES predicting aberrant behaviors Diagnosis Discharge Problem: Acute dehydration Instructions Forms: Precautions for COVID19 Patient Portal Social Distancing
[2020-06-18 19:22] LABS: BASOPHILS # (AUTO) 0.1 X10^3/uL (0.0-0.1); BASOPHILS % (AUTO) 0.7 % (0.2-1.0); EOSINOPHILS # (AUTO) 0.1 x10^3/uL (0.0-0.2); EOSINOPHILS % (AUTO) 1.1 % (0.9-2.9); HEMATOCRIT 32.5 % (36.0-47.0); HEMOGLOBIN 10.2 g/dL (12.0-16.0); LYMPHOCYTES # (AUTO) 2.5 X10^3/uL (1.3-2.9); LYMPHOCYTES % (AUTO) 24.4 % (21.0-51.0); MEAN CORPUSCULAR HGB CONC 31.4 g/dL (33.0-35.0); MEAN CORPUSCULAR VOLUME 76.3 fL (80.0-100.0); MEAN PLATELET VOLUME 8.4 fL (7.4-11.0); MONOCYTES # (AUTO) 0.6 x10^3/uL (0.3-0.8); MONOCYTES % (AUTO) 5.9 % (0.0-13.0); NEUTROPHILS # (AUTO) 6.9 x10^3/uL (2.2-4.8); NEUTROPHILS % (AUTO) 67.9 % (42.0-75.0); PLATELET COUNT 379 X10^3/uL (150.0-450.0); RED BLOOD COUNT 4.26 X10^6/uL (3.5-5.4); RED CELL DISTRIBUTION WIDTH 16.3 % (11.6-16.5); WHITE BLOOD COUNT 10.2 X10^3/uL (3.6-10.0)
[2020-06-18 19:34] LABS: ALANINE AMINOTRANSFERASE 21 Units/L (12-78); ALBUMIN 1.9 g/dL (3.4-5.0); ALKALINE PHOSPHATASE 80 Units/L (46-116); ASPARTATE AMINO TRANSFERASE 43 Units/L (15-37); BLOOD UREA NITROGEN 11 mg/dL (7-18); CALCIUM 9.9 mg/dL (8.5-10.1); CARBON DIOXIDE 25.9 mmol/L (21-32); CHLORIDE 98 mmol/L (98-107); COR CA(FOR HYPOALB) 11.6 mg/dL (8.5-10.1); CREATININE 0.92 mg/dL (0.55-1.02); SODIUM 133 mmol/L (136-145); TOTAL PROTEIN 6.4 g/dL (6.4-8.2); TROPONIN I 0.02 ng/mL (0-1.5); eGFR NON BLACK RACES > 60 (>60)
--- NOTE | 2020-06-18 19:35 | RAD ---
HISTORYEMS OUT TO WEAKNESS AND AMS PT GROANS WHEN MOVING FROM STRETCHER TO BED PT'S FAMILY STATES "SHE'S LEST RESPONSIVE THAN SHE HAS BEEN" PT WAS SEEN IN THE ED ON Sunday DX WITH DEHYDATIONSTUDYCHEST, 1 VIEWCOMPARISONChest x-ray dated June 16, 2020.FINDINGSThe trachea is midline. The cardiac silhouette is unchanged.. Chronic emphysematous and interstitial lung changes. The lungs are clear without focal infiltrate, pneumothorax, or effusion. The bony thorax is unremarkable.IMPRESSIONNo acute cardiopulmonary disease.Electronically signed by: BECCA VALENTINO (Jun 18, 2020 19:33:20)
--- NOTE | 2020-06-18 19:39 | CT ---
HISTORYEMS OUT TO WEAKNESS AND AMS PT GROANS WHEN MOVING FROM STRETCHER TO BED PT'S FAMILY STATES "SHE'S LEST RESPONSIVE THAN SHE HAS BEEN" PT WAS SEEN IN THE ED ON Sunday DX WITH DEHYDATIONSTUDYBRAIN W/O CONCOMPARISONCT head dated January 29, 2020.TECHNIQUEMultiple axial images of the head without contrast. Dose reduction techniques including Automated Exposure Control (AEC) and adjustment of mA and kV were utilized.FINDINGSAge related cortical atrophy and chronic small vessel ischemic changes. [No acute intraparenchymal hemorrhage or mass can be identified.] [No extra-axial fluid collections are seen.] [No alteration in the attenuation of the brain parenchyma can be identified to suggest acute or subacute ischemic change.] [The ventricular system is symmetric and nondilated.] [The extracranial structures are grossly unremarkable.]IMPRESSIONNo CT evidence of acute intracranial pathology. If clinically concerned for acute ischemia/infarction, MRI of the brain is more sensitive.Electronically signed by: BECCA VALENTINO (Jun 18, 2020 19:38:27)
[2020-06-18 19:40] LABS: BAND NEUTROPHILS % 6 % (0-10); BASOPHILS % (MANUAL) 1 % (0-1); PLATELET MORPHOLOGY COMMENT NORMAL (NORMAL)
[2020-06-18 19:41] LABS: BURR CELLS SLIGHT; HYPOCHROMASIA SLIGHT; POIKILOCYTOSIS SLIGHT
[2020-06-18 21:36] LABS: BILIRUBIN,URINE NEGATIVE (NEGATIVE); BLOOD/HEMOGLOBIN,URINE 2+ (NEGATIVE); GLUCOSE, URINE NEGATIVE (NEGATIVE); KETONES,URINE 1+ (NEGATIVE); LEUKOCYTE ESTERASE ,URINE NEGATIVE (NEGATIVE); NITRITES,URINE NEGATIVE (NEGATIVE); PROTEIN,URINE 2+ (NEGATIVE); UROBILINOGEN,URINE 2+ (NORMAL)
[2020-06-18 22:04] LABS: APPEARANCE,URINE CLEAR (CLEAR); COLOR,URINE YELLOW (YELLOW)
[2020-06-18 22:05] LABS: BACTERIA,URINE NEGATIVE /HPF (NEGATIVE); RBC,URINE 0-2 /HPF (0-3); SQUAMOUS EPITHELIAL CELL,UR RARE /HPF (NEGATIVE)
[2020-06-19] MEDS: NS 1000 ML 1,000 ML IV SCH ×2 (01:48→15:05)
[2020-06-19 02:37] VITALS: BMI 21.4
[2020-06-19 06:19] LABS: BASOPHILS % (AUTO) 0.4 % (0.2-1.0); EOSINOPHILS # (AUTO) 0.1 x10^3/uL (0.0-0.2); EOSINOPHILS % (AUTO) 1.7 % (0.9-2.9); HEMATOCRIT 28.7 % (36.0-47.0); HEMOGLOBIN 9.2 g/dL (12.0-16.0); LYMPHOCYTES # (AUTO) 1.7 X10^3/uL (1.3-2.9); LYMPHOCYTES % (AUTO) 20.5 % (21.0-51.0); MEAN CORPUSCULAR HEMOGLOBIN 24.2 pg (27.0-34.0); MEAN CORPUSCULAR HGB CONC 32.1 g/dL (33.0-35.0); MEAN CORPUSCULAR VOLUME 75.2 fL (80.0-100.0); MEAN PLATELET VOLUME 7.6 fL (7.4-11.0); MONOCYTES # (AUTO) 0.4 x10^3/uL (0.3-0.8); MONOCYTES % (AUTO) 4.5 % (0.0-13.0); NEUTROPHILS # (AUTO) 5.9 x10^3/uL (2.2-4.8); NEUTROPHILS % (AUTO) 72.9 % (42.0-75.0); PLATELET COUNT 324 X10^3/uL (150.0-450.0); RED BLOOD COUNT 3.81 X10^6/uL (3.5-5.4); WHITE BLOOD COUNT 8.1 X10^3/uL (3.6-10.0)
[2020-06-19 06:31] LABS: ALANINE AMINOTRANSFERASE 20 Units/L (12-78); ALBUMIN 1.7 g/dL (3.4-5.0); ALKALINE PHOSPHATASE 67 Units/L (46-116); ASPARTATE AMINO TRANSFERASE 28 Units/L (15-37); BLOOD UREA NITROGEN 10 mg/dL (7-18); CALCIUM 8.6 mg/dL (8.5-10.1); CHLORIDE 101 mmol/L (98-107); COR CA(FOR HYPOALB) 10.4 mg/dL (8.5-10.1); CREATININE 0.84 mg/dL (0.55-1.02); SODIUM 136 mmol/L (136-145); TOTAL PROTEIN 5.6 g/dL (6.4-8.2); eGFR NON BLACK RACES > 60 (>60)
[2020-06-19 06:42] LABS: CARBON DIOXIDE 26.4 mmol/L (21-32)
[2020-06-19 07:17] LABS: HYPOCHROMASIA SLIGHT; PLATELET MORPHOLOGY COMMENT NORMAL (NORMAL); POIKILOCYTOSIS SLIGHT
--- NOTE | 2020-06-19 11:15 | DR.SSS ---
SHORT STAY SUMMARY Past Medical History Past Medical History: Anemia, Arthritis and Hypertension Past Surgical History Surgical History: , Hysterectomy and Tonsillectomy Allergies Allergies Allergy/AdvReac Type Severity Reaction Status Date / Time codeine Allergy Verified 01/29/20 12:44 Sulfa (Sulfonamide Allergy Verified 01/29/20 12:44 Antibiotics) [SULFA] Medications Home Medications: codeine Allergy (Verified 01/29/20 12:44) Sulfa (Sulfonamide Antibiotics) [SULFA] Allergy (Verified 01/29/20 12:44) CONTINUE taking the following medications polyethylene glycol 3350 [Miralax] 17 g PO DAILY 06/19/20 [History] Family History Family Medical History: Diabetes Mellitus, Cancer and Hypertension Social History Does patient currently use any type of tobacco product: No Have you used tobacco products in the last 12 months: No Type of Tobacco Use: None Does any household member use tobacco: No Alcohol Use: None Drug Use: None Physical Exam Vital Signs: Last Vital Signs Temp 97.8 F 06/19/20 08:00 Pulse 78 06/19/20 08:00 Resp 18 06/19/20 08:00 BP 97/56 06/19/20 08:00 Pulse Ox 98 06/19/20 08:00 Labs Labs: Laboratory Last Values WBC 8.1 X10^3/uL (3.6-10.0) 06/19/20 05:08 RBC 3.81 X10^6/uL (3.5-5.4) 06/19/20 05:08 Hgb 9.2 g/dL (12.0-16.0) L 06/19/20 05:08 Hct 28.7 % (36.0-47.0) L 06/19/20 05:08 MCV 75.2 fL (80.0-100.0) L 06/19/20 05:08 MCH 24.2 pg (27.0-34.0) L 06/19/20 05:08 MCHC 32.1 g/dL (33.0-35.0) L 06/19/20 05:08 RDW 16.0 % (11.6-16.5) 06/19/20 05:08 Plt Count 324 X10^3/uL (150.0-450.0) 06/19/20 05:08 Plt Count Comment Adequate (ADEQUATE) 06/19/20 05:08 MPV 7.6 fL (7.4-11.0) 06/19/20 05:08 Neut % (Auto) 72.9 % (42.0-75.0) 06/19/20 05:08 Lymph % (Auto) 20.5 % (21.0-51.0) L 06/19/20 05:08 [place] % (Auto) 4.5 % (0.0-13.0) 06/19/20 05:08 Eos % (Auto) 1.7 % (0.9-2.9) 06/19/20 05:08 Baso % (Auto) 0.4 % (0.2-1.0) 06/19/20 05:08 Neut # (Auto) 5.9 x10^3/uL (2.2-4.8) H 06/19/20 05:08 Lymph # (Auto) 1.7 X10^3/uL (1.3-2.9) 06/19/20 05:08 [place] # (Auto) 0.4 x10^3/uL (0.3-0.8) 06/19/20 05:08 Eos # (Auto) 0.1 x10^3/uL (0.0-0.2) 06/19/20 05:08 Baso # (Auto) 0.0 X10^3/uL (0.0-0.1) 06/19/20 05:08 Absolute Nucleated RBC 0.0 /100WBC 06/19/20 05:08 Total Counted 100 06/18/20 18:41 Neutrophils % (Manual) 65 % (39-76) 06/18/20 18:41 Band Neutrophils % 6 % (0-10) 06/18/20 18:41 Lymphocytes % (Manual) 21 % (13-43) 06/18/20 18:41 Monocytes % (Manual) 6 % (4-9) 06/18/20 18:41 Eosinophils % (Manual) 1 % (0-6) 06/18/20 18:41 Basophils % (Manual) 1 % (0-1) 06/18/20 18:41 Plt Morphology Comment Normal (NORMAL) 06/19/20 05:08 RBC Morphology Abnormal (NORMAL) A 06/19/20 05:08 Hypochromasia Slight A 06/19/20 05:08 Poikilocytosis Slight A 06/19/20 05:08 [place] Cells Slight A 06/18/20 18:41 Sodium 136 mmol/L (136-145) 06/19/20 05:08 Corrected Sodium TNP 06/19/20 05:08 Potassium 3.2 mmol/L (3.5-5.1) L 06/19/20 05:08 Chloride 101 mmol/L (98-107) 06/19/20 05:08 Carbon Dioxide 26.4 mmol/L (21-32) 06/19/20 05:08 BUN 10 mg/dL (7-18) 06/19/20 05:08 Creatinine 0.84 mg/dL (0.55-1.02) 06/19/20 05:08 Est GFR (MDRD) Af Amer > 60 (>60) 06/19/20 05:08 Est GFR (MDRD) Non-Af > 60 (>60) 06/19/20 05:08 Glucose 77 mg/dL (65-99) 06/19/20 05:08 Calcium 8.6 mg/dL (8.5-10.1) 06/19/20 05:08 Corrected Calcium 10.4 mg/dL (8.5-10.1) H 06/19/20 05:08 Total Bilirubin 0.40 mg/dL (0.2-1.0) 06/19/20 05:08 AST 28 Units/L (15-37) 06/19/20 05:08 ALT 20 Units/L (12-78) 06/19/20 05:08 Alkaline Phosphatase 67 Units/L (46-116) 06/19/20 05:08 Troponin I 0.02 ng/mL (0-1.5) 06/18/20 18:41 Total Protein 5.6 g/dL (6.4-8.2) L 06/19/20 05:08 Albumin 1.7 g/dL (3.4-5.0) L 06/19/20 05:08 Globulin 3.9 g/dL (2.5-4.5) 06/19/20 05:08 Albumin/Globulin Ratio 0.4 Ratio (1.1-2.1) L 06/19/20 05:08 Specimen Type Catherized urine 06/18/20 21:17 Urine Color Yellow (YELLOW) 06/18/20 21:17 Urine Appearance Clear (CLEAR) 06/18/20 21:17 Urine pH 6.0 (5.0 - 8.0) 06/18/20 21:17 Ur Specific [place] 1.015 (1.000-1.030) 06/18/20 21:17 Urine Protein 2+ (NEGATIVE) 06/18/20 21:17 Urine Glucose (UA) Negative (NEGATIVE) 06/18/20 21:17 Urine Ketones 1+ (NEGATIVE) 06/18/20 21:17 Urine Occult Blood 2+ (NEGATIVE) 06/18/20 21:17 Urine Nitrite Negative (NEGATIVE) 06/18/20 21:17 Urine Bilirubin Negative (NEGATIVE) 06/18/20 21:17 Urine Urobilinogen 2+ (NORMAL) 06/18/20 21:17 Ur Leukocyte Esterase Negative (NEGATIVE) 06/18/20 21:17 Urine RBC 0-2 /HPF (0-3) 06/18/20 21:17 Urine WBC None seen /HPF (0-5) 06/18/20 21:17 Ur Squamous Epith Cells Rare /HPF (NEGATIVE) 06/18/20 21:17 Urine Bacteria Negative /HPF (NEGATIVE) 06/18/20 21:17 Ur Culture Indicated? No/not indicated 06/18/20 21:17 Influenza Type A (PCR) Negative (NEGATIVE) 06/18/20 21:17 Influenza Type B (PCR) Negative (NEGATIVE) 06/18/20 21:17 SARS CoV-2 RNA Rapid CHRIS Negative (NEGATIVE) 06/18/20 21:17 Discharge Medications Discharge Medications: Home Medication List polyethylene glycol 3350 [Miralax] 17 g PO DAILY 06/19/20 [History] Prescriptions:
[2020-06-19] MEDS ORDERED: PROTONIX TAB 40 MG PO SCH (12:00)
[2020-06-19] MEDS ORDERED: FERROUS GLUCONATE PO SCH (12:00)
[2020-06-19] MEDS ORDERED: K-DUR TAB 20 MEQ PO SCH (12:00)
[2020-06-19] MEDS ORDERED: PERIACTIN TAB 4 MG PO SCH (12:00)
[2020-06-19 12:12] VITALS: BP 110/56
--- NOTE | 2020-06-19 13:49 | RAD ---
HISTORYHip painSTUDYLeft hip four viewsCOMPARISONPelvis 03/09/2020FINDINGSSurgical fixation hardware again noted in the left hip and femur. The intramedullary ann extends to the distal femoral metaphysis. There is no evidence for acute fracture, bone infection, or hardware complication. 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 Osteopenia is present with osteoarthritis of the knee. There is mild degenerative narrowing of the left hip joint space.IMPRESSIONNo acute findings. Stable appearance of ORIF left femoral fracture.Electronically signed by: SUMIT DONG (Jun 19, 2020 13:47:51)
== END 2020-06-19 15:33 | disposition home or self-care (01) ==
LOC: ER 18:18 → MED/SURG 18:18
PROVIDERS: ADMIT Family Medicine; ATTEND Family Medicine

== ENCOUNTER 2020-06-22 13:16 | Observation (INO) ==
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
--- NOTE | 2020-06-22 14:10 | RAD ---
HISTORYAMS, HYPOTENSIONSTUDYCHEST, 1 VIEWCOMPARISONDecember 2019.FINDINGSThe trachea is midline. The cardiac silhouette is unremarkable . The lungs are clear without focal infiltrate or effusion. The bony thorax is unremarkable.IMPRESSIONNo acute cardiopulmonary disease and no significant change from the prior study June 18, 2020.Electronically signed by: CORRIE JOHN (Jun 22, 2020 14:09:02)
[2020-06-22 14:45] LABS: BASOPHILS # (AUTO) 0.1 X10^3/uL (0.0-0.1); BASOPHILS % (AUTO) 1.4 % (0.2-1.0); EOSINOPHILS # (AUTO) 0.2 x10^3/uL (0.0-0.2); EOSINOPHILS % (AUTO) 3.4 % (0.9-2.9); HEMATOCRIT 31.1 % (36.0-47.0); HEMOGLOBIN 9.7 g/dL (12.0-16.0); LYMPHOCYTES % (AUTO) 30.9 % (21.0-51.0); MEAN CORPUSCULAR HEMOGLOBIN 23.8 pg (27.0-34.0); MEAN CORPUSCULAR HGB CONC 31.2 g/dL (33.0-35.0); MEAN CORPUSCULAR VOLUME 76.1 fL (80.0-100.0); MONOCYTES # (AUTO) 0.7 x10^3/uL (0.3-0.8); MONOCYTES % (AUTO) 11.4 % (0.0-13.0); NEUTROPHILS # (AUTO) 3.4 x10^3/uL (2.2-4.8); NEUTROPHILS % (AUTO) 52.9 % (42.0-75.0); PLATELET COUNT 334 X10^3/uL (150.0-450.0); RED BLOOD COUNT 4.09 X10^6/uL (3.5-5.4); WHITE BLOOD COUNT 6.5 X10^3/uL (3.6-10.0)
[2020-06-22 15:02] LABS: ALANINE AMINOTRANSFERASE 22 Units/L (12-78); ALKALINE PHOSPHATASE 61 Units/L (46-116); ASPARTATE AMINO TRANSFERASE 24 Units/L (15-37); BLOOD UREA NITROGEN 13 mg/dL (7-18); CALCIUM 9.4 mg/dL (8.5-10.1); CARBON DIOXIDE 28.3 mmol/L (21-32); CHLORIDE 103 mmol/L (98-107); CREATININE 0.89 mg/dL (0.55-1.02); HYPOCHROMASIA 1+; PLATELET MORPHOLOGY COMMENT NORMAL (NORMAL); SODIUM 140 mmol/L (136-145); eGFR NON BLACK RACES > 60 (>60)
[2020-06-22 15:27] LABS: BILIRUBIN,URINE NEGATIVE (NEGATIVE); BLOOD/HEMOGLOBIN,URINE 4+ (NEGATIVE); GLUCOSE, URINE NEGATIVE (NEGATIVE); KETONES,URINE 1+ (NEGATIVE); LEUKOCYTE ESTERASE ,URINE 2+ (NEGATIVE); NITRITES,URINE POSITIVE (NEGATIVE); PROTEIN,URINE 2+ (NEGATIVE); UROBILINOGEN,URINE 2+ (NORMAL)
[2020-06-22 15:49] LABS: APPEARANCE,URINE CLOUDY (CLEAR); COLOR,URINE YELLOW (YELLOW)
[2020-06-22 15:50] LABS: BACTERIA,URINE 4+ /HPF (NEGATIVE); SQUAMOUS EPITHELIAL CELL,UR RARE /HPF (NEGATIVE)
[2020-06-22] MEDS ORDERED: ROCEPHIN 1 GRAM IV PREMIX 1 G/50 ML IV.SOLN. IV ONE ×2 (15:58→17:42)
--- NOTE | 2020-06-22 16:00 | RAD ---
PROCEDURE: Left foot three views.HISTORY: EMS CALLED OUT TO PATIENT FOR DECREASED MENTAL STATUS. UPON ARRIVAL TO ED TO ALERT AND SPEAKING TO STAFF. .TECHNIQUE: AP, oblique, and lateral views.COMPARISON: None .TECHNICAL QUALITY: Satisfactory .FINDINGS:No acute fracture or dislocation.No bony destruction or periosteal reaction.Mild to moderate osteoarthritic changes interphalangeal joints with joint space narrowing and spur formation. Moderate osteoarthritic changes 2nd metatarsophalangeal joint with bone on bone joint space narrowing and spur formation.Mild diffuse demineralization of bone.Small to moderate inferior calcaneal spur.No soft tissue abnormality.IMPRESSION:1. No acute bony abnormality.2. Osteoarthritic changes.3. Calcaneal spur.Electronically signed by: Dillon Elmore (Jun 22, 2020 15:58:35)
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
[2020-06-22] MEDS ORDERED: NS 1000 ML 1,000 ML ONE (17:41)
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
[2020-06-22] MEDS ORDERED: NS 1000 ML 1,000 ML IV SCH (19:00)
[2020-06-23] MEDS: PERIACTIN TAB 4 MG PO SCH ×3 (06:14→22:05)
[2020-06-23] MEDS ORDERED: FORTAZ or TAZICEF VIAL INJ ONE ×2 (06:15→13:05)
[2020-06-23] MEDS ORDERED: NS 100 ML IV + SPIKE MINIBAG* 100 ML IV ONE (06:16)
[2020-06-23] MEDS: NS 1000 ML 1,000 ML IV SCH ×3 (06:21→15:25)
[2020-06-23] MEDS: FORTAZ or TAZICEF VIAL INJ 1 G in NS 100 ML IV + SPIKE MINIBAG* 100 ML IV SCH ×3 (06:21→22:06)
[2020-06-23 07:00] LABS: BASOPHILS # (AUTO) 0.1 X10^3/uL (0.0-0.1); EOSINOPHILS # (AUTO) 0.2 x10^3/uL (0.0-0.2); EOSINOPHILS % (AUTO) 2.8 % (0.9-2.9); HEMATOCRIT 26.7 % (36.0-47.0); HEMOGLOBIN 8.4 g/dL (12.0-16.0); LYMPHOCYTES # (AUTO) 1.3 X10^3/uL (1.3-2.9); LYMPHOCYTES % (AUTO) 23.6 % (21.0-51.0); MEAN CORPUSCULAR HEMOGLOBIN 23.7 pg (27.0-34.0); MEAN CORPUSCULAR HGB CONC 31.4 g/dL (33.0-35.0); MEAN CORPUSCULAR VOLUME 75.5 fL (80.0-100.0); MEAN PLATELET VOLUME 7.8 fL (7.4-11.0); MONOCYTES # (AUTO) 0.7 x10^3/uL (0.3-0.8); NEUTROPHILS # (AUTO) 3.5 x10^3/uL (2.2-4.8); NEUTROPHILS % (AUTO) 60.6 % (42.0-75.0); PLATELET COUNT 305 X10^3/uL (150.0-450.0); RED BLOOD COUNT 3.54 X10^6/uL (3.5-5.4); RED CELL DISTRIBUTION WIDTH 16.1 % (11.6-16.5); WHITE BLOOD COUNT 5.7 X10^3/uL (3.6-10.0)
[2020-06-23 07:28] LABS: ALANINE AMINOTRANSFERASE 15 Units/L (12-78); ALBUMIN 1.6 g/dL (3.4-5.0); ALKALINE PHOSPHATASE 46 Units/L (46-116); ASPARTATE AMINO TRANSFERASE 12 Units/L (15-37); BLOOD UREA NITROGEN 15 mg/dL (7-18); CALCIUM 9.1 mg/dL (8.5-10.1); CHLORIDE 104 mmol/L (98-107); CREATININE 0.79 mg/dL (0.55-1.02); SODIUM 140 mmol/L (136-145); TOTAL PROTEIN 5.7 g/dL (6.4-8.2); eGFR NON BLACK RACES > 60 (>60)
[2020-06-23 07:41] LABS: HYPOCHROMASIA 1+; PLATELET MORPHOLOGY COMMENT NORMAL (NORMAL)
[2020-06-23 07:43] LABS: CARBON DIOXIDE 27.5 mmol/L (21-32)
[2020-06-23] MEDS ORDERED: LEVAQUIN PREMIX IV 500 MG 500 MG/100 ML BAG IV ONE (08:40)
[2020-06-23] MEDS: LEVAQUIN PREMIX IV 500 MG 500 MG/100 ML BAG IV SCH (09:15)
[2020-06-23] MEDS: FERROUS GLUCONATE PO SCH (10:14)
[2020-06-23] MEDS: MIRALAX POWDER (1 DOSE 17 G) PO SCH (10:15)
[2020-06-23] MEDS: PROTONIX TAB 40 MG PO SCH (10:16)
[2020-06-23] MEDS ORDERED: NS 1000 ML 1,000 ML ONE (12:55)
[2020-06-23] MEDS ORDERED: NS 100 ML IV 100 ML IV ONE (13:06)
[2020-06-23] MEDS: K-RIDER 10 MEQ/NS 100 ML 10 MEQ/100 ML BAG IV PRN (15:48)
--- NOTE | 2020-06-23 21:43 | DR.H&P ---
H&P - History & Physical for Day of: H&P Date: 06/22/20 - Chief Complaint Chief Complaint: AMS, DECREASED APPETITE, WEAKNESS - History of Present Illness History of Present Illness: IS A 84 YEAR OLD PATIENT OF BILL BILL. SHE PRESENTED TO THE ER VIA EMS. FAMILY REPORTS THAT PATIENT HAS HAD DECREASED ALERTNESS, ALTERED MENTAL STATUS, AND WEAKNESS. THE ALSO REPORT THAT SHE HAS HAD FEVER AND HAS MULTIPLE WOUNDS ON BODY. THEY REPORT THAT SHE HAS ALSO NOT EATEN MUCH AT ALL. SYMPTOMS REPORTEDLY STARTED ABOUT TWO DAYS PRIOR TO ARRIVAL. 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 HER PMH INCLUDES HYPERTENSION, CHRONIC BRONCHITIS, GASTROINTESTINAL ULCER, ARTHRITIS, ANEMIA, METASTATIC BONE CANCER, ANEMIA, , HYSTERECTOMY, AND TONSILLECTOMY. ON ARRIVAL TO THE ER, VITALS WERE 101.7-97-18-96%-119/59. LABS WERE OBTAINED. ABNORMAL LAB VALUES INCLUDE THE FOLLOWING: HGB 9.7, HCT 31.1, CORRECTED CALCIUM 11.0, TOTAL PROTEIN 6.0, ALBUMIN 2.0, CRP 172.20. URINALYSIS WAS OBTAINED AND REVEALED: WBC 20-30, RBC 5-10, LEUKOCYTES 2+, BACTERIA 4+, NITRITE POSITIVE, OCCULT BLOOD 4+, KETONES 1+, PROTEIN 2+. BLOOD AND URINE CULTRES WERE SET UP. A CHEST XRAY WAS OBTAINED AND REVEALED: No acute cardiopulmonary disease and no significant change from the prior study June 18, 2020. EKG REVEALED: SINUS RHYTHM WITH HR 99. A LEFT FOOT XRAY WAS OBTAINED AND REVEALED: 1. No acute bony abnormality. 2. Osteoarthritic changes. 3. Calcaneal spur. FAMILY REQUEST THAT PATIENT BE SENT FOR PHYSICAL THERAPY AND REHAB AT [facility]. PATIENT WAS ADMITTED TO THE HOSPITAL FOR FURTHER EVALUATION AND TREATMENT OF SEPSIS, URINARY TRACT INFECTION, AND MULTIPLE PRESSURE ULCERS. SHE WAS STARTED ON NS AT 75 ML/HR, FORTAZ 1G IV Q8H, LEVAQUIN 500MG IV DAILY, AND HER HOME MEDICATIONS WERE RESUMED. WE WILL CONSULT FOR POSSIBLE DEBRIDEMENT AND CENTRAL LINE. OTHERWISE, WE WILL FOLLOW UP WITH AM LABS AND CONTINUE TO MONITOR. TIME SPENT ON CLINICAL ASSESSMENT, REVIEWING LABS AND IMAGING, DECISION MAKING, AND DOCUMENTATION GREATER THAN 75 MINUTES. - Past Medical History Past Medical History: Hypertension, Anemia, Arthritis - Past Surgical History Surgical History: , Hysterectomy, Tonsillectomy - Family History Family Medical History: Diabetes Mellitus, Cancer, Hypertension - Social History Does any household member use tobacco: No Alcohol Use: None Drug Use: None - Medications Home Medications: codeine Allergy (Verified 01/29/20 12:44) Sulfa (Sulfonamide Antibiotics) [SULFA] Allergy (Verified 01/29/20 12:44) - Review of Systems Constitutional: Fever, Weakness Eyes: No Symptoms Reported ENT: No Symptoms Reported Respiratory: No Symptoms Reported Cardiovascular: No Symptoms Reported Gastrointestinal: No Symptoms Reported Genitourinary: No Symptoms Reported Musculoskeletal: No Symptoms Reported Skin: See HPI, Wound Neurological: Weakness - Physical Exam Vital Signs: Temperature 98.2 F Pulse Rate [Right Radial] 84 Pulse Rate 89 Respiratory Rate 18 Blood Pressure [Left Arm] 120/58 Blood Pressure 122/58 O2 Sat by Pulse Oximetry 93 Oriented: Normal Eyes: Normal Ear: Normal Nose: Normal Throat: Normal Respiratory: Diminished Throughout Cardiovascular: Normal : Normal Auscultation: Bowel Sounds: Normal Palpation: Normal Tenderness: Normal Skin: Wound Musculoskeletal: Normal Psychiatric: Normal Mood Description: Calm Affect: Normal Speech Pattern: Clear - Assessment/Plan (1) Acute UTI Status: Acute Plan: NS AT 75 ML/HR, FORTAZ 1G IV Q8H, LEVAQUIN 500MG IV DAILY, AND HER HOME MEDICATIONS WERE RESUMED. (2) Sepsis Qualifiers: Sepsis type: sepsis due to unspecified organism Sepsis acute organ dysfunction status: without acute organ dysfunction Qualified Code(s): A41.9 - Sepsis, unspecified organism Status: Acute (3) Decubitus ulcer of heel, left, unstageable Status: Acute Plan: CONSULT FOR POSSIBLE DEBRIDEMENT - Review H&P Reviewed: Yes Patient was examined?: Yes - Allergies Allergies/Adverse Reactions: Allergies Allergy/AdvReac Type Severity Reaction Status Date / Time codeine Allergy Verified 01/29/20 12:44 Sulfa (Sulfonamide Allergy Verified 01/29/20 12:44 Antibiotics) [SULFA]
[2020-06-24] MEDS: K-RIDER 10 MEQ/NS 100 ML 10 MEQ/100 ML BAG IV PRN ×3 (00:43→03:45)
[2020-06-24] MEDS: MAGNESIUM SULFATE 1 GRAM/100 mL PREMIX 1 GM/100 ML BAG IV PRN ×2 (04:50→05:55)
[2020-06-24] MEDS: NS 1000 ML 1,000 ML IV SCH (05:51)
[2020-06-24 06:48] LABS: BASOPHILS % (AUTO) 0.9 % (0.2-1.0); EOSINOPHILS # (AUTO) 0.2 x10^3/uL (0.0-0.2); EOSINOPHILS % (AUTO) 3.8 % (0.9-2.9); HEMATOCRIT 24.4 % (36.0-47.0); HEMOGLOBIN 7.8 g/dL (12.0-16.0); LYMPHOCYTES # (AUTO) 1.3 X10^3/uL (1.3-2.9); LYMPHOCYTES % (AUTO) 28.1 % (21.0-51.0); MEAN CORPUSCULAR HEMOGLOBIN 24.2 pg (27.0-34.0); MEAN CORPUSCULAR HGB CONC 31.9 g/dL (33.0-35.0); MEAN CORPUSCULAR VOLUME 75.9 fL (80.0-100.0); MEAN PLATELET VOLUME 7.9 fL (7.4-11.0); MONOCYTES # (AUTO) 0.6 x10^3/uL (0.3-0.8); MONOCYTES % (AUTO) 13.3 % (0.0-13.0); NEUTROPHILS # (AUTO) 2.4 x10^3/uL (2.2-4.8); NEUTROPHILS % (AUTO) 53.9 % (42.0-75.0); PLATELET COUNT 253 X10^3/uL (150.0-450.0); RED BLOOD COUNT 3.22 X10^6/uL (3.5-5.4); WHITE BLOOD COUNT 4.5 X10^3/uL (3.6-10.0)
[2020-06-24 06:49] LABS: ALANINE AMINOTRANSFERASE 12 Units/L (12-78); ALBUMIN 1.5 g/dL (3.4-5.0); ALKALINE PHOSPHATASE 38 Units/L (46-116); ASPARTATE AMINO TRANSFERASE 10 Units/L (15-37); BLOOD UREA NITROGEN 14 mg/dL (7-18); CARBON DIOXIDE 26.8 mmol/L (21-32); CHLORIDE 107 mmol/L (98-107); CREATININE 0.71 mg/dL (0.55-1.02); SODIUM 141 mmol/L (136-145); TOTAL PROTEIN 5.3 g/dL (6.4-8.2); eGFR NON BLACK RACES > 60 (>60)
[2020-06-24] MEDS: FORTAZ or TAZICEF VIAL INJ 1 G in NS 100 ML IV + SPIKE MINIBAG* 100 ML IV SCH (06:59)
[2020-06-24 07:34] LABS: PLATELET MORPHOLOGY COMMENT NORMAL (NORMAL)
[2020-06-24 07:35] LABS: ANISOCYTOSIS 1+; HYPOCHROMASIA 1+
[2020-06-24 08:16] VITALS: BP 108/56
[2020-06-24] MEDS: MIRALAX POWDER (1 DOSE 17 G) PO SCH (08:46)
[2020-06-24] MEDS: PROTONIX TAB 40 MG PO SCH (08:46)
[2020-06-24] MEDS: LEVAQUIN PREMIX IV 500 MG 500 MG/100 ML BAG IV SCH (08:46)
[2020-06-24] MEDS: PERIACTIN TAB 4 MG PO SCH (08:46)
[2020-06-24] MEDS: FERROUS GLUCONATE PO SCH (08:46)
== END 2020-06-24 11:20 | disposition hospice, home (50) ==
LOC: OBS 13:16 → ER 13:16 → OBS 21:36 → MED/SURG 06-23 14:06
PROVIDERS: ADMIT Internal Medicine; ATTEND Internal Medicine
DX: R79.82 Elevated C-reactive protein (CRP); B96.29 Other Escherichia coli [E. coli] as the cause of diseases classified elsewhere; A41.9 Sepsis, unspecified organism; N39.0 Urinary tract infection, site not specified; M77.32 Calcaneal spur, left foot; L89.322 Pressure ulcer of left buttock, stage 2; L89.151 Pressure ulcer of sacral region, stage 1; I87.2 Venous insufficiency (chronic) (peripheral); I10 Essential (primary) hypertension; L89.623 Pressure ulcer of left heel, stage 3; R41.82 Altered mental status, unspecified; R53.1 Weakness; L89.312 Pressure ulcer of right buttock, stage 2; Z20.828 Contact with and (suspected) exposure to other viral communicable diseases